=== PATIENT | female | born 1990 | race Caucasian/White ===

== ENCOUNTER 2021-04-27 09:33 | Day surgery (SDC) | payer SELFPAY ==
[2021-04-27] VITALS (7 sets, daily range): BP systolic 112–126; BP diastolic 73–81; PULSE 72–112; RESP 16–18; TEMP 36.3–36.9; O2SAT 98–100; BMI 41.4
--- NOTE | 2021-04-27 | COLBX_PTH ---
PATIENT: WALT SANCHEZ LOC: EN U#:[id number] AGE/SX: 31/F ROOM: RE04/27/[address]: Dr. Adalberto Peterson DO : 1990 BED: DIS: 04/27/2021 SPEC #: [id number] RECD: 04/27/21 14:18 STATUS: MERON CINDY #: [id number] SHAWN: 04/27/21 00:[address]: Adalberto Peterson DEPT: SURGICAL PATHOLOGY RECD BY: Hugh Watkins ENTERED: 04/28/21 09:03 SP TYPE: COLON BX OTHR DR: Heidy Hopkins, OSTOMY RN-C Tissues: A - Ileum, NOS B - COLON BIOPSY C - Rectum, NOS Procedures: Surgery Specimen Level IV HEADER OPERATION: Colonoscopy PRE-OP DIAGNOSIS: Lower GI bleeding TISSUE SUBMITTED: A - Terminal ileum biopsy, B - Random colon biopsies, C - Biopsy of rectal polyp MICROSCOPIC DIAGNOSIS A. Terminal ileum, biopsy: Fragments of small intestinal mucosa, no pathologic diagnosis. B. Colon, random biopsy: Moderate to marked chronic active colitis. Negative for dysplasia. See microscopic description and comment. C. Rectal polyp, biopsy: Fragments of inflammatory pseudopolyp. Moderate to marked chronic active colitis. Negative for dysplasia. See microscopic description and comment. SJ:rg 04/29/2021 COMMENT B & C. The findings are consistent with inflammatory bowel disease (ulcerative colitis). Correlation with clinical, endoscopic findings and appropriate follow up are necessary. MICROSCOPIC DESCRIPTION Slides are reviewed. B & C. Both specimens show similar morphologic changes. Specimens show fragments of colonic mucosa with ulceration, moderate to marked acute and chronic inflammatory cell infiltrate in the lamina propria, cryptitis, crypt abscesses, glandular distortion and lymphoid aggregates. Granuloma or dysplasia is not seen. Specimen C also shows two fragments of inflammatory pseudopolyp. GROSS DESCRIPTION A - Received in fixative is one container labeled with the patient's name and designated terminal ileum biopsy. The specimen consists of multiple irregular fragments of light dejesus soft tissue that in aggregate measure 1 x 0.5 x 0.1 cm. The specimen is totally submitted in one cassette. B - Received in fixative is one container labeled with the patient's name and designated random colon biopsy. The specimen consists of multiple irregular fragments of light dejesus soft tissue that in aggregate measure 1.5 x 0.3 x 0.1 cm. The specimen is totally submitted in one cassette. C - Received in fixative is one container labeled with the patient's name and designated biopsy of rectal polyp. The specimen consists of multiple irregular fragments of light dejesus soft tissue that in aggregate measure 1 x 0.4 x 0.1 cm. The specimen is totally submitted in one cassette. / SJ:rg 04/28/21 TC:2 CPT: 24795 x3
[2021-04-27] MEDS: Lactated Ringers 1,000 ML 100 ML IV (10:08)
--- NOTE | 2021-04-27 11:09 | PCM.HP.BLA ---
History and Physical Date of Admission: 04/27/21 WALT SANCHEZ, is a 31 F who presents to the office today for evaluation of blood in her stools. She says that for many years she has had IBS type symptoms with bloating, cramping and occasional diarrhea. In December however she developed worsening diarrhea and it progressed to lower GI bleeding. The lower GI bleeding always accompanied urgency and frequency. She also will get cramping in the left lower quadrant and the periumbilical region. She has no family history of inflammatory bowel disease. She has not started any new medicines recently. She has been under some stress from work and due to the illness of her grandmother. She does not take any blood thinners. She does take vitamin C and aspirin on occasion. She has no bleeding issues. She has not had any surgery. She does not have any children. She did have some stool studies which were negative for C. difficile and enteric pathogens. However her fecal calprotectin was grossly abnormal. She has been taking a probiotic and Imodium and it has been helping however she still is having bleeding on a daily basis. All other 16 review of systems are negative except as per positive mentioned HPI. ROS Const Constitutional: Positive for weight change (Loss) Gastro GI: Positive for change in bowel habits and diarrhea Psych Psychiatric: Positive for anxiety Exam Const General: cooperative and comfortable Nutritional Appearance: average body habitus and well nourished [facility] Head: normal to inspection Ears: hearing grossly normal bilaterally Nose: external nose normal Face and sinus: normal facial exam Mouth: oral mucosae normal Throat: posterior oropharynx normal Eyes General: appearance normal, both eyes and all related structures Neck Neck: normal visual inspection Chest Chest palpation & inspection: normal inspection of the chest and normal palpation of entire chest wall Resp Effort & Inspection: normal respiratory effort Auscultation: Bilateral: Clear to Auscultation Cardio Palpation: normal PMI Rate: regular rate Rhythm: regular rhythm GI Inspection: normal to inspection Auscultation: normal bowel sounds Percussion: normal to percussion Palpation: no hepatosplenomegaly Skin General: no rashes or lesions noted Neuro General: patient alert Extrem General: normal to inspection Psych Affect: normal affect Assessment and Plan Assessment and Plan (1) Lower GI bleeding: Status: Acute Plan - Dr. Glover Friend, DO: The differential diagnosis for lower GI bleeding include ulcerative colitis, less likely Crohn's disease, infectious colitis ,proctitis, hemorrhoidal disease, anal fissure and less likely AVMs. She should undergo colonoscopy to evaluate her lower GI tract. She was explained alternatives, risk, benefits including outstanding bleeding, infection, sepsis, perforation, need for emergency or . She will have an ASA of 1. Plan Details Other Medications: New: polyethylene glycol 3350 (Miralax) 17 grams PO Q10M 238 grams 0RF bisacodyl 20 mg (4 x 5 mg) PO ONCE 4 tabs 0RF This is an updated H&P from a recent office visit. Nothing is changed since she was seen in the office.
--- NOTE | 2021-04-27 12:50 | OP.CCLET_ITS ---
03/23/2022 Heidy Hopkins Re : Colonoscopy procedure for Megan Hopkins This procedure was performed on Tuesday, April 27, 2021. My impressions and recommendations are as follows: Impressions : - Moderately active (Chery Score 2) pancolitis ulcerative colitis. Biopsied. - One benign appearing 5 mm polyp in the rectum, removed with a jumbo cold forceps. Resected and retrieved. - Congested mucosa in the distal ileum. Biopsied. Recommendations : - Discharge patient to home. - Resume previous diet today. - Use Entocort EC (budesonide) 9 mg PO one time per day today. - Vancocin (vancomycin) 125 mg PO QID for 2 weeks. - Continue present medications. - Repeat colonoscopy in 1 year for surveillance based on pathology results. - Return to GI office in 2 weeks. My findings are described in the full procedure note, which is enclosed. If I can be of further assistance, please feel free to contact me at . Sincerely, Adalberto Peterson, 04/27/2021 12:50:06 PM This report has been signed electronically.
--- NOTE | 2021-04-27 12:50 | OP.COLON_ITS ---
Patient Name: Megan Meza Procedure Date: 04/27/2021 12:11 PM Date of : 1990 Age: 31 Procedure: Colonoscopy Indications: Suspected chronic ulcerative pancolitis Providers: Adalberto Peterson DO Medicines: Monitored Anesthesia Care Patient Profile: This is a 31 year old female. Refer to note in patient chart for documentation of history and physical. Last Colonoscopy: none. The patient's first colonoscopy is today. Complications: No immediate complications. Procedure: Pre-Anesthesia Assessment: - Prior to the procedure, a History and Physical was performed, and patient medications and allergies were reviewed. The patient is competent. The risks and benefits of the procedure and the sedation options and risks were discussed with the patient. All questions were answered and informed consent was obtained. Patient identification and proposed procedure were verified by the physician in the pre-procedure area. Mental Status Examination: alert and oriented. Respiratory Examination: clear to auscultation. Prophylactic Antibiotics: The patient does not require prophylactic antibiotics. Prior Anticoagulants: The patient has taken no previous anticoagulant or antiplatelet agents. ASA Grade Assessment: II - A patient with mild systemic disease. After reviewing the risks and benefits, the patient was deemed in satisfactory condition to undergo the procedure. The anesthesia plan was to use moderate sedation / analgesia (conscious sedation). Immediately prior to administration of medications, the patient was re-assessed for adequacy to receive sedatives. The heart rate, respiratory rate, oxygen saturations, blood pressure, adequacy of pulmonary ventilation, and response to care were monitored throughout the procedure. The physical status of the patient was re-assessed after the procedure. After I obtained informed consent, the scope was passed under direct vision. Throughout the procedure, the patient's blood pressure, pulse, and oxygen saturations were monitored continuously. The Colonoscope was introduced through the anus and advanced to the cecum, identified by appendiceal orifice and ileocecal valve. The colonoscopy was performed without difficulty. The patient tolerated the procedure well. The quality of the bowel preparation was good. Moderate Sedation: Moderate (conscious) sedation was personally administered by an anesthesia professional. The following parameters were monitored: oxygen saturation, heart rate, blood pressure, and response to care. Scope In: 12:27:12 PM Scope Out: 12:41:56 PM Total Procedure Duration Time 0 hours 14 minutes 44 seconds Findings: The perianal and digital rectal examinations were normal. Inflammation was found in a continuous and circumferential pattern from the anus to the cecum. This was graded as Chery Score 2 (moderate, with marked erythema, absent vascular pattern, friability, erosions). Biopsies were taken with a cold forceps for histology. Verification of patient identification for the specimen was done. Estimated blood loss was minimal. A 5 mm polyp was found in the rectum (benign-appearing lesion). The polyp was sessile. The polyp was removed with a jumbo cold forceps. Resection and retrieval were complete. Verification of patient identification for the specimen was done. Estimated blood loss was minimal. A patchy area of the distal ileum was congested. This was biopsied with a cold forceps for histology. Verification of patient identification for the specimen was done. Estimated blood loss was minimal. Impression: - Moderately active (Chery Score 2) pancolitis ulcerative colitis. Biopsied. - One benign appearing 5 mm polyp in the rectum, removed with a jumbo cold forceps. Resected and retrieved. - Congested mucosa in the distal ileum. Biopsied. Recommendation: - Discharge patient to home. - Resume previous diet today. - Use Entocort EC (budesonide) 9 mg PO one time per day today. - Vancocin (vancomycin) 125 mg PO QID for 2 weeks. - Continue present medications. - Repeat colonoscopy in 1 year for surveillance based on pathology results. - Return to GI office in 2 weeks. Procedure Code(s): --- Professional --- 20838, Colonoscopy, flexible; with biopsy, single or multiple CPT copyright 2017 [employer]. All rights reserved. The codes documented in this report are preliminary and upon emotional disabilities teacher review may be revised to meet current compliance requirements. Adalberto Peterson DO 04/27/2021 12:50:06 PM This report has been signed electronically. Number of Addenda: 1 Note Initiated On: 04/27/2021 12:11 PM Addendum Number: 1 Addendum Date: 03/23/2022 4:22:13 PM MAC was used instead of moderate sedation for this patient. Adalberto Peterson DO 03/23/2022 4:22:18 PM This report has been signed electronically.
== END 2021-04-27 13:42 ==
LOC: EN 09:46 → AC 09:56
PROVIDERS: PCP Nurse Practitioner Family; Referring Provider Nurse Practitioner Family; Visit Provider Internal Medicine Gastroenterology
PROC: 0DJD8ZZ Inspection of Lower Intestinal Tract, Via Natural or Artificial Opening Endoscopic (ICD-10-PCS; CPT 45378; principal; 2021-04-27 10:55)
DX: K51.011 Ulcerative (chronic) pancolitis with rectal bleeding (principal); K62.1 Rectal polyp; L70.9 Acne, unspecified; E28.2 Polycystic ovarian syndrome; R63.4 Abnormal weight loss; Z79.82 Long term (current) use of aspirin; Z79.899 Other long term (current) drug therapy; Z68.41 Body mass index [BMI] 40.0-44.9, adult
CPT/HCPCS: 45380; 87493; 87506; 88305; J7120; J2405

== ENCOUNTER 2021-07-27 16:43 | Outpatient (CLI) | payer OTHER, SELFPAY ==
[2021-07-27 16:57] LABS: Absolute Lymphocyte Count 3.23 X10^3/uL (0.83-4.51); Absolute Neutrophil Count 7.4 X10^3/uL (2.0-7.7); Basophil# 0.06 X10^3/uL; Basophil% 0.5 % (0-1); Eosinophil# 0.53 X10^3/uL; Eosinophils% 4.3 % (0-5); Hematocrit 36.8 % (37-47); Hemoglobin 11.9 g/dL (12.0-15.0); Lymphocyte # 3.23 X10^3/ul (0.83-4.51); Lymphocyte % 26.3 % (19-41); Mean Corp Hgb Conc 32.3 g/dL (32-36); Mean Corpuscular Hgb 27.4 pg (27.0-32.0); Mean Corpuscular Volume 84.8 fL (81-99); Mean Platelet Vol. 9.3 fl (6.2-12.0); Monocyte# 1.05 X10^3/uL; Monocyte% 8.5 % (0-10); NRBC Flagged by Analyzer 0 % (0-5); Neutrophil # 7.37 X10^3/uL (2.7-7.7); Neutrophil % 59.9 % (47-70); Platelet Count 455 K/mm3 (150-450); RBC Distribution Width CV 14.8 % (11.6-14.6); RBC Distribution Width SD 45.4 fl (35.1-43.9); Red Blood Count 4.34 M/mm3 (4.2-5.4); White Blood Count 12.3 K/mm3 (4.4-11.0)
[2021-07-27 17:14] LABS: ALB/GLOB Ratio 0.6 RATIO (0.9-2.4); AST(SGOT) 17 U/L (15-37); Alanine Aminotransfer ALT/SGPT 24 U/L (13-56); Albumin, Serum 3.1 g/dL (3.2-5.0); Alkaline Phosphatase 105 U/L (45-117); Anion Gap 8 (5-15); BUN 8 mg/dL (7-18); BUN/Creat Ratio 10.5 RATIO (10-20); Calcium,Total 9.6 mg/dL (8.5-10.1); Chloride 104 mmol/L (98-107); Creatinine, Serum 0.76 mg/dL (0.55-1.02); EST Glomerular Filtration Rate 94 mL/min (>60); Est Glom Filt Rate - Afr Amer 114 mL/min (>60); Globulin 5.3 g/dL (2.2-4.2); Glucose 84 mg/dL (74-106); Potassium 3.8 mmol/L (3.5-5.1); Protein, Total 8.4 g/dL (6.4-8.2); Sodium Level 139 mmol/L (136-145)
[2021-07-27 17:42] LABS: Erythrocyte Sedimentation Rate 49 mm/hr (0-30)
[2021-07-28 06:27] LABS: Rubella IgG Reactive (Nonreactive)
[2021-08-02 00:06] LABS: HEPATITIS B SURFACE AG Negative (Negative); Hepatitis A IgM Antibody Negative (Negative); Hepatitis B Core AB IgM Negative (Negative)
[2021-08-02 08:47] LABS: B. pertussis IgG 1.88 index (0.00-0.94); Hep C Antibodies <0.1 s/co ratio (0.0-0.9); Mumps Antibody, IgM < 0.80 AU (0.00-0.79); V-Zoster IgG (Immunity) 219 index (Immune >165)
== END 2021-07-27 23:59 | disposition short-term general hospital (02) ==
LOC: LAB 16:45
PROVIDERS: PCP Nurse Practitioner Family; Visit Provider Internal Medicine Gastroenterology
DX: K51.90 Ulcerative colitis, unspecified, without complications (principal)
CPT/HCPCS: 36415; 80053; 80074; 85025; 85652; 86140; 86735; 86762; 86787

== ENCOUNTER 2021-08-17 12:46 | Outpatient (CLI) | payer OTHER, SELFPAY ==
--- NOTE | 2021-08-17 12:50 | CT_ITS ---
STUDY: CT ABDOMEN AND PELVIS WITH CONTRAST REASON FOR EXAM: Female, 31 years old. Abdominal pain, ulcerative colitis RADIATION DOSAGE (If Supplied By Facility): CTDIvol = ( 22.06 ) mGy, DLP = ( 1221.07 ) mGycm TECHNIQUE: Transaxial images were obtained from the dome of the diaphragm to the symphysis pubis with oral contrast. Oral and amp; IV Gastrografin and amp; 100mL Isovue-300 was administered. Sagittal and coronal images were reconstructed. Individualized dose optimization techniques were used for this CT. COMPARISON: None. FINDINGS: The visualized lung bases are unremarkable. The visualized portions of the heart are within normal limits. Normal liver. Normal gallbladder and extrahepatic biliary system. Normal spleen. Normal pancreas. Normal bilateral adrenal glands. Normal right kidney. Normal left kidney. Normal visualized stomach. Normal small intestine. Normal colon. The appendix is visualized and appears normal. Normal abdominal aorta. Normal inferior vena cava. Normal retroperitoneum. Normal urinary bladder. Normal abdominal wall. Normal osseous structures. CT/Abdomen/Pelvis WITH Contrast IMPRESSION: Normal enhanced CT of the abdomen and pelvis. Electronically Signed: Henri Bazan MD at 15:17 [facility] ,
== END 2021-08-17 23:59 | disposition short-term general hospital (02) ==
LOC: CT 12:48
PROVIDERS: PCP Nurse Practitioner Family; Referring Provider Internal Medicine Gastroenterology; Visit Provider Internal Medicine Gastroenterology
DX: K51.90 Ulcerative colitis, unspecified, without complications (principal)
CPT/HCPCS: 74177; Q9967

== ENCOUNTER 2021-09-07 14:56 | Outpatient (CLI) | payer OTHER, SELFPAY ==
[2021-09-07 15:34] LABS: Absolute Lymphocyte Count 2.35 X10^3/uL (0.83-4.51); Absolute Neutrophil Count 9.2 X10^3/uL (2.0-7.7); Basophil# 0.06 X10^3/uL; Basophil% 0.5 % (0-1); Eosinophil# 0.13 X10^3/uL; Hematocrit 37.6 % (37-47); Hemoglobin 12.1 g/dL (12.0-15.0); Lymphocyte # 2.35 X10^3/ul (0.83-4.51); Lymphocyte % 18.6 % (19-41); Mean Corp Hgb Conc 32.2 g/dL (32-36); Mean Corpuscular Hgb 27.5 pg (27.0-32.0); Mean Corpuscular Volume 85.5 fL (81-99); Mean Platelet Vol. 10.1 fl (6.2-12.0); Monocyte# 0.84 X10^3/uL; Monocyte% 6.6 % (0-10); NRBC Flagged by Analyzer 0 % (0-5); Neutrophil # 9.21 X10^3/uL (2.7-7.7); Neutrophil % 72.9 % (47-70); Platelet Count 364 K/mm3 (150-450); RBC Distribution Width CV 15.2 % (11.6-14.6); RBC Distribution Width SD 47.5 fl (35.1-43.9); White Blood Count 12.6 K/mm3 (4.4-11.0)
[2021-09-07 15:56] LABS: ALB/GLOB Ratio 0.7 RATIO (0.9-2.4); AST(SGOT) 10 U/L (15-37); Alanine Aminotransfer ALT/SGPT 17 U/L (13-56); Albumin, Serum 3.1 g/dL (3.2-5.0); Alkaline Phosphatase 86 U/L (45-117); Anion Gap 8 (5-15); BUN 9 mg/dL (7-18); BUN/Creat Ratio 10.1 RATIO (10-20); Calcium,Total 8.9 mg/dL (8.5-10.1); Chloride 106 mmol/L (98-107); Creatinine, Serum 0.89 mg/dL (0.55-1.02); EST Glomerular Filtration Rate 79 mL/min (>60); Est Glom Filt Rate - Afr Amer 95 mL/min (>60); Globulin 4.6 g/dL (2.2-4.2); Glucose 124 mg/dL (74-106); Potassium 3.5 mmol/L (3.5-5.1); Protein, Total 7.7 g/dL (6.4-8.2); Sodium Level 137 mmol/L (136-145)
[2021-09-07 15:59] LABS: Erythrocyte Sedimentation Rate 36 mm/hr (0-30)
[2021-09-09 20:08] LABS: QNTFERON TB Mitogen Value > 10.00 IU/mL (.); QNTFERON TB Nil Value 0.02 IU/mL (.); QNTFERON TB1+ Ag Value 0.03 IU/mL (.); QNTFERON TB2+ Ag Value 0.03 IU/mL (.)
[2021-09-09 20:26] LABS: QNTIFERON TB Positive Criteria Negative (Negative)
== END 2021-09-07 23:59 | disposition home or self-care (01) ==
LOC: LAB 14:58
PROVIDERS: Nurse Practitioner Adult Health; PCP Nurse Practitioner Family; Referring Provider Internal Medicine Gastroenterology; Visit Provider Internal Medicine Gastroenterology
DX: K51.90 Ulcerative colitis, unspecified, without complications (principal)
CPT/HCPCS: 36415; 80053; 85025; 85652; 86140; 86480

== ENCOUNTER 2021-09-14 07:09 | Outpatient (CLI) | payer OTHER, SELFPAY ==
[2021-09-16 17:21] LABS: Calprotectin, Stool 62 ug/g (0-120)
== END 2021-09-14 23:59 | disposition home or self-care (01) ==
LOC: LABSPEC 07:11
PROVIDERS: PCP Nurse Practitioner Family; Referring Provider Nurse Practitioner Adult Health; Visit Provider Nurse Practitioner Adult Health
DX: K51.90 Ulcerative colitis, unspecified, without complications (principal)
CPT/HCPCS: 83993

== ENCOUNTER 2021-11-02 12:36 | Outpatient (CLI) | payer OTHER, SELFPAY | END 2021-11-02 23:59 | disposition home or self-care (01) | LOC: LAB 12:39 | PROVIDERS: PCP Nurse Practitioner Family; Referring Provider Internal Medicine Gastroenterology; Visit Provider Internal Medicine Gastroenterology | DX: K51.90 Ulcerative colitis, unspecified, without complications (principal) ==

== ENCOUNTER → 2021-12-27 | Outpatient (CLI) | payer OTHER, SELFPAY ==
--- NOTE | 2021-12-27 17:38 | MRI_ITS ---
STUDY: MRI RIGHT ANKLE WITHOUT CONTRAST REASON FOR EXAM: Chronic right ankle pain and instability for approximately 9 years. TECHNIQUE: Standardized fat and water weighted pulse sequences were obtained in all 3 orthogonal planes. COMPARISON: None. FINDINGS: Normal subcutis adipose space. There is a very small volume of fluid in the. Normal talar posterior tibialis tendon sheath (T2 axial images 15-17). The posterior tibialis tendon is morphologically normal. There is a very small volume of fluid in the flexor digitorum longus tendon sheath proximal to the sustentaculum maria r (T2 axial images 15-17). The flexor digitorum longus tendon is morphologically normal. There is fluid in the flexor hallucis longus tendon sheath, proximal and distal to the sustentaculum maria r (inversion recovery sagittal image 8). Normal peroneus longus and brevis tendons. Normal tibialis anterior tendon. Normal extensor hallucis longus tendon. Normal extensor digitorum longus tendons. Normal Achilles tendon and teno-osseous insertion. Normal plantar fascia. Normal plantar calcaneal tubercles. Normal intrinsic muscles of the rearfoot. Normal distal tibiofibular syndesmotic ligamentous complex. There is a chronic tear of the anterior talofibular ligament (T2 axial image 17). Normal calcaneofibular and posterior talofibular ligaments. Normal subtalar ligaments and sinus tarsi. Normal deltoid ligamentous complexes. Normal plantar calcaneonavicular (spring) ligament. There is a very small osteochondral lesion of the anterior lateral aspect of the talar dome of T2 coronal image 16; inversion recovery sagittal image 17) measuring proximal 0.25 cm in AP and transverse dimensions. Normal subtalar articulations. There is a small os trigonum. 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 Normal talonavicular articulation. Normal calcaneocuboid articulation. Normal navicular-cuneiform articulations. MRI/Lower Ext Joint Only (Routine) IMPRESSION: Chronic tear of the anterior talofibular ligament. Very small osteochondral lesion of the anterior lateral talar dome. Flexor hallucis longus tenosynovitis. Very mild posterior tibialis and flexor digitorum longus tenosynovitis. Nonosseous calcaneonavicular coalition. Electronically Signed: Hermelindo Mederos MD at 12:01 EDT Reading Location ID and State: [facility] / [place] Tel , Service support ,
== END | disposition home or self-care (01) ==
PROVIDERS: PCP Nurse Practitioner Family; Referring Provider Podiatrist; Visit Provider Podiatrist
DX: M93.271 Osteochondritis dissecans, right ankle and joints of right foot (principal)
CPT/HCPCS: 73721

== ENCOUNTER → 2021-12-28 | Outpatient (CLI) | payer OTHER, SELFPAY ==
[2021-12-28 13:43] LABS: Absolute Lymphocyte Count 3.14 X10^3/uL (0.83-4.51); Basophil# 0.05 X10^3/uL; Basophil% 0.6 % (0-1); Eosinophil# 0.16 X10^3/uL; Eosinophils% 1.8 % (0-5); Hematocrit 37.3 % (37-47); Hemoglobin 12.1 g/dL (12.0-15.0); Lymphocyte # 3.14 X10^3/ul (0.83-4.51); Lymphocyte % 34.5 % (19-41); Mean Corp Hgb Conc 32.4 g/dL (32-36); Mean Corpuscular Hgb 27.9 pg (27.0-32.0); Mean Corpuscular Volume 86.1 fL (81-99); Mean Platelet Vol. 10.6 fl (6.2-12.0); Monocyte# 0.74 X10^3/uL; Monocyte% 8.1 % (0-10); NRBC Flagged by Analyzer 0 % (0-5); Neutrophil # 4.98 X10^3/uL (2.7-7.7); Neutrophil % 54.8 % (47-70); Platelet Count 340 K/mm3 (150-450); RBC Distribution Width CV 13.6 % (11.6-14.6); RBC Distribution Width SD 42.5 fl (35.1-43.9); Red Blood Count 4.33 M/mm3 (4.2-5.4); White Blood Count 9.1 K/mm3 (4.4-11.0)
[2021-12-28 13:54] LABS: Prothrombin Time (Protime)PT. 12.9 SECONDS (11.7-14.9)
[2021-12-28 14:32] LABS: ALB/GLOB Ratio 0.7 RATIO (0.9-2.4); AST(SGOT) 14 U/L (15-37); Alanine Aminotransfer ALT/SGPT 21 U/L (13-56); Albumin, Serum 3.3 g/dL (3.2-5.0); Alkaline Phosphatase 78 U/L (45-117); Anion Gap 10 (5-15); BUN 8 mg/dL (7-18); BUN/Creat Ratio 10.5 RATIO (10-20); Calcium,Total 9.3 mg/dL (8.5-10.1); Chloride 105 mmol/L (98-107); Creatinine, Serum 0.76 mg/dL (0.55-1.02); EST Glomerular Filtration Rate 94 mL/min (>60); Est Glom Filt Rate - Afr Amer 114 mL/min (>60); Globulin 4.6 g/dL (2.2-4.2); Glucose 107 mg/dL (74-106); Potassium 3.5 mmol/L (3.5-5.1); Protein, Total 7.9 g/dL (6.4-8.2); Sodium Level 138 mmol/L (136-145)
== END | disposition home or self-care (01) ==
LOC: LAB 13:16
PROVIDERS: PCP Nurse Practitioner Family; Referring Provider Internal Medicine Gastroenterology; Visit Provider Internal Medicine Gastroenterology
DX: K51.911 Ulcerative colitis, unspecified with rectal bleeding (principal)
CPT/HCPCS: 80053; 85025; 85610; 86769

== ENCOUNTER → 2022-01-04 | Outpatient (CLI) | payer OTHER, SELFPAY ==
[2022-01-04 16:46] LABS: Erythrocyte Sedimentation Rate 20 mm/hr (0-30)
== END | disposition home or self-care (01) ==
PROVIDERS: PCP Nurse Practitioner Family; Visit Provider Internal Medicine Gastroenterology
DX: K51.911 Ulcerative colitis, unspecified with rectal bleeding (principal)
CPT/HCPCS: 36415; 85652; 86140

== ENCOUNTER → 2022-03-22 | Outpatient (CLI) | payer OTHER, SELFPAY ==
[2022-03-22 15:20] LABS: Erythrocyte Sedimentation Rate 33 mm/hr (0-30)
[2022-03-22 15:22] LABS: Absolute Lymphocyte Count 3.21 X10^3/uL (0.83-4.51); Absolute Neutrophil Count 5.9 X10^3/uL (2.0-7.7); Basophil# 0.04 X10^3/uL; Basophil% 0.4 % (0-1); Eosinophil# 0.09 X10^3/uL; Eosinophils% 0.9 % (0-5); Hematocrit 37.5 % (37-47); Hemoglobin 12.4 g/dL (12.0-15.0); Lymphocyte # 3.21 X10^3/ul (0.83-4.51); Lymphocyte % 31.8 % (19-41); Mean Corp Hgb Conc 33.1 g/dL (32-36); Mean Corpuscular Hgb 28.8 pg (27.0-32.0); Mean Corpuscular Volume 87.2 fL (81-99); Mean Platelet Vol. 10.9 fl (6.2-12.0); Monocyte# 0.85 X10^3/uL; Monocyte% 8.4 % (0-10); NRBC Flagged by Analyzer 0 % (0-5); Neutrophil # 5.86 X10^3/uL (2.7-7.7); Neutrophil % 58.2 % (47-70); Platelet Count 301 K/mm3 (150-450); RBC Distribution Width CV 13.1 % (11.6-14.6); RBC Distribution Width SD 41.1 fl (35.1-43.9); White Blood Count 10.1 K/mm3 (4.4-11.0)
[2022-03-22 16:02] LABS: ALB/GLOB Ratio 0.7 RATIO (0.9-2.4); AST(SGOT) 12 U/L (15-37); Alanine Aminotransfer ALT/SGPT 18 U/L (13-56); Albumin, Serum 3.2 g/dL (3.2-5.0); Alkaline Phosphatase 74 U/L (45-117); Anion Gap 6 (5-15); BUN 9 mg/dL (7-18); BUN/Creat Ratio 10.5 RATIO (10-20); Calcium,Total 9.3 mg/dL (8.5-10.1); Chloride 105 mmol/L (98-107); Creatinine, Serum 0.86 mg/dL (0.55-1.02); EST Glomerular Filtration Rate 82 mL/min (>60); Est Glom Filt Rate - Afr Amer 99 mL/min (>60); Globulin 4.6 g/dL (2.2-4.2); Glucose 97 mg/dL (74-106); Potassium 3.5 mmol/L (3.5-5.1); Protein, Total 7.8 g/dL (6.4-8.2); Sodium Level 138 mmol/L (136-145)
== END | disposition home or self-care (01) ==
PROVIDERS: PCP Nurse Practitioner Family; Visit Provider Internal Medicine Gastroenterology
DX: K51.911 Ulcerative colitis, unspecified with rectal bleeding (principal)
CPT/HCPCS: 36415; 80053; 85025; 85652; 86140

== ENCOUNTER → 2022-07-05 | Outpatient (CLI) | payer OTHER, SELFPAY ==
[2022-07-05 13:32] LABS: Erythrocyte Sedimentation Rate 21 mm/hr (0-30)
[2022-07-05 13:34] LABS: Absolute Neutrophil Count 7.2 X10^3/uL (2.0-7.7); Basophil# 0.07 X10^3/uL; Basophil% 0.5 % (0-1); Eosinophil# 0.11 X10^3/uL; Eosinophils% 0.9 % (0-5); Hemoglobin 13.3 g/dL (12.0-15.0); Lymphocyte % 34.5 % (19-41); Mean Corp Hgb Conc 31.7 g/dL (32-36); Mean Corpuscular Hgb 28.5 pg (27.0-32.0); Mean Corpuscular Volume 89.9 fL (81-99); Mean Platelet Vol. 10.8 fl (6.2-12.0); Monocyte# 0.94 X10^3/uL; Monocyte% 7.4 % (0-10); NRBC Flagged by Analyzer 0 % (0-5); Neutrophil # 7.19 X10^3/uL (2.7-7.7); Neutrophil % 56.2 % (47-70); Platelet Count 356 K/mm3 (150-450); RBC Distribution Width CV 13.5 % (11.6-14.6); RBC Distribution Width SD 44.2 fl (35.1-43.9); Red Blood Count 4.67 M/mm3 (4.2-5.4); White Blood Count 12.8 K/mm3 (4.4-11.0)
[2022-07-05 13:54] LABS: ALB/GLOB Ratio 0.8 RATIO (0.9-2.4); AST(SGOT) 24 U/L (15-37); Alanine Aminotransfer ALT/SGPT 57 U/L (13-56); Albumin, Serum 3.9 g/dL (3.2-5.0); Alkaline Phosphatase 86 U/L (45-117); Anion Gap 4 (5-15); BUN 11 mg/dL (7-18); BUN/Creat Ratio 13.2 RATIO (10-20); CRP 4.63 mg/L (0.0-3.0); Calcium,Total 9.5 mg/dL (8.5-10.1); Chloride 101 mmol/L (98-107); Creatinine, Serum 0.84 mg/dL (0.55-1.02); EST Glomerular Filtration Rate 84 mL/min (>60); Est Glom Filt Rate - Afr Amer 102 mL/min (>60); Globulin 4.6 g/dL (2.2-4.2); Glucose 97 mg/dL (74-106); Potassium 3.4 mmol/L (3.5-5.1); Protein, Total 8.5 g/dL (6.4-8.2); Sodium Level 136 mmol/L (136-145)
== END | disposition home or self-care (01) ==
LOC: LAB 13:06
PROVIDERS: PCP Nurse Practitioner Family; Referring Provider Internal Medicine Gastroenterology; Visit Provider Internal Medicine Gastroenterology
DX: K51.911 Ulcerative colitis, unspecified with rectal bleeding (principal)
CPT/HCPCS: 36415; 80053; 85025; 85652; 86140

== ENCOUNTER → 2022-09-27 | Outpatient (CLI) | payer OTHER, SELFPAY ==
[2022-09-27 15:27] LABS: Vitamin D,25 Hydroxy 25.1 ng/mL
== END | disposition home or self-care (01) ==
PROVIDERS: PCP Nurse Practitioner Family
DX: E55.9 Vitamin D deficiency, unspecified (principal)
CPT/HCPCS: 36415; 82306

== ENCOUNTER → 2022-12-30 | Outpatient (CLI) | payer OTHER, SELFPAY ==
[2022-12-30 11:17] LABS: Absolute Lymphocyte Count 3.88 X10^3/uL (0.83-4.51); Absolute Neutrophil Count 5.7 X10^3/uL (2.0-7.7); Basophil# 0.09 X10^3/uL; Basophil% 0.8 % (0-1); Eosinophils% 1.9 % (0-5); Hematocrit 41.1 % (37-47); Hemoglobin 13.3 g/dL (12.0-15.0); Lymphocyte # 3.88 X10^3/ul (0.83-4.51); Lymphocyte % 36.5 % (19-41); Mean Corp Hgb Conc 32.4 g/dL (32-36); Mean Corpuscular Hgb 29.6 pg (27.0-32.0); Mean Corpuscular Volume 91.3 fL (81-99); Monocyte# 0.68 X10^3/uL; Monocyte% 6.4 % (0-10); NRBC Flagged by Analyzer 0 % (0-5); Neutrophil # 5.74 X10^3/uL (2.7-7.7); Neutrophil % 54.1 % (47-70); Platelet Count 313 K/mm3 (150-450); RBC Distribution Width SD 43.6 fl (35.1-43.9); White Blood Count 10.6 K/mm3 (4.4-11.0)
[2022-12-30 11:42] LABS: Erythrocyte Sedimentation Rate 23 mm/hr (0-30)
[2022-12-30 12:07] LABS: ALB/GLOB Ratio 0.9 RATIO (0.9-2.4); AST(SGOT) 23 U/L (15-37); Alanine Aminotransfer ALT/SGPT 42 U/L (13-56); Albumin, Serum 3.6 g/dL (3.2-5.0); Alkaline Phosphatase 82 U/L (45-117); Anion Gap 3 (5-15); BUN 9 mg/dL (7-18); BUN/Creat Ratio 10.6 RATIO (10-20); CRP 6.62 mg/L (0.0-3.0); Calcium,Total 8.9 mg/dL (8.5-10.1); Chloride 105 mmol/L (98-107); Creatinine, Serum 0.85 mg/dL (0.55-1.02); EST Glomerular Filtration Rate 83 mL/min (>60); Est Glom Filt Rate - Afr Amer 100 mL/min (>60); Globulin 4.2 g/dL (2.2-4.2); Glucose 118 mg/dL (74-106); Potassium 3.5 mmol/L (3.5-5.1); Protein, Total 7.8 g/dL (6.4-8.2); Sodium Level 137 mmol/L (136-145)
[2023-01-02 16:09] LABS: QNTFERON TB Mitogen Value > 10.00 IU/mL (.); QNTFERON TB Nil Value 0.03 IU/mL (.); QNTFERON TB1+ Ag Value 0.08 IU/mL (.); QNTIFERON TB Positive Criteria Negative (Negative)
== END | disposition home or self-care (01) ==
PROVIDERS: PCP Nurse Practitioner Family; Referring Provider Internal Medicine Gastroenterology; Visit Provider Internal Medicine Gastroenterology
DX: K51.911 Ulcerative colitis, unspecified with rectal bleeding (principal)
CPT/HCPCS: 36415; 80053; 85025; 85652; 86140; 86480

== ENCOUNTER → 2023-02-28 | Outpatient (CLI) | payer OTHER, SELFPAY | END | disposition home or self-care (01) | PROVIDERS: PCP Nurse Practitioner Family; Referring Provider Internal Medicine Gastroenterology; Visit Provider Internal Medicine Gastroenterology | DX: K51.911 Ulcerative colitis, unspecified with rectal bleeding (principal) | CPT/HCPCS: 36415 ==

== ENCOUNTER → 2023-05-23 | Outpatient (CLI) | payer OTHER, SELFPAY ==
[2023-05-23 17:05] LABS: Erythrocyte Sedimentation Rate 8 mm/hr (0-30)
[2023-05-23 17:50] LABS: CRP 9.01 mg/L (0.0-3.0)
== END | disposition home or self-care (01) ==
PROVIDERS: PCP Nurse Practitioner Family; Visit Provider Internal Medicine Gastroenterology
DX: K51.911 Ulcerative colitis, unspecified with rectal bleeding (principal)
CPT/HCPCS: 36415; 85652; 86140

== ENCOUNTER 2023-07-30 05:17 | Day surgery (SDC) | payer OTHER, SELFPAY ==
--- NOTE | 2023-07-30 | COLBX_PTH ---
PATHOLOGY RESULTS PATIENT: WALT SANCHEZ LOC: EN U#:[id number] AGE/SX: 33/F ROOM: RE07/30/[address]: Dr. Adalberto Peterson DO : 1990 BED: DIS: 07/30/2023 SPEC #: [id number] RECD: 07/30/23 10:24 STATUS: MERON CINDY #: [id number] SHAWN: 07/30/23 00:[address]: Adalberto Peterson DEPT: SURGICAL PATHOLOGY RECD BY: Hugh Watkins ENTERED: 07/30/23 10:25 SP TYPE: COLON BX GINO DR: Heidy Hopkins, CHIPPING MACHINE OPERATOR-C Tissues: COLON BIOPSY Procedures: Surgery Specimen Level IV HEADER OPERATION: Colonoscopy with biopsy PRE-OP DIAGNOSIS: Ulcerative colitis TISSUE SUBMITTED: Random colon biopsy MICROSCOPIC DIAGNOSIS Colon, random biopsy: Fragments of colonic mucosa with glandular distortion. Negative for active inflammation. See comment. CAT:nadine 07/31/2023 COMMENT Correlation with clinical, endoscopic findings and appropriate follow up are necessary. Please make reference to previous specimen ([id number]), colon, right biopsy and rectal polyp, biopsy with diagnosis of moderate to marked chronic active colitis. MICROSCOPIC DESCRIPTION Slides are reviewed. GROSS DESCRIPTION Received in fixative is one container labeled with the patient's name and designated random colon biopsy. The specimen consists of multiple irregular fragments of light dejesus soft tissue that in aggregate measure 2.0 x 0.5 x 0.1 cm. The specimen is totally submitted in one cassette. / SJ:rg 07/30/2023 TC:5 CPT: 85837
--- OUTSIDE RECORDS SUMMARY | 2023-07-30 05:22 | XMS RPT_ITS | CCD ---
Author Name Unknown Address [address] [place] [address] Organization [facility] Care Team Providers Care Web Page Designer Name Role Phone CARRIE PAPER CUP HANDLE MACHINE OPERATOR-STONE SANDBLASTER, [place] Primary Care Physician CHAI CEJA MD Attending Unavailable LORSON PAPER CUP HANDLE MACHINE OPERATOR-STONE SANDBLASTER, [facility] Unavail able LORSON PAPER CUP HANDLE MACHINE OPERATOR-STONE SANDBLASTER, [facility] Unavail able LORSON PAPER CUP HANDLE MACHINE OPERATOR-STONE SANDBLASTER, DAWSON Attending Unavail able LORSON PAPER CUP HANDLE MACHINE OPERATOR-STONE SANDBLASTER, [place] Attending Unavail able LORSON PAPER CUP HANDLE MACHINE OPERATOR-STONE SANDBLASTER, [facility] Unavail able KATY CHADWICK MD Attending Unavail able LORSON PAPER CUP HANDLE MACHINE OPERATOR-STONE SANDBLASTER, [facility] Unavail able HENRY TREJO, DR JAN Muhammad Consulting Unavailable LORSON PAPER CUP HANDLE MACHINE OPERATOR-STONE SANDBLASTER, [facility] Unavail able BELEN CHAUDHARY MD, GILL Attending Unavailable BELEN CHAUDHARY MD, GILL Admitting Unavailable FREDY TREJO, DR NICK KITCHEN Consulting Unava debbyable FITZ TREJO, MARIXA Consulting Unavailable JOANNE TREJO, KEITH Consulting Unavailable SHLOMO TREJO, SAMM Consulting Unavailable AGUS RICE MD Attending Unavailable LORSON PAPER CUP HANDLE MACHINE OPERATOR-STONE SANDBLASTER, [facility] Unavail able GURJIT DPM, ABILIO Attending Unavailable GURJIT DPABILIO Muhammad Referring Unavailable LORSON PAPER CUP HANDLE MACHINE OPERATOR-STONE SANDBLASTER, [facility] Unavail able LORSON PAPER CUP HANDLE MACHINE OPERATOR-STONE SANDBLASTER, DAWSON Attending Unavail able LORSON PAPER CUP HANDLE MACHINE OPERATOR-STONE SANDBLASTER, [facility] Unavail able GURJIT DPM, ABILIO Attending Unavailable LORSON PAPER CUP HANDLE MACHINE OPERATOR-STONE SANDBLASTER, [facility] Unavail able GURJIT DPMABILIO Attending Unavailable LORSON PAPER CUP HANDLE MACHINE OPERATOR-STONE SANDBLASTER, [facility] Unavail able LORSON PAPER CUP HANDLE MACHINE OPERATOR-STONE SANDBLASTER, [facility] Unavail able DR JASON ALAS DO Attending Unavailable HARPER PIMENTEL MD Attending Unavailabl e LORSON PAPER CUP HANDLE MACHINE OPERATOR-STONE SANDBLASTER, [facility] able LOREN TREJO, HARPER Attending Jerzy LEGER, [facility] able LOREN TREJO, HARPER [facility]ending [facility] able Allergies Allergy Classification Reported Allergen(s) Allergy Type Date of Onset Reaction(s) Facility (7 sources) Acetaminophen / HYDROcodone; Translations: [acetaminophen-hyd rocodone] Drug Allergy Paranoid disorder (disorder) [facility] (6 sources) Melatonin; Translations: [melatonin] Drug Allergy [facility] (6 sources) Naproxen; Translations: [naproxen] Drug Allergy [facility] Medications Current Medications Medication Drug Class(es) Dates Sig (Normalized) Sig (Original) acetaminophen 325 mg / oxyCODONE hydrochloride 5 mg oral tablet (1 source) Opioid Agonist Start: 04-14-2022 End: 04-21-2022 take 1 tablet by mouth every four hours as needed for pain Percocet 5 mg-325 mg oral tablet Dose = 1 tab(s), Oral, q4h, PRN as needed for pain, X 7 day(s), # 30 tab(s), 0 Refill(s), Abdominal pain following cholangiogram, 127.8 Start Date: 04/14/22 Stop Date: 04/21/22 Status: Ordered 0.4 ml adalimumab 100 mg/ml auto-injector (7 sources) Tumor Necrosis Factor Geoffrey Start: 04-25-2022 Humira Pen 40 mg/0.4 mL subcutaneous kit 0 Refill(s) Start Date: 04/25/22 Status: Ordered Completed/Discontinued Medications Medication Drug Class(es) Dates Sig (Normalized) Sig (Original) clindamycin 10 mg/ml topical lotion (4 sources) Lincosamide Antibacterial Start: 07-27-2021 End: 10-25-2021 clindamycin 1% topical lotion Apply 1 dell, Topical, BID, # 60 mL, 2 Refill(s), Pharmacy: [facility], Lotion, 166.5, cm, 07/27/21 13:08:00 EST, Height, 116.9, kg, 07/27/21 13:08:00 EST, Dosing Weight Start Date: 07/27/21 Stop Date: 10/25/21 Status: Ordered {21 (Desogestrel 0.15 MG / Ethinyl Estradiol 0.03 MG Oral Tablet) / 7 (Inert Ingredients 1 MG Oral Tablet) } Pack [Enskyce 28 Day] (4 sources) Progestin, Estrogen Start: 04-05-2022 End: 03-31-2023 take 1 tablet by mouth once daily Enskyce 0.15 mg-0.03 mg oral tablet Dose = 1 tab(s), Oral, qDay, # 90 tab(s), 3 Refill(s), Pharmacy: [facility] ([facility]), 165.6, cm, 04/05/22 14:29:00 EDT, Height, kg, 04/05/22 14:29:00 EDT, Dosing Weight Start Date: 04/05/22 Stop Date: 03/31/23 Status: Ordered Problems Active Problems Problem Classification Problem Date Documented Date Episodic/Chronic Contraceptive and procreative management (7 sources) Oral contraception 04-05-2022 Episodic Deficiency and other anemia (11 sources) Anemia 03-22-2021 Episodic Disorders of lipid metabolism (11 sources) Hypertriglyceridemia 06-30-2020 Chronic Gastrointestinal hemorrhage (6 sources) Hematochezia 03-22-2021 Episodic Genitourinary symptoms and ill-defined conditions (2 sources) Unspecified symptoms and signs involving the genitourinary system; Translations: [Unspecified symptoms and signs involving the genitourinary system] Onset: 12-22-19 Episodic Inflammatory diseases of female pelvic organs (2 sources) Vaginitis 12-21-2022 Episodic Nutritional deficiencies (11 sources) Vitamin D deficiency 07-02-2019 Chronic Other non-traumatic joint disorders (1 source) Ankle joint pain; Translations: [Pain in right ankle and joints of right foot] Episodic Other skin disorders (11 sources) Acne 07-02-2019 Episodic Other skin disorders (11 sources) Hidradenitis suppurativa 07-02-2019 Episodi c Other upper respiratory disease (11 sources) Allergic rhinitis 07-02-2019 Chronic Pulmonary heart disease (7 sources) Saddle embolus of pulmonary artery; Translations: [Other pulmonary embolism with acute cor pulmonale] Onset: 08-02-192 Chronic Regional enteritis and ulcerative colitis (10 sources) Ulcerative colitis 07-27-2021 Chronic Spondylosis; intervertebral disc disorders; other back problems (5 sources) Backache 04-25-2022 Episodic Unclassified (20 sources) Patient encounter status 07-27-2021 Unclassified (7 sources) Injury of right ankle 04-05-2022 Past or Other Problems Problem Classification Problem Date Documented Da te Episodic/Chronic Phlebitis; thrombophlebitis and thromboembolism (7 sources) Bilateral deep vein thrombosis of lower extremities; Translations: [Acute embolism and thrombosis of right popliteal vein] Onset: 08-02-2022 04-25-2022 Episodic Results Test Name Value Interpretation Reference Range Facil ity Vital Signs Date Time Vital Sign Value Performing Clinician Chandler franklin 04-19-2022 04:19-0400 Diastolic blood pressure 73 mm[Hg] DR JASON ALAS DO [facility] 04-19-2022 04:19-0400 Heart rate 108 /min DR JASON ALAS DO [facility] 04-19-2022 04:19-0400 Mean blood pressure 83 mm[Hg] DR JASON ALAS DO [facility] 04-19-2022 04:19-0400 Respiratory rate 16 /min DR JASON LAAS DO [facility] 04-19-2022 04:19-0400 Systolic blood pressure 103 mm[Hg] DR JASON ALAS DO [facility] 04-19-2022 02:52-0400 Diastolic blood pressure 76 mm[Hg] DR JASON ALAS DO [facility] 04-19-2022 02:52-0400 Heart rate 105 /min DR JASON ALAS DO [facility] 04-19-2022 02:52-0400 Mean blood pressure 86 mm[Hg] DR JASON ALAS DO [facility] 04-19-2022 02:52-0400 Respiratory rate 22 /min DR JASON ALAS DO [facility] 04-19-2022 02:52-0400 Systolic blood pressure 106 mm[Hg] DR JASON ALAS DO [facility] 04-19-2022 01:50-0400 Diastolic blood pressure 84 mm[Hg] DR JASON ALAS DO [facility] 04-19-2022 01:50-0400 Heart rate 109 /min DR JASON ALAS DO [facility] 04-19-2022 01:50-0400 Mean blood pressure 94 mm[Hg] DR JASON ALAS DO [facility] 04-19-2022 01:50-0400 Respiratory rate 20 /min DR JASON ALAS DO [facility] 04-19-2022 01:50-0400 Systolic blood pressure 113 mm[Hg] DR JASON ALAS DO [facility] 04-18-2022 22:55-0400 Reason For Taking VItal Signs DR JASON ALAS DO [facility] 04-18-2022 20:36-0400 Body temperature 96.98 [degF] DR JASON ALAS DO [facility] 04-18-2022 20:36-0400 Body weight 127.[address] JASON ALAS DO [facility] 04-18-2022 20:36-0400 Heart rate 109 /min DR JASON ALAS DO [facility] 04-07-2022 13:15-0400 Body height 165.1 cm ABILIO GURJIT DPM [facility] 04-07-2022 13:15-0400 Body weight 127.8 kg ABILIO GURJIT DPM [facility] 04-07-2022 13:15-0400 Body weight 46.89 kg/m2 ABILIO GURJIT DPM [facility] 04-07-2022 13:15-0400 diastolic 80 mm[Hg] ABILIO CAGLE DPM [facility] 04-07-2022 13:15-0400 Heart rate 93 /min ABILIO PAARD DPM [facility] 04-07-2022 13:15-0400 Respiratory rate 20 /min ABILIO CAGLE DPM [facility] 04-07-2022 13:15-0400 systolic 118 mm[Hg] ABILIO CAGLE DPM [facility] Encounters Encounter Date Encounter Type Care Provider Facility Start: 03-17-2023 End: 03-18-2023 ambulatory DAWSON CARRIE PAPER CUP HANDLE MACHINE OPERATOR-STONE SANDBLASTER Facility:B Start: 03-17-2023 End: 03-17-2023 Patient encounter procedure DAWSON BUTLER PAPER CUP HANDLE MACHINE OPERATOR-STONE SANDBLASTER [facility] Start: 03-07-2023 ambulatory AGUS RICE MD [facility] ity:B Start: 12-21-2022 End: 12-26-2022 ambulatory CHAI CEJA MD Facility:B Start: 12-21-2022 End: 12-25-2022 Outreach Lab CHAI CEJA MD [facility] Start: 11-22-2022 End: 11-23-2022 ambulatory HARPER PIMENTEL MD Facility:B Start: 11-22-2022 End: 11-22-2022 Patient encounter procedure HARPER PIMENTEL MD [facility] Start: 10-04-2022 End: 10-05-2022 ambulatory HARPER PIMENTEL MD Facility:B Start: 10-04-2022 End: 10-04-2022 Patient encounter procedure HARPER PIMENTEL MD [facility] Start: 08-16-2022 End: 08-17-2022 ambulatory HARPER PIMENTEL MD Facility:B Start: 08-16-2022 End: 08-16-2022 Patient encounter procedure HARPER PIMENTEL MD [facility] Start: 08-02-2022 End: 08-07-2022 ambulatory KATY CHADWICK MD Facility:A Start: 05-05-2022 End: 06-20-2022 ambulatory ABILIO CAGLE DPM Facility:B Start: 04-23-2022 End: 05-08-2022 ambulatory DAWSON BUTLER APRN-STONE SANDBLASTER Facility:R Start: 04-19-2022 End: 04-22-2022 Evaluation and management of inpatient DR JAN FIGUEROA MD Facility:A Start: 04-18-2022 End: 04-19-2022 Emergency department patient visit DAWSON BUTLER APRN-STONE SANDBLASTER Facility:B Start: 04-18-2022 End: 04-19-2022 Emergency department patient visit DR JASON ALAS DO [facility] Start: 04-14-2022 End: 04-14-2022 ambulatory ABILIO CAGLE DPM Facility:B Start: 04-07-2022 End: 04-08-2022 ambulatory ABILIO CAGLE DPM Facility:B Start: 04-07-2022 End: 04-07-2022 Admission to establishment ABILIO CAGLE DPM [facility] Start: 03-29-2022 End: 03-30-2022 ambulatory DAWSON BUTLER APRN-STONE SANDBLASTER Facility:B Start: 03-29-2022 End: 03-29-2022 Patient encounter procedure DAWSON BUTLER APRN-STONE SANDBLASTER [facility] Start: 12-21-2021 End: 02-07-2022 Physical therapy management ABILIO CAGLE DPM [facility] Start: 07-27-2021 End: 07-31-2021 Outreach Lab DAWSON BUTLER APRN-STONE SANDBLASTER [facility] Start: 06-22-2021 End: 06-22-2021 Patient encounter procedure EL FRIEND DO [facility] Procedures Date Procedure Procedure Detail Performing Clinician Ankle/foot orthosis (physical object) DAWSON BUTLER APRN-STONE SANDBLASTER Immunizations Immunization Date Immunization Notes Care Provider [facility] 05-17-2022 influenza, injectabl e, quadrivalent, contains preservative; Translations: [Fluarix PF Quadrivalent ] HARPER PIMENTEL MD [facility] 06-30-2021 influenza virus vacc ine, unspecified formulation DAWSON BUTLER APRN-STONE SANDBLASTER [facility] 06-01-2021 SARS-CoV-2 (COVID-19 ) mRNA-1273 vaccine DAWSON BUTLER APRN-STONE SANDBLASTER [facility] 09-01-2020 SARS-CoV-2 (COVID-19 ) mRNA-1273 vaccine EL FRIEND DO [facility] 08-04-2020 SARS-CoV-2 (COVID-19 ) mRNA-1273 vaccine EL FRIEND DO [facility] 04-21-2020 influenza virus vacc ine, unspecified formulation EL FRIEND DO [facility] 01-05-2016 tetanus toxoid, redu volodymyr diphtheria toxoid, and acellular pertussis vaccine, adsorbed DAWSON BUTLER PAPER CUP HANDLE MACHINE OPERATOR-STONE SANDBLASTER [facility] 01-21-2009 meningococcal polysaccharide (groups A, C, Y and W-135) diphtheria toxoid conjugate vaccine (MCV4P) DAWSON BUTLER PAPER CUP HANDLE MACHINE OPERATOR-STONE SANDBLASTER [facility] 12-31-2001 measles/mumps/rubell a virus vaccine DAWSON BUTLER PAPER CUP HANDLE MACHINE OPERATOR-STONE SANDBLASTER [facility] 02-11-1996 varicella virus vaccine LORA BUTLER PAPER CUP HANDLE MACHINE OPERATOR-STONE SANDBLASTER [facility] 03-05-1995 hepatitis B pediatri c vaccine DAWSON BUTLER PAPER CUP HANDLE MACHINE OPERATOR-STONE SANDBLASTER [facility] 04-06-1994 hepatitis B pediatri c vaccine DAWSON BUTLER PAPER CUP HANDLE MACHINE OPERATOR-STONE SANDBLASTER [facility] 03-07-1994 hepatitis B pediatri c vaccine DAWSON BUTLER PAPER CUP HANDLE MACHINE OPERATOR-STONE SANDBLASTER [facility] 05-13-1992 measles/mumps/rubell a virus vaccine DAWSON BUTLER PAPER CUP HANDLE MACHINE OPERATOR-STONE SANDBLASTER [facility] Payers Date Payer Category Payer Unknown [id number] 1991 Unknown [id number] 2.16.8 [id number]. 1991 Unknown [id number] 2.16.8 [id number]. 1991 Unknown [id number] 2.16.8 [id number]. 1991 Unknown [id number] 2.16.8 [id number]. 1991 Unknown [id number] 2.16.8 [id number]. 1991 Unknown [id number] 2.16.8 [id number]. 1991 Unknown [id number] 2.16.8 [id number]. 1991 Unknown [id number] 2.16.8 [id number]. 1991 Unknown [id number] 2.16.8 [id number]. 1991 Unknown [id number] 2.16.8 40.1.874825.3.579.2. 1991 Unknown [id number] 2.16.8 40.1.825754.3.579.2. 1991 Unknown [id number] 2.16.8 [id number] 1991 Unknown [id number] 2.16.8 [id number] Social History Date Type Detail Facility Start: 06-30-2020 Never smoked t obacco (finding) [facility] Sex Assigned At Female [facility] Functional Status Date Assessment Result Facility 04-19-2022 Functional Status Standard Safet y ID band on, Call device within reach, Bed in low position [facility] 04-19-2022 Functional Status [facility] 04-18-2022 Functional Status [facility] 04-07-2022 Functional Status Sensory Deficits None A [facility] Mental Status Date Assessment Result Facility 04-18-2022 Mental Status Orientation Oriented x 4 [facility] 04-18-2022 Mental Status [facility] Clinical Notes 07-27-2021 to 12-22-2022 LaboratoryRadiology Note Date & Type Note Facility 12-22-2022 Note . MICRO - Microbiology PROCEDURE: Urine Culture [*1] SOURCE: Urine, Clean Catch BODY SITE: COLLECTED DATE/TIME: 12/21/2022 10:11 EDT RECEIVED DATE/TIME: 12/21/2022 18:58 EDT START DATE/TIME: 12/21/2022 18:59 EDT FREE TEXT SOURCE: FINAL REPORTS Final Report [] Verified Date/Time/Personnel: 12/22/2022 14:21 EDT 10,000 - 50,000 cfu/ml Multiple bacterial morphotypes present. Probable Contamination. Suggest recollection if clinically indicated. Performing Locations *1: This test was performed at: [facility], [address] [place] [address], [id number] , [facility] ([place]) 08-16-2022 Evaluation + Plan note Diagnostic Tests PendingMIUT Lab Send out (Blood Specimens) 08/16/[address] [facility] 04-18-2022 Note ORIGINAL EXAMINATION: CTA OF THE CHEST 04/18/2022 10:51 pm TECHNIQUE: CTA of the chest was performed after the administration of intravenous contrast. Multiplanar reformatted images are provided for review. MIP images are provided for review. Automated exposure control, iterative reconstruction, and/or weight based adjustment of the mA/kV was utilized to reduce the radiation dose to as low as reasonably achievable. COMPARISON: None. HISTORY: ORDERING SYSTEM PROVIDED HISTORY: Recent facet surgery. Reason for Exam: chest pain; suspect PE FINDINGS: Pulmonary Arteries: There is adequate contrast opacification of the pulmonary arteries. There is a saddle embolus within increased RV to LV ratio of 1.4 suggesting right ventricular strain. Emboli extend throughout the pulmonary arterial vasculature, most prominently to the lower lobes. The main pulmonary artery is nondistended. Mediastinum: No cardiomegaly or pericardial effusion. The thoracic aorta is normal in course and caliber. No mediastinal or hilar adenopathy. The esophagus is unremarkable. Lungs/pleura: The trachea and mainstem bronchi are patent. No focal consolidation, pleural effusion, or pneumothorax. No suspicious pulmonary nodule. Upper Abdomen: No acute process within the included upper abdomen. Soft Tissues/Bones: No axillary or supraclavicular adenopathy. Unremarkable visible thyroid. IMPRESSION: Saddle pulmonary embolism with evidence of right heart strain. Results called by Dr. Rekha Manzo to Dr. Jason Alas at 23:00. I have personally reviewed the images of this examination and agree with the resident's findings and interpretation. Interpreted by: Abdiaziz Kaiser MD Preliminary Report By: Rekha Manzo Electronically signed By Abdiaziz Kaiser MD Dictated Date: 04/18/2022 10:55:49 PM Prelim Date: 04/18/2022 11:01:33 PM Sign Date: 04/18/2022 11:45:41 PM Ordering Provider: JASON ALAS [facility] 04-18-2022 Note ORIGINAL EXAMINATION: CTA OF THE CHEST 04/18/2022 10:51 pm TECHNIQUE: CTA of the chest was performed after the administration of intravenous contrast. Multiplanar reformatted images are provided for review. MIP images are provided for review. Automated exposure control, iterative reconstruction, and/or weight based adjustment of the mA/kV was utilized to reduce the radiation dose to as low as reasonably achievable. COMPARISON: None. HISTORY: ORDERING SYSTEM PROVIDED HISTORY: Recent facet surgery. Reason for Exam: chest pain; suspect PE FINDINGS: Pulmonary Arteries: There is adequate contrast opacification of the pulmonary arteries. There is a saddle embolus within increased RV to LV ratio of 1.4 suggesting right ventricular strain. Emboli extend throughout the pulmonary arterial vasculature, most prominently to the lower lobes. The main pulmonary artery is nondistended. Mediastinum: No cardiomegaly or pericardial effusion. The thoracic aorta is normal in course and caliber. No mediastinal or hilar adenopathy. The esophagus is unremarkable. Lungs/pleura: The trachea and mainstem bronchi are patent. No focal consolidation, pleural effusion, or pneumothorax. No suspicious pulmonary nodule. Upper Abdomen: No acute process within the included upper abdomen. Soft Tissues/Bones: No axillary or supraclavicular adenopathy. Unremarkable visible thyroid. IMPRESSION: Saddle pulmonary embolism with evidence of right heart strain. Results called by Dr. Rekha Manzo to Dr. Jason Alas at 23:00. I have personally reviewed the images of this examination and agree with the resident's findings and interpretation. Interpreted by: Abdiaziz Kaiser MD Preliminary Report By: Rekha Manzo Electronically signed By Abdiaziz Kaiser MD Dictated Date: 04/18/2022 10:55:49 PM Prelim Date: 04/18/2022 11:01:33 PM Sign Date: 04/18/2022 11:45:41 PM Ordering Provider: JASON ALAS [facility] 04-18-2022 Hospital Discharge instructions Follow Up Care 04/18/2022 20:35:13 With:DAWSON BUTLER PAPER CUP HANDLE MACHINE OPERATOR-[facility] Address: [address] [facility] [place] [address]- [phone] When:2-[address] [facility] 04-18-2022 Note ORIGINAL EXAMINATION: ONE XRAY VIEW OF THE CHEST04/18/2022 9:48 pm CHEST ONE VIEW AP/PA COMPARISON: None HISTORY: ORDERING SYSTEM PROVIDED HISTORY: Reason for Exam: chest pain FINDINGS: The cardiomediastinal contours are normal. There is no focal consolidation, pleural effusion, or pneumothorax. No acute osseous abnormality. IMPRESSION: No acute radiographic findings. Interpreted by: Abdiaziz Kaiser MD Preliminary Report By: Abdiaziz Kaiser MD Electronically signed By Abdiaziz Kaiser MD Dictated Date: 04/18/2022 10:11:39 PM Prelim Date: 04/18/2022 10:11:55 PM Sign Date: 04/18/2022 10:11:55 PM Ordering Provider: [facility] 04-18-2022 Note ORIGINAL EXAMINATION: ONE XRAY VIEW OF THE CHEST04/18/2022 9:48 pm CHEST ONE VIEW AP/PA COMPARISON: None HISTORY: ORDERING SYSTEM PROVIDED HISTORY: Reason for Exam: chest pain FINDINGS: The cardiomediastinal contours are normal. There is no focal consolidation, pleural effusion, or pneumothorax. No acute osseous abnormality. IMPRESSION: No acute radiographic findings. Interpreted by: Abdiaziz Kaiser MD Preliminary Report By: Abdiaziz Kaiser MD Electronically signed By Abdiaziz Kaiser MD Dictated Date: 04/18/2022 10:11:39 PM Prelim Date: 04/18/2022 10:11:55 PM Sign Date: 04/18/2022 10:11:55 PM Ordering Provider: [facility] 04-18-2022 Evaluation + Plan note Future Appointments Diagnostic Tests PendingProthrombin Time - Panel 04/18/22APTT Panel 04/18/22APTT Panel 04/18/22Prothrombin Time - Panel 04/18/22APTT Panel 04/19/[address] [facility] 07-27-2021 Evaluation + Plan note Future Scheduled TestsPathology Pediatric Registered Nurse Request 07/27/[address] [facility] Evaluation + Plan note Future Appointments Appointment Date:07/27/2021 01:00:00 PM Scheduled Provider:DAWSON BUTLER Location:[facility] Appointment Type:PC Wellness Annual [facility] Evaluation + Plan note Future Appointments Appointment Date:04/05/2022 02:30:00 PM Scheduled Provider:DAWSON BUTLER Location:[facility] Appointment Type:PC OV Pre Op [facility] Evaluation + Plan note Future Appointments [facility] Evaluation + Plan note Future Appointments Appointment Date:04/04/2023 02:30:00 PM Scheduled Provider:DAWSON BUTLER Location:[facility] Appointment Type:PC OV Appointment Date:06/06/2023 01:30:00 PM Scheduled Provider: Location:[facility] Appointment Type:US Pelvis Non-OB W/Transvaginal Appointment Date:06/13/2023 01:00:00 PM Scheduled Provider:AGUS RICE MD Location:[facility] Appointment Type:WH OV Future Scheduled TestsUS Pelvis Non-OB W/Transvaginal 06/06/[address] [facility] Hospital course Narrative No data available for this section [facility] Hospital Discharge instructions No data available for this section [facility] Note JASON ALAS DO: SIGN, VERIFY Event Display: EKG [ED AOH] - CV Authored Date: [facility] Progress note No data available for this section [facility] Summary Purpose Family History No Family History Records Found No data available for this section No Family History Records Found Advance Directives No Advanced Directives Records FoundNo Advanced Directives Records Found Additional Source Comments INFORMATION SOURCE (unrecogn ized section and content) DATE CREATED AUTHOR AUTHOR'S TRACEY ATION 03/18/2023 [facility] ([place]) Care Team (unrecognized sect ion and content) Care Team Personnel Name: DAWSON BUTLER Position: P4 Advanced Practice Nurse Med Service: Active Provider Member Role: Primary Care Physician Address: Address: [address] [place] [address]- Care Team Related Persons Name: LNAA SANCHEZ Care Team Personnel Name: DAWSON BUTLER PAPER CUP HANDLE MACHINE OPERATOR-STONE SANDBLASTER Position: P4 Advanced Practice Nurse Med Service: Active Provider Member Role: Primary Care Physician Address: Address: [address] [place] [address]- Care Team Related Persons Name: LANA SANCHEZ Care Team Personnel Name: DAWSON BUTLER PAPER CUP HANDLE MACHINE OPERATOR-STONE SANDBLASTER Position: P4 Advanced Practice Nurse Med Service: Active Provider Member Role: Primary Care Physician Address: Address: [address] [place] [address]- Care Team Related Persons Name: LANA SANCHEZ Care Team Personnel Name: DAWSON BUTLER PAPER CUP HANDLE MACHINE OPERATOR-STONE SANDBLASTER Position: P4 Advanced Practice Nurse Med Service: Active Provider Member Role: Primary Care Physician Address: Address: [address] [place] [address]- Care Team Related Persons Name: LANA SANCHEZ Care Team Personnel Name: DAWSON BUTLER PAPER CUP HANDLE MACHINE OPERATOR-STONE SANDBLASTER Position: P4 Advanced Practice Nurse Member Role: Primary Care Physician Address: Address: [address] [place] [address]- Care Team Related Persons Name: LANA SANCHEZ Patient Care team informatio n (unrecognized section and content) Care Team Personnel Name: DAWSON BUTLER PAPER CUP HANDLE MACHINE OPERATOR-STONE SANDBLASTER Position: P4 Advanced Director Of Human Resources Member Role: Primary Care Physician Address: Address: [address] [place] [address]- Care Team Related Persons Name: LANA SANCHEZ Care Team Personnel Name: DAWSON BUTLER PAPER CUP HANDLE MACHINE OPERATOR-STONE SANDBLASTER Position: P4 Advanced Director Of Human Resources Member Role: Primary Care Physician Address: Address: [address] [place] [address]- Name: Brie Lawrence Position: Quality Review Member Role: Director Of Medicare Care Team Related Persons Name: LANA SANCHEZ Care Team Personnel Name: DAWSON BUTLER PAPER CUP HANDLE MACHINE OPERATOR-STONE SANDBLASTER Position: P4 Advanced Director Of Human Resources Member Role: Primary Care Physician Address: Address: [address] Name: Brie Lawrence Position: Quality Review Member Role: Director Of Medicare Care Team Related Persons Name: LANA SANCHEZ Care Team Personnel Name: DAWSON BUTLER HELENE-STONE SANDBLASTER Position: Advanced Director Of Human Resources Member Role: Primary Care Physician Address: Address: [address] Name: Brie Lawrence Position: Quality Review Member Role: Director Of Medicare Care Team Related Persons Name: LANA SANCHEZ FOR RECORDS PERTAINING TO PATIENTS WHO ARE OR HAVE BEEN ENROLLED IN A CHEMICAL DEPENDENCY/SUBSTANCEABUSE PROGRAM, SOME INFORMATION MAY BE OMITTED. This clinical summary was aggregated from multiple sources. Caution should be exercised in using it in the provision of clinical care. This summary normalizes information from multiple sources, and as a consequence, information in this document may materially change the coding, format and clinical context of patient data. In addition, data may be omitted in some cases. CLINICAL DECISIONS SHOULD BE BASED ON THE PRIMARY CLINICAL RECORDS. [facility]. provides no warranty or guarantee of the accuracy or completeness of information in this document.
[2023-07-30 06:07] VITALS: BP 126/78; PULSE 91; RESP 17; TEMP 36.6; O2SAT 100; BMI 49.8
[2023-07-30] MEDS: Lactated Ringers 1,000 ML 15 ML IV (06:10)
[2023-07-30 06:16] LABS: Internal QC Validated? YES +Cl - CLEAR BKGD; Pregnancy, Urine Negative Negative
--- NOTE | 2023-07-30 06:40 | PCM.HP.BLA ---
History and Physical Date of Admission: 07/30/23 33 F who presents to the office today for *BGI established .08.12 with referral from PCP for evaluation of blood in her stools with years of bloating, cramping and intermittent diarrhea. PCP performed stool studies which were negative for C.Difficile, but fecal calprotectin was >3000.0. Colonoscopy 04.27.21 finding moderately active pancolitis ulcerative colitis, Chery Score 2; one 5mm pseudopolyp removed; congested mucosa in distal ileum. She was Start vancomycin and budesonide. OV 05.11. with continued diarrhea with blood, urgency, frequency and cramping. Start methotrexate. OV .08.12 with improvement of urgency and consistency of stool though continued blood. Would like to pursue Humira in the new year. Continue methotrexate and budesonide until Humira start. OV .. with continued improvement though liquid stools continue. Humira process initiated. Continue methotrexate and budesonide until Humira start. Humira started .. OV 2.16. with continued improvement with resolution of blood and fecal incontinence; continued gas and abdominal cramping. OV 10.19. with budesonide tapering and intermittent symptoms of gas, watery BM, abdominal cramping, tenesmus. Continue Humira, start dicyclomine. OV 6.. with improved symptoms with increase in Humira frequency; added Metamucil and this has been helpful also. Did experience increased stress since . OV 03.22. without symptoms r/t UC. Continue weekly Humira Surgery for ankle ligament repair with complication of massive saddle PE requiring ICU hospitalization with heparin; discharged 04.22.22 with outpatient Eliquis. No flare of UC symptoms during this time. OV 12. with continued UC symptom resolution. OV 3.. Reports she is doing well without GI manifestations of her UC. Also without rash, vision changes or joint pain. Contact 03.07.23 symptoms are well controlled. OV 11 reports she is doing very well at this time without active symptoms. Feels she is relearning her BM cues; she is having 1-2 BM with normal/formed consistency each day and feels some mild bloating/flatulence, feels she is having complete evacuation but perhaps smaller quantity. Since she has had a lot of health upheaval: gynecology interventions of metformin for weight loss and IUD placements which caused abdominal pain/cramping and start of mental health care to address anxiety related to life-threatening health issues in 2021. She would like to address weight in the future but currently wants to focus on mental health. ? CRP/ESR? Calpro/Lacto? Serum/ab 09.14.21 --/--? 62/-? --/-- 11.02.21 --/--? -/-? 5.6/neg? Increase frequency to weekly for two months 01.04.22 10.80/20? -/-? 7.7/neg? Continue weekly Humira 03.22.22 17.20/33? -/-? 9.8/neg? Ligament repair 07.05.22 4.63/21? -/-? --/-- 12.30.22 662/23? --/--? 8.6/neg? CBC, CMP, LFT, TB without pertinent abnormality. Reduced Humira to every other week. 02.28.23 --/--? --/--? 4.8/neg ROS Const Constitutional: No fatigue ENT ENT: No difficulty swallowing Gastro GI: No abdominal pain, belching, bloating, change in bowel habits, change in stool character, coffee ground emesis, constipation, cramping, diarrhea, heartburn, difficulty swallowing, feeling full early, excessive flatus, incontinent of stools, Vomiting blood/hematemesis, Blood in stool, loose stools, Black,tarry stools, nausea/dyspepsia, pain with swallowing, vomiting or other Musc Musculoskeletal: No joint pain Skin Skin: No yellowing of the eye or itchy eyes Psych Psychiatric: Positive for anxiety and No depression Endo Endocrine: No fatigue Aller/Imm Allergy/Immunologic: No itchy eyes Scot/Lymp Hematologic/Lymphatic: Positive for easy bruising; No easy bleeding Exam Const General: cooperative and comfortable Nutritional Appearance: average body habitus and well nourished [facility] Head: normal to inspection Ears: hearing grossly normal bilaterally Nose: external nose normal Face and sinus: normal facial exam Mouth: oral mucosae normal Throat: posterior oropharynx normal Eyes General: appearance normal, both eyes and all related structures Neck Neck: normal visual inspection Chest Chest palpation & inspection: normal inspection of the chest and normal palpation of entire chest wall Resp Effort & Inspection: normal respiratory effort Auscultation: Bilateral: Clear to Auscultation Cardio Palpation: normal PMI Rate: regular rate Rhythm: regular rhythm GI Inspection: normal to inspection Auscultation: normal bowel sounds Percussion: normal to percussion Palpation: no hepatosplenomegaly Skin General: no rashes or lesions noted Neuro General: patient alert Extrem General: normal to inspection Psych Affect: normal affect Quality Reporting Tobacco Screening ([facility] 138) Smoking Status: Never smoker Assessment and Plan Assessment and Plan (1) Ulcerative colitis with rectal bleeding: Status: Chronic Qualifiers: Ulcerative colitis location: ulcerative pancolitis Qualified Code(s): K51.011 - Ulcerative (chronic) pancolitis with rectal bleeding Plan: She is doing very well.? Subjectively she is having 1 formed bowel movement per day without any tenesmus, rectal bleeding or constipation.? She underwent ligament repair of her right foot. Unfortunately she developed a DVT which precipitated the area saddle embolus and the need for vascular surgery to remove the saddle embolus. She is off of control and on Eliquis 5 mg twice a day for the next 8 months. .? ? We will get adalimumab levels along with antibody levels, and CRP levels.? I suspect that her CRP levels were elevated at 10 secondary to chronic inflammation of her right foot.? All questions were answered and she will follow-up in 3 months. ? ? ? Orders: Orders: Orders Erythrocyte Sed Rate Today K51.911 - Ulcerative colitis, unspecified with rectal bleeding CRP Today K51.911 - Ulcerative colitis, unspecified with rectal bleeding Miscellaneous Lab Procedure Today K51.911 - Ulcerative colitis, unspecified with rectal bleeding I have examined the patient and the H&P has been reviewed. There are no clinical changes since date of exam.
[2023-07-30 07:04] VITALS: BP 125/80; BP 126/78; PULSE 83; RESP 18; TEMP 36.5; O2SAT 96
--- NOTE | 2023-07-30 07:04 | OP.CCLET_ITS ---
07/30/2023 Heidy Hopkins Re : Colonoscopy procedure for Megan Hopkins This procedure was performed on Sunday, July 30, 2023. My impressions and recommendations are as follows: Impressions : - Mild (Chery Score 1) ulcerative colitis, improved since the last examination. Biopsied. Recommendations : - Discharge patient to home. - Resume previous diet. - Continue present medications. - Await pathology results. - Repeat colonoscopy in 1 year for surveillance. My findings are described in the full procedure note, which is enclosed. If I can be of further assistance, please feel free to contact me at . Sincerely, Adalberto Peterson, 07/30/2023 7:02:59 AM This report has been signed electronically.
--- NOTE | 2023-07-30 07:04 | OP.COLON_ITS ---
Patient Name: Megan Meza Procedure Date: 07/30/2023 6:19 AM Date of : 1990 Age: 33 Procedure: Colonoscopy Indications: Follow-up of left-sided chronic ulcerative colitis, Disease activity assessment of left-sided chronic ulcerative colitis, Assess therapeutic response to therapy of left-sided chronic ulcerative colitis Providers: Adalberto Peterson DO Medicines: Monitored Anesthesia Care Patient Profile: This is a 33 year old female. Refer to note in patient chart for documentation of history and physical. Last Colonoscopy: 1 year ago. Complications: No immediate complications. Procedure: Pre-Anesthesia Assessment: - Prior to the procedure, a History and Physical was performed, and patient medications and allergies were reviewed. The patient is competent. The risks and benefits of the procedure and the sedation options and risks were discussed with the patient. All questions were answered and informed consent was obtained. Patient identification and proposed procedure were verified by the physician in the pre-procedure area. Mental Status Examination: alert and oriented. Airway Examination: normal oropharyngeal airway and neck mobility. Respiratory Examination: clear to auscultation. CV Examination: normal. Prophylactic Antibiotics: The patient does not require prophylactic antibiotics. Prior Anticoagulants: The patient has taken no anticoagulant or antiplatelet agents. ASA Grade Assessment: II - A patient with mild systemic disease. After reviewing the risks and benefits, the patient was deemed in satisfactory condition to undergo the procedure. The anesthesia plan was to use monitored anesthesia care (MAC). Immediately prior to administration of medications, the patient was re-assessed for adequacy to receive sedatives. The heart rate, respiratory rate, oxygen saturations, blood pressure, adequacy of pulmonary ventilation, and response to care were monitored throughout the procedure. The physical status of the patient was re-assessed after the procedure. After I obtained informed consent, the scope was passed under direct vision. Throughout the procedure, the patient's blood pressure, pulse, and oxygen saturations were monitored continuously. The colonoscope was introduced through the anus and advanced to the cecum, identified by appendiceal orifice and ileocecal valve. The colonoscopy was performed without difficulty. The patient tolerated the procedure well. The quality of the bowel preparation was adequate. The ileocecal valve, appendiceal orifice, and rectum were photographed. Scope In: 6:44:57 AM Scope Withdrawal Time 0 hours 8 minutes 21 seconds Scope Out: 6:55:33 AM Total Procedure Duration Time 0 hours 10 minutes 36 seconds Findings: The perianal and digital rectal examinations were normal. Inflammation was found in a continuous and circumferential pattern from the rectum to the sigmoid colon. This was graded as Chery Score 1 (mild, with erythema, decreased vascular pattern, mild friability), and when compared to the previous examination, the findings are improved. Biopsies were taken with a cold forceps for histology. Verification of patient identification for the specimen was done. Estimated blood loss was minimal. Impression: - Mild (Chery Score 1) ulcerative colitis, improved since the last examination. Biopsied. Recommendation: - Discharge patient to home. - Resume previous diet. - Continue present medications. - Await pathology results. - Repeat colonoscopy in 1 year for surveillance. Procedure Code(s): --- Professional --- 68552, Colonoscopy, flexible; with biopsy, single or multiple CPT copyright 2021 [employer]. All rights reserved. The codes documented in this report are preliminary and upon checkerer hand review may be revised to meet current compliance requirements. Adalberto Peterson DO 07/30/2023 7:02:59 AM This report has been signed electronically. Number of Addenda: 0 Note Initiated On: 07/30/2023 6:19 AM
[2023-07-30 07:05] VITALS: BP 112/77; BP 126/78; PULSE 76; RESP 14; O2SAT 96
[2023-07-30 07:10] VITALS: BP 112/73; BP 126/78; PULSE 68; RESP 18; O2SAT 100
[2023-07-30 07:13] VITALS: BP 119/71; BP 126/78; PULSE 91; RESP 18; TEMP 36.2; O2SAT 100
[2023-07-30 07:25] VITALS: BP 126/78
== END 2023-07-30 08:32 | disposition home or self-care (01) ==
LOC: EN 05:18 → AC 05:22
PROVIDERS: Anesthesiology; PCP Nurse Practitioner Family; Referring Provider Nurse Practitioner Family; Visit Provider Internal Medicine Gastroenterology
PROC: 0DJD8ZZ Inspection of Lower Intestinal Tract, Via Natural or Artificial Opening Endoscopic (ICD-10-PCS; CPT 45378; principal; 2023-07-30 06:25)
DX: K51.011 Ulcerative (chronic) pancolitis with rectal bleeding (principal); L73.2 Hidradenitis suppurativa; E55.0 Rickets, active; Z79.899 Other long term (current) drug therapy
CPT/HCPCS: 45380; 81025; 88305; J7120; J2405

== ENCOUNTER 2023-12-26 13:13 | Outpatient (CLI) | payer OTHER, SELFPAY ==
[2023-12-26 13:30] VITALS: BP 129/68; PULSE 94; RESP 16; TEMP 35.8; O2SAT 97; BMI 48.2
[2023-12-26] MEDS: 0.9% NaCl IVPB Med Flush (250 mL) 15 ML IV (13:45)
[2023-12-26] MEDS: Ustekinumab 520 MG in 0.9% Normal Saline (250mL Bag) 146 ML 250 MG IV (13:46)
[2023-12-26 15:13] VITALS: BP 112/76; PULSE 67; RESP 16; TEMP 35.9; O2SAT 99
== END 2023-12-26 23:59 | disposition home or self-care (01) ==
LOC: MEDOUTP 13:14
PROVIDERS: Referring Provider Internal Medicine Gastroenterology; Visit Provider Internal Medicine Gastroenterology
DX: K51.90 Ulcerative colitis, unspecified, without complications (principal)
CPT/HCPCS: 96365; J7050; A4216; J3358

== ENCOUNTER → 2024-08-06 | Outpatient (CLI) | payer OTHER, SELFPAY ==
[2024-08-06 16:20] LABS: Absolute Lymphocyte Count 2.88 X10^3/uL (0.83-4.51); Absolute Neutrophil Count 7.9 X10^3/uL (2.0-7.7); Basophil# 0.07 X10^3/uL; Basophil% 0.6 % (0-1); Eosinophil# 0.21 X10^3/uL; Eosinophils% 1.7 % (0-5); Hematocrit 39.7 % (37-47); Lymphocyte # 2.88 X10^3/ul (0.83-4.51); Lymphocyte % 23.5 % (19-41); Mean Corp Hgb Conc 32.7 g/dL (32-36); Mean Corpuscular Hgb 30.2 pg (27.0-32.0); Mean Corpuscular Volume 92.1 fL (81-99); Mean Platelet Vol. 11.1 fl (6.2-12.0); Monocyte# 1.11 X10^3/uL; Monocyte% 9.1 % (0-10); NRBC Flagged by Analyzer 0 % (0-5); Neutrophil # 7.93 X10^3/uL (2.7-7.7); Neutrophil % 64.6 % (47-70); Platelet Count 336 K/mm3 (150-450); RBC Distribution Width CV 12.2 % (11.6-14.6); RBC Distribution Width SD 41.5 fl (35.1-43.9); Red Blood Count 4.31 M/mm3 (4.2-5.4); White Blood Count 12.3 K/mm3 (4.4-11.0)
[2024-08-06 16:29] LABS: Erythrocyte Sedimentation Rate 36 mm/hr (0-30)
[2024-08-06 17:05] LABS: ALB/GLOB Ratio 0.8 RATIO (0.9-2.4); AST(SGOT) 15 U/L (15-37); Alanine Aminotransfer ALT/SGPT 30 U/L (13-56); Albumin, Serum 3.7 g/dL (3.2-5.0); Alkaline Phosphatase 79 U/L (45-117); Anion Gap 4 (5-15); BUN 9 mg/dL (7-18); BUN/Creat Ratio 11.1 RATIO (10-20); Calcium,Total 9.6 mg/dL (8.5-10.1); Chloride 104 mmol/L (98-107); Creatinine, Serum 0.81 mg/dL (0.55-1.02); EST Glomerular Filtration Rate 86 mL/min (>60); Est Glom Filt Rate - Afr Amer 105 mL/min (>60); Globulin 4.7 g/dL (2.2-4.2); Glucose 80 mg/dL (74-106); Potassium 3.5 mmol/L (3.5-5.1); Protein, Total 8.4 g/dL (6.4-8.2); Sodium Level 138 mmol/L (136-145)
== END | disposition home or self-care (01) ==
PROVIDERS: PCP Nurse Practitioner Family; Referring Provider Internal Medicine Gastroenterology; Visit Provider Internal Medicine Gastroenterology
DX: K51.011 Ulcerative (chronic) pancolitis with rectal bleeding (principal)
CPT/HCPCS: 36415; 80053; 85025; 85652; 86140

== ENCOUNTER → 2024-09-03 | Outpatient (CLI) | payer OTHER, SELFPAY ==
[2024-09-07 02:06] LABS: Calprotectin, Stool 121 ug/g (0-120)
== END | disposition home or self-care (01) ==
LOC: LABSPEC 12:41
PROVIDERS: PCP Nurse Practitioner Family; Referring Provider Internal Medicine Gastroenterology; Visit Provider Internal Medicine Gastroenterology
DX: K51.011 Ulcerative (chronic) pancolitis with rectal bleeding (principal)
CPT/HCPCS: 83630; 83993; 87177; 87209; 87493; 87506

== ENCOUNTER → 2024-12-17 | Outpatient (CLI) | payer OTHER, SELFPAY ==
[2024-12-17 17:13] LABS: Absolute Lymphocyte Count 3.03 X10^3/uL (0.83-4.51); Absolute Neutrophil Count 9.7 X10^3/uL (2.0-7.7); Basophil# 0.08 X10^3/uL; Basophil% 0.6 % (0-1); Eosinophil# 0.11 X10^3/uL; Eosinophils% 0.8 % (0-5); Hematocrit 38.7 % (37-47); Hemoglobin 13.1 g/dL (12.0-15.0); Lymphocyte # 3.03 X10^3/ul (0.83-4.51); Lymphocyte % 21.4 % (19-41); Mean Corp Hgb Conc 33.9 g/dL (32-36); Mean Corpuscular Hgb 30.6 pg (27.0-32.0); Mean Corpuscular Volume 90.4 fL (81-99); Mean Platelet Vol. 11.3 fl (6.2-12.0); Monocyte# 1.22 X10^3/uL; Monocyte% 8.6 % (0-10); NRBC Flagged by Analyzer 0 % (0-5); Neutrophil # 9.68 X10^3/uL (2.7-7.7); Neutrophil % 68.1 % (47-70); Platelet Count 334 K/mm3 (150-450); RBC Distribution Width CV 12.6 % (11.6-14.6); RBC Distribution Width SD 40.9 fl (35.1-43.9); Red Blood Count 4.28 M/mm3 (4.2-5.4); White Blood Count 14.2 K/mm3 (4.4-11.0)
[2024-12-17 17:53] LABS: ALB/GLOB Ratio 1.1 RATIO (0.9-2.4); AST(SGOT) 21 U/L (<=31); Alanine Aminotransfer ALT/SGPT 27 U/L (<=34); Albumin, Serum 4.3 g/dL (3.5-5.0); Alkaline Phosphatase 78 U/L (35-104); Anion Gap 11 (5-15); BUN 8 mg/dL (4-19); BUN/Creat Ratio 12.1 RATIO (10-20); CRP 8.87 mg/L (0.0-3.0); Calcium,Total 9.8 mg/dL (7.6-11.0); Carbon Dioxide 24.1 mmol/L (21.0-32.0); Chloride 101 mmol/L (98-108); Creatinine, Serum 0.64 mg/dL (0.70-1.20); EST Glomerular Filtration Rate 119 (>60); Globulin 3.8 g/dL (2.2-4.2); Glucose 83 mg/dL (70-99); Potassium 3.8 mmol/L (3.3-5.1); Protein, Total 8.1 g/dL (5.9-8.4); Sodium Level 136 mmol/L (133-145); Total Bilirubin 0.23 mg/dL (0.00-1.30)
[2024-12-17 18:02] LABS: Hepatitis B Surface Antibody REAC
[2024-12-19 10:08] LABS: QNTFERON TB Mitogen Value > 10.00 IU/mL (.); QNTFERON TB Nil Value 0.05 IU/mL (.); QNTFERON TB2+ Ag Value 0.18 IU/mL (.); QNTIFERON TB Positive Criteria Negative (Negative)
== END | disposition home or self-care (01) ==
LOC: LAB 16:19
PROVIDERS: PCP Nurse Practitioner Family; Referring Provider Nurse Practitioner Acute Care; Visit Provider Nurse Practitioner Acute Care
DX: K51.90 Ulcerative colitis, unspecified, without complications (principal)
CPT/HCPCS: 36415; 80053; 85025; 86140; 86480; 86706

== ENCOUNTER → 2025-01-14 | Outpatient (CLI) | payer OTHER, SELFPAY ==
[2025-01-16 08:09] LABS: Calprotectin, Stool 924 ug/g (0-120)
== END | disposition home or self-care (01) ==
LOC: LABSPEC 07:33
PROVIDERS: PCP Nurse Practitioner Family; Referring Provider Nurse Practitioner Acute Care; Visit Provider Nurse Practitioner Acute Care
DX: K51.90 Ulcerative colitis, unspecified, without complications (principal)
CPT/HCPCS: 83993

== ENCOUNTER 2025-02-20 05:42 | Day surgery (SDC) | payer OTHER, SELFPAY ==
[2025-02-20] VITALS (8 sets, daily range): BP systolic 84–123; BP diastolic 58–81; PULSE 63–88; RESP 16–18; TEMP 36.2–36.9; O2SAT 94–100; BMI 47.8
--- OUTSIDE RECORDS SUMMARY | 2025-02-20 05:45 | XMS RPT_ITS | CCD ---
[facility] Organization [facility] Providers Care Superintendent Maintenance Name Role Phone SANDEEP NARAYAN-THIRD HELPER, HEIDY Primary Care Physician Sandeep STUMMEL SELECTOR, STUMMEL SELECTOR-C Heidy Primary Care Provider [phone] Lorson STUMMEL SELECTOR, STUMMEL SELECTOR-C Heidy Referring Provider [phone] Dr. El Peterson Attending Provider [phone] Trudi HARO, STUMMEL SELECTOR-C Anny Muhammad Attending Provider [phone] Sandeep STUMMEL SELECTOR, STUMMEL SELECTOR-C Heidy Primary Care Provider [phone] Lorson STUMMEL SELECTOR, STUMMEL SELECTOR-C Heidy Referring Provider [phone] Dr. El Peterson Attending Provider [phone] Sandeep STUMMEL SELECTOR, STUMMEL SELECTOR-C Heidy Primary Care Provider [phone] Lorson STUMMEL SELECTOR, STUMMEL SELECTOR-C Heidy Referring Provider [phone] Trudi HARO, STUMMEL SELECTOR-C Anny Muhammad Attending Provider [phone] HEIDY MARTIN Primary Care Physician Lorson STUMMEL SELECTOR, STUMMEL SELECTOR-C Heidy Primary Care Provider [phone] Lorson STUMMEL SELECTOR, STUMMEL SELECTOR-C Heidy Referring Provider [phone] Lorson STUMMEL SELECTOR, STUMMEL SELECTOR-C Heidy Primary Care Provider Lorson STUMMEL SELECTOR, STUMMEL SELECTOR-C Heidy Referring Provider [phone] Dr. El Peterson Attending Provider Sandeep STUMMEL SELECTOR, STUMMEL SELECTOR-C Heidy Primary Care Provider [phone] Lorson STUMMEL SELECTOR, STUMMEL SELECTOR-C Heidy Referring Provider [phone] Dr. El Peterson Attending Provider Lorson STUMMEL SELECTOR, STUMMEL SELECTOR-C [place] Primary Care Provider [phone] Lorson STUMMEL SELECTOR, STUMMEL SELECTOR-C [place] Referring Provider [phone] Dr. El Peterson Attending Provider [phone] Lorson STUMMEL SELECTOR, STUMMEL SELECTOR-C [place] Primary Care Provider [phone] Lorson STUMMEL SELECTOR, STUMMEL SELECTOR-C [place] Referring Provider [phone] Dr. El Peterson Attending Provider [phone] Dr. El Peterson Other Provider [phone] EL PETERSON DO Attending [facility]available [facility] Unavailable FRIEND EL GAMBINO Attending Unavailable [facility] Care Unavailable ANABELLA DANGELO Attending Unabrandeni [facility] Care Unavailable PROVIDER, UNKNOWN Attending Unavailable LORSON, CAPULIN Primary Care Unavailable LORSON, CAPULIN Primary Care Unavailable VERENA RODRIGUEZ DO Attending Unavailable FRIEND EL GAMBINO Attending [facility]available [facility] Lorson STUMMEL SELECTOR-C, [place] Primary Care Provider [phone] Dr. El Peterson DO Attending Provider Dr. El Peterson DO Referring Provider Lorson STUMMEL SELECTOR-C, [place] Referring Provider [phone] Jacob STUMMEL SELECTOR-C, Stefani Attending Provider Jacob STUMMEL SELECTOR-C, Stefani Referring Provider Lorson STUMMEL SELECTOR-C, [place] Primary Care Provider [phone] El Peterson Referring Unavailable El Peterson Attending Unavailable Lorson STUMMEL SELECTOR, [place] Primary Care Unavailable Lorson STUMMEL SELECTOR, [place] Primary Care Unavailable JacobJossyStefani Referring Unavailable JacobStefani Attending Unavailable Lorson STUMMEL SELECTOR, [place] Primary Care Unavailable Jacob, Stefani Referring Unavailable Jacob Stefani Attending Unavailable El Peterson Attending Unavailable El Peterson Attending Unavailable JacobJossyStefani Attending Unavailable Lorson STUMMEL SELECTOR, [place] Referring Unavailable Lorson STUMMEL SELECTOR, [place] Primary Care Unavailable El Peterson Attending Unavailable Lorson STUMMEL SELECTOR, [place] Referring Unavailable Lorson STUMMEL SELECTOR, Heidy Primary Care Unavailable Heidy Butler NP Primary Care Unavailable FriendEl Referring Unavailable Friend, El Attending Unavailable Allergies Allergy Classification Reported Allergen(s) Allergy Type Date of Onset Reaction(s) Facility (11 sources) Acetaminophen / HYDROcodone; Translations: [acetaminophen-hy drocodone] Drug Allergy Paranoid disorder (disorder) [facility] (10 sources) Melatonin; Translations: [melatonin] Drug Allergy [facility] (10 sources) Naproxen; Translations: [naproxen] Drug Allergy [facility] (4 sources) Acetaminophen Drug Allergy 4 [facility] (4 sources) HYDROcodone Drug Allergy 4 [facility] (1 source) Acetaminophen Drug Allergy 5 [facility] (1 source) HYDROcodone Drug Allergy 5 [facility] (1 source) Milk Drug allergy (disorder) 5 [facility] Medications Current Medications Medication Drug Class(es) Dates [...] Date: 04/14/22 Stop Date: 04/21/22 Status: Ordered apixaban 5 mg oral tablet (4 sources) Factor Xa Inhibitor Start: 09-06-2022 Eliquis 5 mg oral tablet Dose : 5 mg = 1 tab(s), Oral, BID, # 60 tab(s), 11 Refill(s), [id number], 168, cm, 05/17/22 8:56:00 EDT, Height, 126.7, kg, 05/17/22 8:56:00 EDT, Dosing Weight Start Date: 09/06/22 Status: Ordered Start: 07-27-2022 Eliquis 5 mg o ral tablet Dose : 5 mg = 1 tab(s), Oral, BID, # 60 tab(s), 0 Refill(s), [facility]acy: [facility] #[id number], 168, cm, 05/17/22 8:56:00 EDT, Height, 126.7, kg, 05/17/22 8:56:00 EDT, Dosing Weight Start Date: 07/27/22 Status: Ordered ascorbic acid 250 mg oral tablet (16 sources) Vitamin C Start: 06-30-2020 take 1 tablet by mouth once daily Ascorbic Acid (Vitamin C) 250 mg tablet Active 250 mg PO DAILY April 22, 2021 12:00am budesonide 3 mg oral delayed release capsule (1 source) Start: 07-27-2021 budesonide 3 m g oral delayed release capsule Dose : 9 mg = 3 cap(s), Oral, qAM, 0 Refill(s) Start Date: 07/27/21 Status: Ordered Calcium (6 sources) Phosphate Binder, Calcium Start: 06-30-2020 take 1 tablet by mouth once daily calcium (as carbonate) 500 mg oral tablet 1 TABLET, Oral, Daily, 0 Refill(s) Start Date: 06/30/20 Status: Ordered Start: 06-30-2020 calcium (as ca rbonate) 500 mg oral tablet 0 Refill(s) Start Date: 06/30/20 Status: Ordered Calcium Carbonate (20 sources) Start: 04-25-2022 calcium carbon ate 0 Refill(s) Start Date: 04/25/22 Status: Ordered Start: 04-22-2021 take 1 tablet by pedro th once daily Calcium Carbonate (Calcium 500) 500 mg calcium (1,250 mg) tablet Active 500 mg PO DAILY April 22, 2021 12:00am cephalexin 500 mg oral tablet (1 source) Cephalosporin Antibacterial Start: 10-16-2023 End: 10-23-2023 take 1 tablet by mouth every six hours Keflex use cephalexin Dose : 500 mg =, Oral, q6hr, X 7 day(s), # 28 tab(s), 0 Refill(s), 10/23/23 7:02:00 AM EDT, 136 Start Date: 10/16/23 Stop Date: 10/23/23 Status: Ordered cetirizine hydrochloride 10 mg oral tablet (20 sources) Histamine-1 Receptor Antagonist Start: 07-02-2019 take 1 tablet by mouth once daily Cetirizine 10 mg tablet Active 10 mg PO DAILY April 22, 2021 12:00am cholecalciferol 0.05 mg oral capsule (14 sources) Vitamin D Start: 04-22-2021 take 1 capsule by mouth once daily Cholecalciferol (Vitamin D3) 50 mcg (2,000 unit) capsule Active 50 ug PO DAILY April 22, 2021 12:00am clindamycin 10 mg/ml topical lotion (20 sources) Lincosamide Antibacterial Start: 07-09-2023 clindamycin 1% topical lotion Apply 1 dell, Topical, BID, sent in absence of PCP, # 60 mL, 0 Refill(s), Pharmacy: [facility], 168, cm, 04/04/23 14:25:00 EDT, Height, 139.1, kg, 05/16/23 13:23:00 EDT, Dosing Weight Start Date: 07/09/23 Status: Ordered Start: 07-27-2021 End: 10-25-2021 clindamycin 1% topical lotio n Apply 1 dell, Topical, BID, # 60 mL, 2 Refill(s), Pharmacy: [facility], Lotion, 166.5, cm, 07/27/21 13:08:00 EST, Height, 116.9, kg, 07/27/21 13:08:00 EST, Dosing Weight Start Date: 07/27/21 Stop Date: 10/25/21 Status: Ordered Start: 04-22-2021 Clindamycin Ph osphate 1 % lotion Active 1 NMA TOPICAL TWICE A DAY as needed for hydradenitis April 22, 2021 12:00am clindamycin 1% topical lotio n (2 sources) Start: 07-27-2021 End: 10-25-2021 clindamycin 1% topical lotio n Apply 1 dell, Topical, BID, # 60 mL, 2 Refill(s), Pharmacy: [facility], Lotion, 166.5, cm, 07/27/21 13:08:00 EST, Height, 116.9, kg, 07/27/21 13:08:00 EST, Dosing Weight Start Date: 07/27/21 Stop Date: 10/25/21 Status: Ordered Start: 07-02-2019 End: 09-30-2019 clindamycin 1% topical lotio n Apply 1 dell, Topical, BID, # 60 mL, 2 Refill(s), Pharmacy: [facility], Lotion Start Date: 07/02/19 Stop Date: 09/30/19 Status: Ordered dicyclomine hydrochloride 20 mg oral tablet (20 sources) Anticholinergic Start: 09-26-2023 End: 12-17-2024 take 1 tablet by mouth three times daily as needed for pain Dicyclomine 20 mg tablet Active 20 mg PO THREE TIMES A DAY as needed for abdominal pain 90 2 December 17, 2024 3:31pm Start: 03-29-2021 End: 07-27-2021 take 10 mg by mouth four times daily Dicyclomine Active 10 MG PO .QID April 21, 2021 11:00pm Lactobacillus Combination No.4 (Probiotic) 3 billion cell capsule (14 sources) Start: 04-22-2021 take 3 capsules by mouth once daily Lactobacillus Combination No.4 (Probiotic) 3 billion cell capsule Active 3000 MMU CELLS PO DAILY April 22, 2021 10:33am administer with a meal Start: 04-22-2021 take 3 capsules by m outh once daily Lactobacillus Combination No.4 (Probiotic) 3 billion cell capsule Active 3000 NMA PO DAILY April 22, 2021 12:00am administer with a meal Start: 04-22-2021 take 3 capsules by m outh once daily Lactobacillus Combination No.4 (Probiotic) 3 billion cell capsule Active 3000 MMU CELLS PO DAILY April 21, 2021 11:00pm administer with a meal Start: 04-22-2021 take 3 capsules by m outh once daily Lactobacillus Combination No.4 (Probiotic) 3 billion cell capsule Active 3000 MMU CELLS PO DAILY April 22, 2021 12:00am administer with a meal mecobalamin 1 mg sublingual tablet (14 sources) Start: 09-07-2021 Mecobalamin (V itamin B12) 1,000 mcg tablet,disintegrating Active 1000 ug SL DAILY September 07, 2021 1:[address]am place tablet under tongue and allow to dissolve for at least30 secs before swallowing Start: 09-07-2021 Mecobalamin (V itamin B12) Active 1000 MCG SL DAILY September 07, 2021 12:[address]am place tablet under tongue and allow to dissolve for at least30 secs before swallowing metFORMIN hydrochloride 500 mg oral tablet (1 source) Biguanide Start: 12-21-2022 MetFORMIN (Eqv-Glucophage XR) 500 mg oral tablet, EXTENDED RELEASE 0 Refill(s) Start Date: 12/21/22 Status: Ordered nitrofurantoin, macrocrystals 100 mg oral capsule (6 sources) Nitrofuran Antibacterial Start: 04-09-2024 End: 12-17-2024 take 1 capsule by mouth at mealtime Nitrofurantoin Macrocrystal 100 mg capsule Active 100 mg PO AT BEDTIME as needed December 17, 2024 2:51pm must administer with a meal/food nitrofurantoin, macrocrystals 25 mg / nitrofurantoin, monohydrate 75 mg oral capsule (2 sources) Nitrofuran Antibacterial Start: 03-12-2024 Macrobid 100 mg oral capsule Dose : 100 mg = 1 cap(s), Oral, qHS, Take with food, # 90 cap(s), 2 Refill(s), Pharmacy: [facility], 166, cm, 03/12/24 13:02:00 EDT, Height, 136.8, kg, 03/12/24 13:02:00 EDT, Dosing Weight Start Date: 03/12/24 Status: Ordered Start: 11-12-2023 End: 11-19-2023 Macrobid 100 mg oral capsule Dose : 100 mg = 1 cap(s), Oral, BID, Take with food, X 7 day(s), # 14 cap(s), 0 Refill(s), 11/19/23 8:44:00 AM EDT, [id number], Acute recurrent cystitis UTI symptoms, 166, cm, 11/12/23 8:36:00 EDT, Height, 137, kg, 11/12/23 8:36:00 EDT, Dosing Weight Start Date: 11/12/23 Stop Date: 11/19/23 Status: Ordered ondansetron 4 mg disintegrating oral tablet (3 sources) Serotonin-3 Receptor Antagonist Start: 12-17-2024 End: 12-23-2024 take 2 tablets by mouth every two hours as needed, then take 1 tablet by mouth every four hours as needed Ondansetron 4 mg tablet,disintegrating Active 4 mg PO Q8H 5 0 December 23, 2024 10:25am take two tablets PO two hours prior to start of bowel prep and one every 4 hours as needed for N/V Probiotic (15 sources) Start: 04-25-2022 Probiotic 0 Refill(s) Start Date: 04/25/22 Status: Ordered Start: 01-18-2021 take 1 capsule by [facility] [place] once daily Probiotic 1 capsule, Oral, Daily, 0 Refill(s) Start Date: 01/18/21 Status: Ordered Start: 01-18-2021 Probiotic 0 Re fill(s) Start Date: 01/18/21 Status: Ordered psyllium 3400 mg powder for oral suspension (2 sources) Start: 04-07-2022 take 1.7 doses by mouth twice daily Metamucil 3.4 g/5.2 g oral powder for reconstitution Dose : 1.7 gram(s) =, Oral, BID, # 283 gram(s), 0 Refill(s) Start Date: 04/07/22 Status: Ordered Sod Picosulf-Mag Ox-Citric Ac (3 sources) Start: 12-23-2024 take 1 dose by mouth once daily in the morning Sod Picosulf-Mag Ox-Citric Ac (Clenpiq) 10 mg-3.5 gram- 12 gram/175 mL solution Active 175 mL PO EVERY MORNING 350 0 December 23, 2024 10:26am take as directed for split dose bowel prep Start: 12-17-2024 End: 12-23-2024 take 1 dose by mouth once daily in the morning Sod Picosulf-Mag Ox-Citric Ac (Clenpiq) 10 mg-3.5 gram- 12 gram/175 mL solution Discontinued 175 mL PO EVERY MORNING 350 0 December 17, 2024 12:00am December 23, 2024 10:26am take as directed for split dose bowel prep Start: 12-17-2024 take 1 dose by mouth once daily in the morning Sod Picosulf-Mag Ox-Citric Ac (Clenpiq) 10 mg-3.5 gram- 12 gram/175 mL solution Active 175 mL PO EVERY MORNING 350 December 17, 2024 12:00am take as directed for split dose bowel prep spironolactone 25 mg oral tablet (20 sources) Aldosterone Antagonist Start: 04-04-2023 End: 03-05-2025 spironolactone 25 mg oral tablet Dose : 25 mg = 1 tab(s), Oral, BID, # 180 tab(s), 3 Refill(s), Pharmacy: [facility], 166, cm, 11/12/23 8:36:00 EDT, Height, kg, 11/12/23 8:36:00 EDT, Dosing Weight Start Date: 03/10/24 Stop Date: 03/05/25 Status: Ordered Start: 07-27-2021 End: 07-22-2022 spironolactone 25 mg oral ta blet Dose : 25 mg = 1 tab(s), Oral, BID, in lieu of provider abscence, # 180 tab(s), 0 Refill(s), Pharmacy: [facility] ), 168, cm, 05/17/22 8:56:00 EDT, Height Start Date: 07/27/22 Status: Ordered Start: 04-22-2021 take 1 tablet by pedro th once daily Spironolactone 50 mg tablet Active 50 mg PO DAILY April 22, 2021 12:00am hydradenitis Start: 06-30-2020 End: 06-25-2021 spironolactone 25 mg oral ta blet Dose : 50 mg = 2 tab(s), Oral, qDay, # 180 tab(s), 3 Refill(s), [facility]: [id number], 165.1, cm, 06/30/20 13:10:00 EST, Height, kg, 06/30/20 13:10:00 EST, Dosing Weight Start Date: 06/30/20 Stop Date: 06/25/21 Status: Ordered traMADol hydrochloride 50 mg oral tablet (8 sources) Opioid Agonist Start: 03-22-2022 take 50 mg by mouth every eight hours Tramadol Active 50 MG PO Q8H March 21, 2022 11:00pm 1 ml ustekinumab 90 mg/ml prefilled syringe (10 sources) Interleukin-12 Antagonist, Interleukin-23 Antagonist Start: 03-12-2024 inject 1 mL by subcutaneous injection every three months Stelara PFS 90 mg/mL subcutaneous solution Dose : 90 mg = 1 mL, Subcutaneous, q3mo, # 1 mL, 0 Refill(s) Start Date: 03/12/24 Status: Ordered Start: 12-06-2023 End: 11-03-2024 Ustekinumab (Stelara) 90 mg/ mL syringe Active 90 mg SC every 8 weeks 1 November 03, 2024 7:19am Start: 12-06-2023 End: 12-17-2024 take 520 mg intravenously once Ustekinumab (Stelara) 1 30 mg/26 mL solution Discontinued 520 mg IV .x 1 December 06, 2023 12:00am December 17, 2024 2:52pm 520 mg intravenously; Infuse 520mg by IV route one time Vitamin B12 1000 mcg oral tablet (11 sources) Start: 04-25-2022 Vitamin B12 10 00 mcg oral tablet Dose : 1,000 mcg = 1 tab(s), Oral, qDay, # 30 tab(s), 0 Refill(s) Start Date: 04/25/22 Status: Ordered Start: 04-07-2022 Vitamin B12 10 00 mcg oral tablet Dose : 1,000 mcg = 1 tab(s), Oral, Daily, 0 Refill(s) Start Date: 04/07/22 Status: Ordered Vitamin C 250 mg oral tablet (13 sources) Start: 04-25-2022 Vitamin C 250 mg oral tablet Dose : 250 mg = 1 tab(s), Oral, qDay, # 30 tab(s), 0 Refill(s) Start Date: 04/25/22 Status: Ordered Start: 06-30-2020 Vitamin C 250 mg oral tablet Dose : 250 mg = 1 tab(s), Oral, qDay, # 30 tab(s), 0 Refill(s) Start Date: 06/30/20 Status: Ordered Vitamin D3 (9 sources) Start: 04-25-2022 Vitamin D3 Dos e : 20 mcg = 2 tab(s), Oral, Daily, # 60 tab(s), 0 Refill(s) Start Date: 04/25/22 Status: Ordered Vitamin D3 2000 intl units o ral capsule (6 sources) Start: 07-02-2019 Vitamin D3 200 0 intl units oral capsule Dose : 2,000 unit(s) = 1 cap(s), Oral, Daily, 0 Refill(s) Start Date: 07/02/19 Status: Ordered Completed/Discontinued Medications Medication Drug Class(es) Dates Sig (Normalized) Sig (Original) 0.4 ml adalimumab 100 mg/ml auto-injector (20 sources) Tumor Necrosis Factor Geoffrey Start: 01-25-2022 End: 12-06-2023 Adalimumab (Humira(Cf) Pen) 40 mg/0.4 mL pen injector kit Discontinued 40 mg SC EVERY WEEK 4 October 12, 2023 10:06am December 06, 2023 3:42pm Approved 3..24-10.10.25 Case: [id number] Start: 11-24-2021 End: 01-25-2022 Adalimumab (Humira(Cf)) 40 m g/0.4 mL syringe kit Discontinued 40 mg SC EVERY WEEK 4 November 24, 2021 12:00am January 25, 2022 11:26am Start: 11-14-2021 End: 11-24-2021 Adalimumab (Humira Pen) 40 m g/0.8 mL pen injector kit Discontinued 40 mg SC .weekly 1 November 14, 2021 9:06am November 24, 2021 5:09pm Inject one pen each week Start: 07-26-2021 End: 09-07-2021 Adalimumab (Humira Pen) 40 m g/0.8 mL pen injector kit Discontinued 80 mg SC ONCE 2 July 26, 2021 1:00am September 07, 2021 3:22pm Day 1 - inject 2 80mg/0.8mL (160mg). Day 15 inject 80mg/0.8mL. Start: 07-26-2021 End: 11-14-2021 Adalimumab (Humira Pen) 40 m g/0.8 mL pen injector kit Discontinued 40 mg SC ONCE 1 July 26, 2021 1:00am November 14, 2021 9:07am Day 29 inject 40mg/0.4mL then inject 40mg/0.4mL every other week indefinitely. Start: 05-02-2021 End: 07-26-2021 Adalimumab (Humira(Cf) Pen) 80 mg/0.8 mL pen injector kit Discontinued 0 SC .COMPLEX 1 May 02, 2021 12:00am July 26, 2021 4:03pm inject two - 80 mg/0.8 mL pens on Day 1; inject one - 80 mg/0.8 mL pen on Day 15 of therapy subcut Start: 05-02-2021 End: 07-26-2021 Adalimumab (Humira(Cf) Pen) 80 mg/0.8 mL pen injector kit Discontinued 0 SC .COMPLEX 1 May 01, 2021 11:00pm July 26, 2021 3:03pm inject two - 80 mg/0.8 mL pens on Day 1; inject one - 80 mg/0.8 mL pen on Day 15 of therapy subcut bisacodyl 5 mg delayed release oral tablet (14 sources) Stimulant Laxative Start: 04-22-2021 End: 09-07-2021 take 4 tablets by mouth once Bisacodyl 5 mg tablet,delayed release (DR/EC) Discontinued 20 mg PO ONCE 4 0 April 22, 2021 12:00am September 07, 2021 3:22pm Start: 04-22-2021 End: 09-07-2021 take 20 mg by mouth once Bisacodyl Discontinued 20 MG PO ONCE 4 April 21, 2021 11:00pm September 07, 2021 2:22pm budesonide 3 mg delayed release oral capsule (20 sources) Corticosteroid Start: 11-21-2023 End: 08-06-2024 take 2 capsules by mouth once daily in the morning Budesonide 3 mg capsule,delayed,extend.release Discontinued 6 mg PO EVERY MORNING 180 3 March 11, 2024 2:53pm August 06, 2024 3:25pm Start: 10-04-2023 End: 04-09-2024 Budesonide 3 mg capsule,delayed,extend.release Discontinued 0 PO DAILY 180 0 October 04, 2023 3:10pm April 09, 2024 2:59pm 9mg for a month; 6mg for a month; 3mg for a month then stop Start: 07-27-2021 budesonide 3 m g oral delayed release capsule Dose : 9 mg = 3 cap(s), Oral, qAM, 0 Refill(s) Start Date: 07/27/21 Status: Ordered Start: 04-27-2021 End: 07-06-2021 take 3 capsules by mouth once daily Budesonide 3 mg capsule,delayed,extend.release Discontinued 0 .ROUTE .COMPLEX 90 0 May 19, 2021 4:02pm July 06, 2021 11:08am TAKE 3 CAPSULES BY MOUTH ONCE DAILY Start: 04-27-2021 End: 07-06-2021 take 3 capsules by mouth once daily Budesonide Discontinued 0 .ROUTE .COMPLE X 90 May 19, 2021 3:02pm July 06, 2021 10:08am TAKE 3 CAPSULES BY MOUTH ONCE DAILY ciprofloxacin 500 mg oral tablet (3 sources) Quinolone Antimicrobial Start: 11-21-2023 End: 12-26-2023 take 1 tablet by mouth twice daily Ciprofloxacin Hcl 500 mg tablet Discontinued 500 mg PO TWICE A DAY 20 0 November 21, 2023 12:00am December 26, 2023 1:28pm colestipol hydrochloride 1000 mg oral tablet (5 sources) Bile Acid Sequestrant Start: 10-19-2023 colestipol 1 g oral tablet Dose : 1 gram(s) = 1 tab(s), Oral, BID, # 120 tab(s), 0 Refill(s) Start Date: 10/19/23 Status: Ordered Start: 10-01-2023 End: 12-26-2023 Colestipol 1 gram tablet Dis continued 1 g PO TWICE A DAY 60 0 October 01, 2023 12:00am December 26, 2023 1:28pm {21 (Desogestrel 0.15 MG / Ethinyl Estradiol 0.03 MG Oral Tablet) / 7 (Inert Ingredients 1 MG Oral Tablet) } Pack [Enskyce 28 Day] (14 sources) Progestin, Estrogen Start: 04-05-2022 End: 03-31-2023 take 1 tablet by mouth once daily Enskyce 0.15 mg-0.03 mg oral tablet Dose = 1 tab(s), Oral, qDay, # 90 tab(s), 3 Refill(s), [facility] 165.6, cm, 04/05/22 14:29:00 EDT, Height, kg, 04/05/22 14:29:00 EDT, Dosing Weight Start Date: 04/05/22 Stop Date: 03/31/23 Status: Ordered Start: 07-27-2021 End: 01-23-2022 take 1 tablet by mouth once daily Enskyce 0.15 mg-0.03 mg oral tablet Dose = 1 tab(s), Oral, qDay, # 90 tab(s), 1 Refill(s), Pharmacy: [facility], 166.5, cm, 07/27/21 13:08:00 EST, Height, kg, 07/27/21 13:08:00 EST, Dosing Weight Start Date: 07/27/21 Stop Date: 01/23/22 Status: Ordered Start: 04-22-2021 Desogestrel-Et hinyl Estradiol (Enskyce) 0.15-0.03 mg tablet Active 1 TABLET PO DAILY April 22, 2021 10:33am Start: 04-22-2021 Desogestrel-Et hinyl Estradiol (Enskyce) 0.15-0.03 mg tablet Active 1 TABLET PO DAILY April 21, 2021 11:00pm Start: 04-22-2021 Desogestrel-Et hinyl Estradiol (Enskyce) 0.15-0.03 mg tablet Active 1 TABLET PO DAILY April 22, 2021 12:00am doxycycline hyclate 20 mg oral tablet (18 sources) Tetracycline-class Drug Start: 11-25-2019 End: 09-07-2021 take 1 tablet by mouth twice daily as needed Doxycycline Hyclate 20 mg tablet Discontinued 20 mg PO TWICE A DAY as needed for hydradenitis April 22, 2021 12:00am September 07, 2021 3:23pm Skin condition Enskyce 0.15 mg-0.03 mg oral tablet (2 sources) Start: 07-27-2021 End: 01-23-2022 take 1 tablet by mouth once daily Enskyce 0.15 mg-0.03 mg oral tablet Dose = 1 tab(s), Oral, qDay, # 90 tab(s), 1 Refill(s), Pharmacy: [facility], 166.5, cm, 07/27/21 13:08:00 EST, Height, kg, 07/27/21 13:08:00 EST, Dosing Weight Start Date: 07/27/21 Stop Date: 01/23/22 Status: Ordered Start: 05-09-2021 End: 11-05-2021 take 1 tablet by mouth once daily Enskyce 0.15 mg-0.03 mg oral tablet Dose = 1 tab(s), Oral, qDay, # 90 tab(s), 1 Refill(s), [facility], 165.1, cm, 03/22/21 8:29:00 EDT, Height, kg, 03/22/21 8:29:00 EDT, Dosing Weight Start Date: 05/09/21 Stop Date: 11/05/21 Status: Ordered fluconazole 200 mg oral tablet (3 sources) Azole Antifungal Start: 11-21-2023 End: 12-26-2023 take 1 tablet by mouth once daily Fluconazole 200 mg tablet Discontinued 200 mg PO DAILY November 21, 2023 12:00am December 26, 2023 1:29pm folic acid 1 mg oral tablet (20 sources) Start: 05-11-2021 End: 11-03-2024 take 1 tablet by mouth once daily Folic Acid 1 mg tablet Discontinued 1 mg PO DAILY August 06, 2023 12:45pm November 03, 2024 1:49pm levonorgestrel 0.087384 mg/hr intrauterine system (4 sources) Progestin, Progestin-containi ng Intrauterine Device Start: 07-26-2023 End: 12-26-2023 Levonorgestrel [Levonorgestrel 21 Mcg/24 Hours (8 Yrs) 52 Mg Intrauterine Device] (Levonorgestrel 21 Mcg/24 Hours (8 Yrs) 52 Mg Intrauterine ) 21 mcg/24 hours (8 yrs) 52 mg intrauterine device Discontinued 1 NMA INTRA-UTER DAILY July 26, 2023 1:00am December 26, 2023 1:29pm Start: 07-26-2023 Levonorgestrel [Levonorgestrel 21 Mcg/24 Hours (8 Yrs) 52 Mg Intrauterine Device] (Levonorgestrel 21 Mcg/24 Hours (8 Yrs) 52 Mg Intrauterine ) 21 mcg/24 hours (8 yrs) 52 mg intrauterine device Active 1 DEVICE INTRA-UTER DAILY July 26, 2023 12:00am methotrexate 2.5 mg oral tablet (20 sources) Folate Analog Metabolic Inhibitor Start: 06-06-2021 End: 06-30-2021 take 1 tablet by mouth every week Methotrexate Sodium 2.5 mg tablet Discontinued 2.5 mg PO EVERY WEEK 20 30 June 22, 2021 1:00am June 30, 2021 5:20pm Start: 06-06-2021 End: 07-06-2021 take 6 tablets by mouth every week Methotrexate Sodium 2.5 mg tablet Discontinued 2.5 mg PO EVERY WEEK 26 July 01, 2021 10:27am July 06, 2021 11:08am Take 6 tabs once a week Start: 05-11-2021 End: 07-01-2021 take 5 tablets by mouth every week Methotrexate Sodium 2.5 mg tablet Discontinued 2.5 mg PO EVERY WEEK 09 10June 30, 2021 1:00am July 01, 2021 10:29am Take 5 tabs once a week Start: 05-11-2021 End: 06-06-2021 take 12.5 mg by mouth every week Methotrexate Sodium Discontinued 12.5 MG PO EVERY WEEK May 10, 2021 11:00pm June 06, 2021 1:05pm metroNIDAZOLE 0.0075 mg/mg vaginal gel (1 source) Nitroimidazole Antimicrobial Start: 12-21-2022 End: 12-26-2022 metroNIDAZOLE 0.75% vaginal gel with applicator Dose = 1 dell, Vaginal, BID, X 5 day(s), # 70 gram(s), 0 Refill(s), Pharmacy: [facility] #[id number], 168, cm, 12/21/22 9:44:00 EDT, Height Start Date: 12/21/22 Stop Date: 12/26/22 Status: Ordered polyethylene glycol 3350 28617 mg powder for oral solution (14 sources) Osmotic Laxative Start: 04-22-2021 End: 09-07-2021 Polyethylene Glycol 3350 (Miralax) 17 gram/dose powder Discontinued 17 g PO Q10M 238 0 April 22, 2021 12:00am September 07, 2021 3:23pm vancomycin 125 mg oral capsule (14 sources) Glycopeptide Antibacterial Start: 04-27-2021 End: 09-07-2021 take 1 capsule by mouth every six hours Vancomycin 125 mg capsule Discontinued 125 mg PO EVERY 6 HOURS 42 0 April 27, 2021 12:00am September 07, 2021 3:23pm Problems Active Problems Problem Classification Problem Date Documented Date Episodic/Chronic Contraceptive and procreative management (11 sources) Oral contraception 04-05-2022 Episodic Deficiency and other anemia (15 sources) Anemia 03-22-2021 Episodic Diabetes mellitus without complication (4 sources) Hyperglycemia 04-04-2023 Episodic Disorders of lipid metabolism (15 sources) Hypertriglyceridemia 06-30-2020 Chronic Gastrointestinal hemorrhage (20 sources) Hematochezia; Translations: [Lower gastrointestinal hemorrhage] 03-22-2021 Episodic Immunizations and screening for infectious disease (2 sources) Encounter for screening for human papillomavirus (HPV); Translations: [Encounter for screening for human papillomavirus (HPV)] Onset: 03-12-20 Episodic Inflammatory diseases of female pelvic organs (6 sources) Vaginitis 12-21-2022 Episodic Nutritional deficiencies (15 sources) Vitamin D deficiency 07-02-2019 Chronic Other gastrointestinal disorders (4 sources) Urgent desire for stool; Translations: [Fecal urgency] 12-17-2024 Episodic Other non-traumatic joint disorders (1 source) Ankle joint pain; Translations: [Pain in right ankle and joints of right foot] Episodic Other screening for suspected conditions (not mental disorders or infectious disease) (2 sources) Encounter for screening for malignant neoplasm of cervix; Translations: [Encounter for screening for malignant neoplasm of cervix] Onset: 03-12-20 Episodic Other skin disorders (15 sources) Acne 07-02-2019 Episodic Other skin disorders (15 sources) Hidradenitis suppurativa 07-02-2019 Episodi c Other upper respiratory disease (15 sources) Allergic rhinitis 07-02-2019 Chronic Phlebitis; thrombophlebitis and thromboembolism (9 sources) Bilateral deep vein thrombosis of lower extremities 04-25-2022 Episodic Pulmonary heart disease (9 sources) 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 Pulmonary heart disease (4 sources) H/O: pulmonary embolus 04-04-2023 Episodic Regional enteritis and ulcerative colitis (20 sources) Ulcerative colitis; Translations: [Ulcerative colitis, unspecified with rectal bleeding] Onset: 09-29-1907-27-2021 Chronic Spondylosis; intervertebral disc disorders; other back problems (9 sources) Backache 04-25-2022 Episodic Unclassified (20 sources) Patient encounter status 07-27-2021 Unclassified (11 sources) Injury of right ankle 04-05-2022 Past or Other Problems Problem Classification Problem Date Documented Da te Episodic/Chronic Urinary tract infections (2 sources) Acute cystitis without hematuria; Translations: [Acute cystitis without hematuria] Onset: 11-12-2023 Episodic Results Test Name Value Interpretation Reference Range Facility Calprotectin, Stoolon [address] 924 ug/g Abnormal 0-120 [facility] Comment on above: Result Comment: Re sults verified by repeat testing Concentration Interpretation Follow-Up < 5 - 50 ug/g Normal None >50 -120 ug/g Borderline Re-evaluate in 4-6 weeks >120 ug/g Abnormal Repeat as clinically indicated Performed at: - [facility] [id number] Stunner: Selina Hobson MD, Phone: [phone] Performed By: #### L 7000.0700 ####[facility] [address] [place], [address] Calprotectin stoolOrdered By : Stefani James on 01-14-2025 Calprotectin stool 924 ug/g High 0-120 [facility] Comment on above: Results verified b y repeat testingConcentration Interpretation Follow-Up< 5 - 50 ug/g Normal None>50 -120 ug/g Borderline Re-evaluate in 4-6 weeks >120 ug/g Abnormal Repeat as clinically indicatedPerformed at: - [facility] [id number] Director: Selina Hobson MD, Phone: [phone] Quantiferon TB-Gold+on 12-19 QFT MITOGEN SABRA > 10.00 Normal . [facility] Comment on above: Performed By: #### L 100.0100, L3890.6202, L3400.8000, L501.6710, L500.4050 ####[facility] [address] [place], [address] QFT NIL VALUE 0.05 IU/mL Normal . [facility] Comment on above: Performed By: #### L 100.0100, L3890.6202, L3400.8000, L501.6710, L500.4050 ####[facility] [address] [place], [place], [id number] QFT TB GOLD+ Comment Normal . [facility] Comment on above: Result Comment: Jensen tiFERON-TB Gold Plus is a qualitative indirect test for M tuberculosis infection (including disease) and is intended for use in conjunction with risk assessment, radiography, and other medical and diagnostic evaluations. The QuantiFERON-TB Gold Plus result is determined by subtracting the Nil value from either TB antigen (Ag) value. The Mitogen tube serves as a control for the test. Performed By: #### L 100.0100, L3890.6202, L3400.8000, L501.6710, L500.4050 ####[facility] [address] [facility]. [place], [place], [id number] QFT TB POS CRIT Negative Normal Negative [facility] Comment on above: Result Comment: No r esponse to M tuberculosis antigens detected. Infection with M tuberculosis is unlikely, but high risk individuals should be considered for additional testing (ATS/IDSA/CDC Clinical Practice Guidelines, 2017). The reference range is an Antigen minus Nil result of <0.35 IU/mL. The specimen received for QuantiFERON testing was incubated by the ordering institution. Specific procedures outlined in our Directory of Services and in the package insert for the QuantiFERON Gold (In Tube) test must be followed to enable for proper stimulation of cells for the production of interferon gamma. Chemiluminescence immunoassay methodology Performed at: [facility] [address] [id number] Stunner: Meng Carmona PhD, Phone: [phone] Performed By: #### L 100.0100, L3890.6202, L3400.8000, L501.6710, L500.4050 ####[facility] [address] [facility]. [place], [place], [id number] QFT TB1+ AG SABRA 0.20 IU/mL Normal . [facility] Comment on above: Performed By: #### L 100.0100, L3890.6202, L3400.8000, L501.6710, L500.4050 ####[facility] [address] [place], [address] QFT TB2+ AG SABRA 0.18 IU/mL Normal . [facility] Comment on above: Performed By: #### L 100.0100, L3890.6202, L3400.8000, L501.6710, L500.4050 ####[facility] [address] [place], [address] Absolute lymphocyte countOrd ered By: Stefani James on 12-17-2024 Lymphocytes Auto (Unsp spec) [#/Vol] 3.03 10*3/uL 0.83-4.51 [facility] Absolute neutrophil countOrd ered By: Stefani James on 12-17-2024 Neutrophils (Bld) [#/Vol] 9.7 10*3/uL High 2.0-7.7 [facility] Anion gap in Serum or Plasma Ordered By: Stefani James on 12-17-2024 Anion gap [Moles/Vol] 11 mmol/L 5-15 [facility] Automated lymphocyte count a s percentage of total leukocytesOrdered By: Stefani James on 12-17-2024 Lymphocytes/100 WBC Auto (Unsp spec) 21.4 % - [facility] BUN/creatinine ratioOrdered By: Stefani James on 12-17-2024 Urea nitrogen/Creatinine [Mass ratio] 12.1 mg/mg 10-20 [facility] Basophil percentageOrdered B y: Stefani James on 12-17-2024 Basophils/100 WBC (Bld) 0.6 % 0-1 [facility] Bilirubin, totalOrdered By: Stefani James on 12-17-2024 Bilirubin [Mass/Vol] 0.23 mg/dL 0.00-1.30 [facility] CBC W/Diff, Automatedon 11-21 Absolute Lymph 3.03 X10 3/uL Normal 0.83-4.51 [facility] Comment on above: Performed By: #### L 100.0100, L3890.6202, L3400.8000, L501.6710, L500.4050 #### [facility] [address] [place], [address] Absolute Neut 9.7 X10 3/uL High 2.0-7.7 [facility] Comment on above: Performed By: #### L 100.0100, L3890.6202, L3400.8000, L501.6710, L500.4050 #### [facility] [address] [place], [address] Basophils/100 WBC (Bld) 0.6 % Normal 0-1 [facility] Comment on above: Performed By: #### L 100.0100, L3890.6202, L3400.8000, L501.6710, L500.4050 #### [facility] [address] [place], [address] Eosinophils/100 WBC (Bld) 0.8 % Normal 0-5 [facility] Comment on above: Performed By: #### L 100.0100, L3890.6202, L3400.8000, L501.6710, L500.4050 #### [facility] [address] [place], [address] Erythrocyte distribution width (RBC) [Ratio] 12.6 % Normal 11.6-14.6 [facility] Comment on above: Performed By: #### L 100.0100, L3890.6202, L3400.8000, L501.6710, L500.4050 #### [facility] [address] [place], [address] Hematocrit (Bld) [Volume fraction] 38.7 % Normal 37-47 [facility] Comment on above: Performed By: #### L 100.0100, L3890.6202, L3400.8000, L501.6710, L500.4050 #### [facility] [address] [place], [address] Hemoglobin (Bld) [Mass/Vol] 13.1 g/dL Normal 12.0-15.0 [facility] Comment on above: Performed By: #### L 100.0100, L3890.6202, L3400.8000, L501.6710, L500.4050 #### [facility] [address] [place], [address] IG% 0.500 Normal 0.0-0.9 [facility] Comment on above: Result Comment: IG% - Immature Granulocytes (promyelocytes, myelocytes and metamyelocytes) > 1% indicates that a LEFT SHIFT is Present. Performed By: #### L 100.0100, L3890.6202, L3400.8000, L501.6710, L500.4050 #### [facility] [address] [place], [address] Lymphocytes/100 WBC (Bld) 21.4 % Normal 19-41 [facility] Comment on above: Performed By: #### L 100.0100, L3890.6202, L3400.8000, L501.6710, L500.4050 #### [facility] [address] [place], [address] MCH (RBC) [Entitic mass] 30.6 pg Normal 27.0-32.0 [facility] Comment on above: Performed By: #### L 100.0100, L3890.6202, L3400.8000, L501.6710, L500.4050 #### [facility] [address] [place], [address] MCHC (RBC) [Mass/Vol] 33.9 g/dL Normal 32-36 [facility] Comment on above: Performed By: #### L 100.0100, L3890.6202, L3400.8000, L501.6710, L500.4050 #### [facility] [address] [place], [address] MCV (RBC) [Entitic vol] 90.4 fL Normal 81-99 [facility] Comment on above: Performed By: #### L 100.0100, L3890.6202, L3400.8000, L501.6710, L500.4050 #### [facility] [address] [place], [address] Monocytes/100 WBC (Bld) 8.6 % Normal 0-10 [facility] Comment on above: Performed By: #### L 100.0100, L3890.6202, L3400.8000, L501.6710, L500.4050 #### [facility] [address] [place], [address] Neutrophils/100 WBC (Bld) 68.1 % Normal 47-70 [facility] Comment on above: Performed By: #### L 100.0100, L3890.6202, L3400.8000, L501.6710, L500.4050 #### [facility] [address] [place], [address] Nucleated RBC (Bld) [#/Vol] 0 10*3/uL Normal 0-5 [facility] Comment on above: Performed By: #### L 100.0100, L3890.6202, L3400.8000, L501.6710, L500.4050 #### [facility] [address] [place], [address] Platelet mean volume (Bld) [Entitic vol] 11.3 fL Normal 6.2-12.0 [facility] Comment on above: Performed By: #### L 100.0100, L3890.6202, L3400.8000, L501.6710, L500.4050 #### [facility] [address] [place], [address] Platelets (Bld) [#/Vol] 334 10*3/uL Normal 150-450 [facility] Comment on above: Performed By: #### L 100.0100, L3890.6202, L3400.8000, L501.6710, L500.4050 #### [facility] [address] [place], [address] RBC (Bld) [#/Vol] 4.28 10*6/uL Normal 4.2-5.4 [facility] Comment on above: Performed By: #### L 100.0100, L3890.6202, L3400.8000, L501.6710, L500.4050 #### [facility] [address] [place], [address] RDW SD 40.9 fl Normal 35.1-43.9 [facility] Comment on above: Performed By: #### L 100.0100, L3890.6202, L3400.8000, L501.6710, L500.4050 #### [facility] [address] [place], [address] WBC (Bld) [#/Vol] 14.2 10*3/uL High 4.4-11.0 [facility] Comment on above: Performed By: #### L 100.0100, L3890.6202, L3400.8000, L501.6710, L500.4050 #### [facility] [address] [place], [address] CRPon 12-17-2024 C-REACTIVE PROT 8.87 mg/L High 0.0-3.0 [facility] Comment on above: Performed By: #### L 100.0100, L3890.6202, L3400.8000, L501.6710, L500.4050 ####[facility] [address] [place], [address] Carbon dioxide, total [Moles /volume] in Central venous bloodOrdered By: Stefani James on 12-17-2024 CO2 [Moles/Vol] 24.1 mmol/L 21.0-32.0 [facility] Chloride assayOrdered By: Sudhakar boydtimothy James on 12-17-2024 Chloride [Moles/Vol] 101 mmol/L 98-108 [facility] Comprehensive Metabolic Prof ilon 12-17-2024 Albumin [Mass/Vol] 4.3 g/dL Normal 3.5-5.0 [facility] Comment on above: Performed By: #### L 100.0100, L3890.6202, L3400.8000, L501.6710, L500.4050 ####[facility] [address] [place], [address] Albumin/Globulin [Mass ratio] 1.1 {ratio} Normal 0.9-2.4 [facility] Comment on above: Performed By: #### L 100.0100, L3890.6202, L3400.8000, L501.6710, L500.4050 ####[facility] [address] [place], [address] ALK PHOS 78 U/L Normal 35-104 [facility] Comment on above: Performed By: #### L 100.0100, L3890.6202, L3400.8000, L501.6710, L500.4050 ####[facility] [address] [place], [address] ALT [Catalytic activity/Vol] 27 U/L Normal <=34 [facility] Comment on above: Performed By: #### L 100.0100, L3890.6202, L3400.8000, L501.6710, L500.4050 ####[facility] [address] [place], [address] AST [Catalytic activity/Vol] 21 U/L Normal <=31 [facility] Comment on above: Performed By: #### L 100.0100, L3890.6202, L3400.8000, L501.6710, L500.4050 ####[facility] [address] [place], [address] Bilirubin [Mass/Vol] 0.23 mg/dL Normal 0.00-1.30 [facility] Comment on above: Performed By: #### L 100.0100, L3890.6202, L3400.8000, L501.6710, L500.4050 ####[facility] [address] [place], [address] BUN/CRE 12.1 RATIO Normal 10-20 [facility] Comment on above: Performed By: #### L 100.0100, L3890.6202, L3400.8000, L501.6710, L500.4050 ####[facility] [address] [place], [address] Calcium [Mass/Vol] 9.8 mg/dL Normal 7.6-11.0 [facility] Comment on above: Performed By: #### L 100.0100, L3890.6202, L3400.8000, L501.6710, L500.4050 ####[facility] [address] [place], [address] Chloride [Moles/Vol] 101 mmol/L Normal 98-108 [facility] Comment on above: Performed By: #### L 100.0100, L3890.6202, L3400.8000, L501.6710, L500.4050 ####[facility] [address] [place], [address] CO2 [Moles/Vol] 24.1 mmol/L Normal 21.0-32.0 [facility] Comment on above: Performed By: #### L 100.0100, L3890.6202, L3400.8000, L501.6710, L500.4050 ####[facility] [address] [place], [address] Creatinine [Mass/Vol] 0.64 mg/dL Low 0.70-1.20 [facility] Comment on above: Performed By: #### L 100.0100, L3890.6202, L3400.8000, L501.6710, L500.4050 ####[facility] [address] [place], [address] GAP 11 Normal 5-15 [facility] Comment on above: Performed By: #### L 100.0100, L3890.6202, L3400.8000, L501.6710, L500.4050 ####[facility] [address] [place], [address] GFR/1.73 sq M.predicted among non-blacks MDRD (S/P/Bld) [Vol rate/Area] 119 mL/min/{1.73_m2} Normal >60 [facility] Comment on above: Result Comment: mL/m in/1.73m2 CKD-EPI Creatinine Equation (2020) Performed By: #### L 100.0100, L3890.6202, L3400.8000, L501.6710, L500.4050 ####[facility] [address] [place], [address] Globulin (S) [Mass/Vol] 3.8 g/dL Normal 2.2-4.2 [facility] Comment on above: Performed By: #### L 100.0100, L3890.6202, L3400.8000, L501.6710, L500.4050 ####[facility] [address] [place], [address] Glucose [Mass/Vol] 83 mg/dL Normal 70-99 [facility] Comment on above: Performed By: #### L 100.0100, L3890.6202, L3400.8000, L501.6710, L500.4050 ####[facility] [address] [place], [address] Potassium [Moles/Vol] 3.8 mmol/L Normal 3.3-5.1 [facility] Comment on above: Performed By: #### L 100.0100, L3890.6202, L3400.8000, L501.6710, L500.4050 ####[facility] [address] [place], [address] Sodium [Moles/Vol] 136 mmol/L Normal 133-145 [facility] Comment on above: Performed By: #### L 100.0100, L3890.6202, L3400.8000, L501.6710, L500.4050 ####[facility] [address] [place], [address] T PROT 8.1 g/dL Normal 5.9-8.4 [facility] Comment on above: Performed By: #### L 100.0100, L3890.6202, L3400.8000, L501.6710, L500.4050 ####[facility] [address] [place], [address] Urea nitrogen [Mass/Vol] 8 mg/dL Normal 4-19 [facility] Comment on above: Performed By: #### L 100.0100, L3890.6202, L3400.8000, L501.6710, L500.4050 ####[facility] [address] [place], [address] Eosinophil percentageOrdered By: Stefani James on 12-17-2024 Eosinophils/100 WBC (Bld) 0.8 % 0-5 [facility] Erythrocyte distribution wid th ratioOrdered By: Stefani James on 12-17-2024 Erythrocyte distribution width (RBC) [Ratio] 12.6 % 11.6-14.6 [facility] Erythrocyte distribution wid th standard deviationOrdered By: Stefani James on 12-17-2024 Erythrocyte distribution width (RBC) [Ratio] 40.9 fl 35.1-43.9 [facility] Gastroenterology Visit Repor ton 12-17-2024 Gastroenterology Visit Report [facility] [address] [place] [address] OFFICE VISIT Date of Service: 12/17/24 MR#: [id number] Acct: [id number] Name: WALT SANCHEZ Rep #: [id number] : 1990 Provider: UNIQUE busch Age/Sex: 34/F Location: [facility] [place] Status: Signed Intake Vital Signs 12/26/23 13:30 12/17/24 14:56 Height 5 ft 5 in 5 ft 5 in Weight: 297 lb BMI 49.4 BP 125/84 H Respiration 16 Pulse 84 Pulse Oximetry (%) 94 Oxygen Delivery Method room air Intake Visit Reasons: 4 M FU Chief Complaint: UC follow-up Schedule Supervisor Required: No Accompanied by: Self Is patient in pain?: No Allergies acetaminophen (From Vicodin) Adverse Reaction (Verified 12/17/24 14:57) paranoia hydrocodone (From Vicodin) Adverse Reaction (Verified 12/17/24 14:57) paranoia Medications ???Medication ???Instructions ???Recorded ???Confirmed ???Type ascorbic acid (vitamin C) 250 mg 250 mg PO DAILY 04/22/21 12/17/24 History tablet calcium carbonate (Calcium 500) 500 mg PO DAILY 04/22/21 12/17/24 History cetirizine 10 mg tablet 10 mg PO DAILY 04/22/21 12/17/24 H istory cholecalciferol (vitamin D3) 50 50 mcg PO DAILY 04/22/21 12/17/24 History mcg (2,000 unit) capsule clindamycin phosphate 1 % lotion 1 applic topical BID PRN 04/22/21 12/17/24 History hydradenitis lactobacillus combination no.4 3 3,000 mmu cells PO DAILY 04/22/21 12/17/24 History billion cell capsule (Probiotic) spironolactone 50 mg tablet 50 mg PO DAILY hydradenitis 12/17/24 History mecobalamin (vitamin B12) 1,000 1,000 mcg sublingual DAILY 09/07/ 2 12/17/24 History mcg disintegrating tablet,sublingual folic acid 1 mg tablet 1 mg PO DAILY #90 tabs 11/03/24 Rx ustekinumab 90 mg/mL subcutaneous 90 mg subcut Q8W #1 mL 11/03/24 0 12/17/24 Rx syringe (Stelara) dicyclomine 20 mg tablet 20 mg PO TID PRN abdominal pain 12/17/24 Rx #90 tabs nitrofurantoin macrocrystal 100 mg 100 mg PO QHS PRN 12/17/2412/17 History capsule ondansetron 4 mg disintegrating 4 mg PO Q8H #5 tabs 12/17/2412/17 Rx tablet sod picosulf 10 mg-magnes 3.5 175 ml PO QAM 1 dose #350 mL 12/1712/17/24 Rx gram-citric 12 gram/175 mL oral solution (Clenpiq) Nurse's Note: She doesn't know how she should be feeling on the Stelara , she would like to talk about that. 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 [place] Smoking Status: Never smoker [facility] HPI Chief Complaint: UC follow-up Details: WALT SANCHEZ, is a 34 F who presents to the office today for Initial Diagnosis: 2020 Presenting Symptoms: diarrhea, bleeding, pain CBC: 08/06/2024 WBC 12.3, HGB 13 CMP: 08/06/2024 normal transaminases and Cr CRP: 08/06/2024 14.30 VITAMIN 25.1 Ustekinumab: 08/06/2024 level 9.1 w/o Ab QUANTIFERON: 12/30/2022 negative HBVsAb: HBVsA07/27/2021 negative HBV Core Total Ab: 07/27/2021 negative Fecal Calprotectin: 09/03/2024 121 09/14/2021 62 COLON 07/30/2023 - negative for active inflammation - Mild (Chery Score 1) ulcerative colitis Inflammation was found in a continuous and circumferential pattern from the rectum to the sigmoid colon. This was graded as Chery Score 1 (mild, with erythema, decreased vascular pattern, mild friability), and when compared to the previous examination, the findings are improved. COLON 04/27/2021 - Rectal inflammatory pseudopolyp, random biopsies moderate to marked chronic active colitis (no dysplasia), TI biopsy unremarkable - Moderately active (Chery Score 2) pancolitis ulcerative colitis. A 5 mm polyp was found in the rectum (benign-appearing lesion). A patchy area of the distal ileum was congested. This was biopsied with a cold forceps for histology. Verification of patient identification for the specimen was done. Estimated blood loss was minimal. MEDS: dicyclomine (start 2021), September 2023 Colestipol added for diarrhea BIOLOGICS: Stelara start date December 2023 - due to developing AB to Humira Humira start - (more content not included)... Normal [facility] Glomerular filtration rate ( GFR) estimation/1.73 sq m using serum, plasma, or whole bOrdered By: Stefani James on 12-17-2024 GFR/1.73 sq M.predicted among non-blacks MDRD (S/P/Bld) [Vol rate/Area] 119 mL/min/{1.73_m2} >60 [facility] Comment on above: mL/min/1.73m2 CKD-EP I Creatinine Equation (2020) Hematocrit Auto (Bld) [Volum e fraction]Ordered By: Stefani James on 12-17-2024 Hematocrit (Bld) [Volume fraction] 38.7 % 37-47 [facility] Hemoglobin measurementOrdere d By: Stefani James on 12-17-2024 Hemoglobin (Bld) [Mass/Vol] 13.1 g/dL 12.0-15.0 [facility] Hepatitis B Surface Antibody on 12-17-2024 HEP B Surf Ab REAC Normal [facility] Comment on above: Result Comment: <8.5 mIU/mL: Non-Reactive 8.5<= x <11.5 mIU/mL: Indeterminate >=11.5 mIU/mL: Reactive Non Reactive: Inconsistent with immunity less than <10 mIU/mL Reactive: Consistent with immunity greater than or equal to 10 mIU/mL Performed By: #### L 100.0100, L3890.6202, L3400.8000, L501.6710, L500.4050 #### [facility] [address] [place], [address] Immature granulocytes/100 WB C Auto (Bld)Ordered By: Stefani James on 12-17-2024 Immature granulocytes/100 WBC (Bld) 0.500 % 0.0-0.9 [facility] Comment on above: IG% - Immature Granu locytes (promyelocytes, myelocytes and metamyelocytes) > 1% indicates that a LEFT SHIFT is Present. Laboratory - Chemistry and C hemistry - challengeOrdered By: Stefani James on 12-17-2024 AST [Catalytic activity/Vol] 21 U/L <32 [facility] MCV (mean corpuscular volume ) determinationOrdered By: Stefani James on 12-17-2024 MCV (RBC) [Entitic vol] 90.4 fL 81-99 [facility] Mean corpuscular hemoglobin (MCH) determinationOrdered By: Stefani James on 12-17-2024 MCH (RBC) [Entitic mass] 30.6 pg 27.0-32.0 [facility] Mean corpuscular hemoglobin concentration (MCHC) determinationOrdered By: Stefani James on 12-17-2024 MCHC (RBC) [Mass/Vol] 33.9 g/dL 32-36 [facility] Mean platelet volume determi nationOrdered By: Stefani James on 12-17-2024 Platelet mean volume (Bld) [Entitic vol] 11.3 fL 6.2-12.0 [facility] Monocyte percentageOrdered B y: Stefani James on 12-17-2024 Monocytes/100 WBC (Bld) 8.6 % 0-10 [facility] Neutrophil percentageOrdered By: Stefani James on 12-17-2024 Neutrophils/100 WBC (Bld) 68.1 % 47-70 [facility] Nucleated red blood cell per centageOrdered By: Stefani James on 12-17-2024 Nucleated RBC/100 WBC (Bld) [Ratio] 0 % 0-5 [facility] Platelet countOrdered By: Sudhakar James on 12-17-2024 Platelets (Bld) [#/Vol] 334 10*3/uL 150-450 [facility] Potassium measurement (mass/ volume)Ordered By: Stefani James on 12-17-2024 Potassium (Unsp spec) [Mass/Vol] 3.8 mmol/L 3.3-5.1 [facility] Qualitative QuantiFERON-TB g old in tube testOrdered By: Stefani James on 12-17-2024 M. tuberculosis tuberculin stim IFN-g Ql (Bld) 0.20 IU/mL . [facility] RBC Auto (Bld) [#/Vol]Ordere d By: Stefani James on 12-17-2024 RBC (Bld) [#/Vol] 4.28 10*6/uL 4.2-5.4 [facility] Serum creatinine measurement (mass/volume)Ordered By: Stefani James on 12-17-2024 Creatinine [Mass/Vol] 0.64 mg/dL Low 0.70-1.20 [facility] Serum globulin measurementOr dered By: Stefani James on 12-17-2024 Globulin (S) [Mass/Vol] 3.8 g/dL 2.2-4.2 [facility] Serum glucose measurement (m ass/volume)Ordered By: Stefani James on 12-17-2024 Glucose [Mass/Vol] 83 mg/dL 70-99 [facility] Serum hepatitis B virus surf aggie antibody detectionOrdered By: Stefani James on 12-17-2024 HBV surface Ab Ql (S) REAC [facility] Comment on above: <8.5 mIU/mL: Non-Angela ctive8.5<= x <11.5 mIU/mL: Indeterminate>=11.5 mIU/mL: Reactive Non Reactive: Inconsistent with immunity less than <10 mIU/mL Reactive: Consistent with immunity greater than or equal to 10 mIU/mL Serum or plasma C reactive p rotein measurement (mass/volume)Ordered By: Stefani James on 12-17-2024 CRP [Mass/Vol] 8.87 mg/L High 0.0-3.0 [facility] Serum or plasma alanine alexander otransferase (ALT) measurementOrdered By: Stefani James on 12-17-2024 ALT [Catalytic activity/Vol] 27 U/L <35 [facility] Serum or plasma albumin nomi urement (mass/volume)Ordered By: Stefani James on 12-17-2024 Albumin [Mass/Vol] 4.3 g/dL 3.5-5.0 [facility] Serum or plasma albumin/glob ulin mass ratioOrdered By: Stefani James on 12-17-2024 Albumin/Globulin [Mass ratio] 1.1 {ratio} 0.9-2.4 [facility] Serum or plasma alkaline nicole sphatase measurementOrdered By: Stefani James on 12-17-2024 ALP [Catalytic activity/Vol] 78 U/L 35-104 [facility] Serum or plasma calcium nomi urement (mass/volume)Ordered By: Stefani James on 12-17-2024 Calcium [Mass/Vol] 9.8 mg/dL 7.6-11.0 [facility] Serum or plasma urea nitroge n measurement (mass/volume)Ordered By: Stefani James on 12-17-2024 Urea nitrogen [Mass/Vol] 8 mg/dL 4-19 [facility] Sodium levelOrdered By: Della James on 12-17-2024 Sodium [Moles/Vol] 136 mmol/L 133-145 [facility] Total proteinOrdered By: Jossy James on 12-17-2024 Protein [Mass/Vol] 8.1 g/dL 5.9-8.4 [facility] White blood cell (WBC) count Ordered By: Stefani James on 12-17-2024 WBC (Bld) [#/Vol] 14.2 10*3/uL High 4.4-11.0 [facility] Calprotectin, Stoolon [address] 121 ug/g Abnormal 0-120 [facility] Comment on above: Result Comment: Conc entration Interpretation Follow-Up < 5 - 50 ug/g Normal None >50 -120 ug/g Borderline Re-evaluate in 4-6 weeks >120 ug/g Abnormal Repeat as clinically indicated Performed at: [address] [id number] Stunner: Selina Hobson MD, Phone: [phone] Performed By: #### M 100.6796, M600.5000, M100.637, L7000.0700, M100.0605 #### [facility] [address] [place], [place], [id number] Ova and Parasites 8623on OP OVA AND PARASITES EX AM, ROUTINE These results were obtained using wet preparation(s) and trichrome stained smear. This test does not include testing for Crytosporidium parvum, Cyclospora, or Microsporidia. One negative specimen does not rule out the possibility of a parasitic infection. TESTING PERFORMED AT [facility]. ORIGINAL REPORT ON FILE IN LAB CONTAINS ADDITIONAL TEST SITE INFORMATION. Ova/Parasite Exam NO OVA, CYSTS, OR PARASITES FOUND. Normal [facility] Comment on above: Performed By: #### M 100.6796, M600.5000, M100.637, L7000.0700, M100.0605 #### [facility] [address] [place], [place], [id number] CDIFF (PCR)on 09-03-2024 CDIFF A positive C. diffic ile molecular test does not differentiate between an active C. difficile infection and C. difficile colonization. Use clinical judgement and paired toxin/antigen testing to identify true infection and need for treatment. C diff DNA Spec Ql BOBBY+probe Reference Range: Negative CepEkoid GeneXpert: polymerase chain reaction (PCR) 027 027 NAP1-B1 Presumptive Negative *for epidemiolologic???use C. Diff PCR Negative- No toxigenic C. Diff Detected Normal [facility] Comment on above: Performed By: #### M 100.6796, M600.5000, M100.637, L7000.0700, M100.0605 #### [facility] [address] [place], [place], [id number] Calprotectin stoolOrdered By : El Peterson on 09-03-2024 Calprotectin stool 121 ug/g High 0-120 [facility] Comment on above: Concentration Interp retation Follow-Up< 5 - 50 ug/g Normal None>50 -120 ug/g Borderline Re-evaluate in 4-6 weeks >120 ug/g Abnormal Repeat as clinically indicatedPerformed at: [facility] [id number] Director: Selina Hobson MD, Phone: [phone] Clostridium difficile detect ion by polymerase chain reactionOrdered By: El Peterson on 09-03-2024 C. difficile DNA BOBBY+probe Ql (Unsp spec) [facility] ENTERIC PATHOGEN PANEL STOOL on 09-03-2024 EP PANEL CAMPYLOBACTER Not Detected Norovirus Not Detected Rotavirus Not Detected Salmonella Not Detected Shiga Toxin Not Detected Shigella sp. Not Detected VIBRIO Not Detected Yersinia Not Detected Normal [facility] Comment on above: Performed By: #### M 100.6796, M600.5000, M100.637, L7000.0700, M100.0605 #### [facility] [address] [place], [place], [id number] Stool Lactoferrin/WBCon 08-23 WBCST Normal Reference Ran ge = Negative Fecal WBC Lactoferrin A Positive: Fecal WBC Lactoferrin present A Normal [facility] Comment on above: Performed By: #### M 100.6796, M600.5000, M100.637, L7000.0700, M100.0605 #### [facility] [address] [place], [address] Stool lactoferrin detection by immunoassayOrdered By: El Peterson on 09-03-2024 Lactoferrin IA Ql (Stl) [facility] L3410.9999on 08-18-2024 [facility] Misc. COMMENT Normal . [facility] Comment on above: Order Comment: [id number] DoseASSURE SERUM RED FZ Result Comment: Test Ordered: [id number] Ustekinumab Drug + Antibody Ustekinumab 9.1 ug/mL ES Reference Range: . Quantitation Limit: <0.1 ug/mL Results of 0.1 ug/mL or higher indicate detection of ustekinumab. COMMENTS: - Induction levels in Crohn's Disease: - Patients who received IV 130 mg or 6 mg/kg had median trough concentrations of 2.1 ug/mL and 6.4 ug/mL, respectively, at week 8 in UNITI trials.(1) - Maintenance levels: - Of UNITI patients with trough levels greater than 1.1 ug/mL, about 80% achieved clinical remission (HBI < 5) and about 50% attained CRP normalization.(2) - Higher maintenance concentrations, greater than 4.5 ug/mL (achieved with q8wk or q4wk dosing after SQ induction), may be necessary for endoscopic response (SES-CD score reduction >=50%).(3) - Trough levels predictive of mucosal healing and fistula healing have yet to be determined. - In plaque psoriasis, median trough ustekinumab concentrations were 0.4 ug/mL at weeks 14 and 28 (ranging from undetectable to 3.6 ug/mL).(4) Although PASI50 responders had higher trough concentrations than non- responders in a study of 76 patients, a definitive therapeutic target range for psoriasis has yet to be established.(5) - As with other biologics, the optimal drug concentration depends upon patient-specific factors including co- morbidities, disease and desired therapeutic endpoint - This ustekinumab drug assay measures the free fraction of ustekinumab (antibody-unbound ustekinumab) when serum anti-ustekinumab antibodies are present. Anti-Ustekinumab Antibody <40 ng/mL ES Reference Range: . Quantitation Limit: < 40 ng/mL Results of 40 ng/mL or higher indicate detection of anti- ustekinumab antibodies. COMMENTS: - This anti-ustekinumab antibody assay is drug-tolerant, i.e. the detection of anti-ustekinumab antibodies is not impeded by the presence of ustekinumab in serum. - All positive anti-ustekinumab antibody results are verified by a confirmatory test. - The concomitant free ustekinumab drug concentration (reported above) is the pharmacodynamically active drug when anti-ustekinumab antibodies are present. - Serial measurements over time may be helpful to assess the impact of immunogenicity on the free drug level. - In the IM-UNITI trial, the incidence of anti-ustekinumab antibodies in Crohn's Disease at 1 year was 2.3%.(1) - In psoriasis, anti-ustekinumab antibodies occurred in 4-6% of patients.(6) References: 1. Caterina DE LEÓN, et al. Gastroenterology 2016;150(4):S408. 2. Caterina Tellez et al. P007 Exposure-Response to SC Ustekinumab in Moderate - Severe Crohn's Disease: Results from the IM-UNITI Maintenance Study. Advances in AIBD. April 2017. 3. Anibaltanabor R, et al. Clin Gastroenterol Hepatol 2017;15: 2770-9176. 4. Oksana TRIVEDI, et al. Br J Dermatol;2015:173;855-857. 5. Vira H, et al. PLOS ONE DOI;10:1371/journal.pone.6792741. 6. Nadiya L, et al. Br J Dermatol 2014;170:261-273. These tests were developed and their performance characteristics determined by [facility]. They have not been cleared or approved by the Food and Drug Administration. However, both drug and anti-drug antibody assays have been developed and validated in accordance with FDA Guidance for Industry documents: Bioanalytical Method Validation (2013) and Assay Development and Validation for Immunogenicity Testing of Therapeutic Protein Products (2016). Performed at: [facility] [address] [place] [id number] Stunner: Edgar Mead MD, Phone: [phone] Performed at: - [facility] [id number] Stunner: Meng Carmona PhD, Phone: [phone] Performed By: #### L 500.4050, L501.6710, L101.9900, L3410.9999, L100.0100 ####[facility] [address] [place], [address] CBC W/Diff, Automatedon 07-23 Absolute Lymph 2.88 X10 3/uL Normal 0.83-4.51 [facility] Comment on above: Performed By: #### L 500.4050, L501.6710, L101.9900, L3410.9999, L100.0100 ####[facility] [address] [place], [address] Absolute Neut 7.9 X10 3/uL High 2.0-7.7 [facility] Comment on above: Performed By: #### L 500.4050, L501.6710, L101.9900, L3410.9999, L100.0100 ####[facility] [address] [place], [address] Basophils/100 WBC (Bld) 0.6 % Normal 0-1 [facility] Comment on above: Performed By: #### L 500.4050, L501.6710, L101.9900, L3410.9999, L100.0100 ####[facility] [address] [place], [address] Eosinophils/100 WBC (Bld) 1.7 % Normal 0-5 [facility] Comment on above: Performed By: #### L 500.4050, L501.6710, L101.9900, L3410.9999, L100.0100 ####[facility] [address] [place], [address] Erythrocyte distribution width (RBC) [Ratio] 12.2 % Normal 11.6-14.6 [facility] Comment on above: Performed By: #### L 500.4050, L501.6710, L101.9900, L3410.9999, L100.0100 ####[facility] [address] [place], [address] Hematocrit (Bld) [Volume fraction] 39.7 % Normal 37-47 [facility] Comment on above: Performed By: #### L 500.4050, L501.6710, L101.9900, L3410.9999, L100.0100 ####[facility] [address] [place], [address] Hemoglobin (Bld) [Mass/Vol] 13.0 g/dL Normal 12.0-15.0 [facility] Comment on above: Performed By: #### L 500.4050, L501.6710, L101.9900, L3410.9999, L100.0100 ####[facility] [address] [place], [address] IG% 0.500 Normal 0.0-0.9 [facility] Comment on above: Result Comment: IG% - Immature Granulocytes (promyelocytes, myelocytes and metamyelocytes) > 1% indicates that a LEFT SHIFT is Present. Performed By: #### L 500.4050, L501.6710, L101.9900, L3410.9999, L100.0100 ####[facility] [address] [place], [address] Lymphocytes/100 WBC (Bld) 23.5 % Normal 19-41 [facility] Comment on above: Performed By: #### L 500.4050, L501.6710, L101.9900, L3410.9999, L100.0100 ####[facility] [address] [place], [address] MCH (RBC) [Entitic mass] 30.2 pg Normal 27.0-32.0 [facility] Comment on above: Performed By: #### L 500.4050, L501.6710, L101.9900, L3410.9999, L100.0100 ####[facility] [address] [place], [address] MCHC (RBC) [Mass/Vol] 32.7 g/dL Normal 32-36 [facility] Comment on above: Performed By: #### L 500.4050, L501.6710, L101.9900, L3410.9999, L100.0100 ####[facility] [address] [place], [address] MCV (RBC) [Entitic vol] 92.1 fL Normal 81-99 [facility] Comment on above: Performed By: #### L 500.4050, L501.6710, L101.9900, L3410.9999, L100.0100 ####[facility] [address] [place], [address] Monocytes/100 WBC (Bld) 9.1 % Normal 0-10 [facility] Comment on above: Performed By: #### L 500.4050, L501.6710, L101.9900, L3410.9999, L100.0100 ####[facility] [address] [place], [address] Neutrophils/100 WBC (Bld) 64.6 % Normal 47-70 [facility] Comment on above: Performed By: #### L 500.4050, L501.6710, L101.9900, L3410.9999, L100.0100 ####[facility] [address] [place], [address] Nucleated RBC (Bld) [#/Vol] 0 10*3/uL Normal 0-5 [facility] Comment on above: Performed By: #### L 500.4050, L501.6710, L101.9900, L3410.9999, L100.0100 ####[facility] [address] [place], [address] Platelet mean volume (Bld) [Entitic vol] 11.1 fL Normal 6.2-12.0 [facility] Comment on above: Performed By: #### L 500.4050, L501.6710, L101.9900, L3410.9999, L100.0100 ####[facility] [address] [place], [address] Platelets (Bld) [#/Vol] 336 10*3/uL Normal 150-450 [facility] Comment on above: Performed By: #### L 500.4050, L501.6710, L101.9900, L3410.9999, L100.0100 ####[facility] [address] [place], [address] RBC (Bld) [#/Vol] 4.31 10*6/uL Normal 4.2-5.4 [facility] Comment on above: Performed By: #### L 500.4050, L501.6710, L101.9900, L3410.9999, L100.0100 ####[facility] [address] [place], [address] RDW SD 41.5 fl Normal 35.1-43.9 [facility] Comment on above: Performed By: #### L 500.4050, L501.6710, L101.9900, L3410.9999, L100.0100 ####[facility] [address] [place], [address] WBC (Bld) [#/Vol] 12.3 10*3/uL High 4.4-11.0 [facility] Comment on above: Performed By: #### L 500.4050, L501.6710, L101.9900, L3410.9999, L100.0100 ####[facility] [address] [place], [address] CRPon 08-06-2024 C-REACTIVE PROT 14.30 mg/L High 0.0-3.0 [facility] Comment on above: Result Comment: C-Re active Protein (CRP) provides useful information for the diagnosis, therapy and monitoring of inflammatory processes and associated diseases. For the evaluation of Relative Risk for Cardiovascular Disease, a High Sensitivity CRP (HSCRP) should be ordered. Performed By: #### L 500.4050, L501.6710, L101.9900, L3410.9999, L100.0100 ####[facility] [address] [place], [address] Comprehensive Metabolic Prof ilon 08-06-2024 Albumin [Mass/Vol] 3.7 g/dL Normal 3.2-5.0 [facility] Comment on above: Performed By: #### L 500.4050, L501.6710, L101.9900, L3410.9999, L100.0100 ####[facility] [address] [place], [address] Albumin/Globulin [Mass ratio] 0.8 {ratio} Low 0.9-2.4 [facility] Comment on above: Performed By: #### L 500.4050, L501.6710, L101.9900, L3410.9999, L100.0100 ####[facility] [address] [place], [address] ALK P 79 U/L Normal 45-117 [facility] Comment on above: Performed By: #### L 500.4050, L501.6710, L101.9900, L3410.9999, L100.0100 ####[facility] [address] [place], [address] ALT [Catalytic activity/Vol] 30 U/L Normal 13-56 [facility] Comment on above: Performed By: #### L 500.4050, L501.6710, L101.9900, L3410.9999, L100.0100 ####[facility] [address] [place], [address] AST [Catalytic activity/Vol] 15 U/L Normal 15-37 [facility] Comment on above: Performed By: #### L 500.4050, L501.6710, L101.9900, L3410.9999, L100.0100 ####[facility] [address] [place], [address] Bilirubin [Mass/Vol] 0.20 mg/dL Normal 0.20-1.00 [facility] Comment on above: Result Comment: For patients on eltrombopag therapy, use of Dimension Hesperus TBIL is not recommended. Performed By: #### L 500.4050, L501.6710, L101.9900, L3410.9999, L100.0100 ####[facility] [address] [place], [address] BUN/CRE 11.1 RATIO Normal 10-20 [facility] Comment on above: Performed By: #### L 500.4050, L501.6710, L101.9900, L3410.9999, L100.0100 ####[facility] [address] [place], [address] CA,Total 9.6 mg/dL Normal 8.5-10.1 [facility] Comment on above: Performed By: #### L 500.4050, L501.6710, L101.9900, L3410.9999, L100.0100 ####[facility] [address] [place], [address] Chloride [Moles/Vol] 104 mmol/L Normal 98-107 [facility] Comment on above: Performed By: #### L 500.4050, L501.6710, L101.9900, L3410.9999, L100.0100 ####[facility] [address] [place], [address] CO2 [Moles/Vol] 30.0 mmol/L Normal 21.0-32.0 [facility] Comment on above: Performed By: #### L 500.4050, L501.6710, L101.9900, L3410.9999, L100.0100 ####[facility] [address] [place], [address] Creatinine [Mass/Vol] 0.81 mg/dL Normal 0.55-1.02 [facility] Comment on above: Result Comment: The validity of the calculated GFR GFRAA in patients over 70 years has not been determined. Clinical correlation is essential. Performed By: #### L 500.4050, L501.6710, L101.9900, L3410.9999, L100.0100 ####[facility] [address] [place], [address] EST GFR - AA 105 mL/min Normal >60 [facility] Comment on above: Result Comment: Afri can Dutch GFR Calc Performed By: #### L 500.4050, L501.6710, L101.9900, L3410.9999, L100.0100 ####[facility] [address] [facility] [address] GAP 4 Low 5-15 [facility] Comment on above: Performed By: #### L 500.4050, L501.6710, L101.9900, L3410.9999, L100.0100 ####[facility] [address] [place], [address] GFR/1.73 sq M.predicted among non-blacks MDRD (S/P/Bld) [Vol rate/Area] 86 mL/min/{1.73_m2} Normal >60 [facility] Comment on above: Result Comment: Non- GFR Calc Performed By: #### L 500.4050, L501.6710, L101.9900, L3410.9999, L100.0100 ####[facility] [address] [place], [address] Globulin (S) [Mass/Vol] 4.7 g/dL High 2.2-4.2 [facility] Comment on above: Performed By: #### L 500.4050, L501.6710, L101.9900, L3410.9999, L100.0100 ####[facility] [address] [place], [address] Glucose [Mass/Vol] 80 mg/dL Normal 74-106 [facility] Comment on above: Performed By: #### L 500.4050, L501.6710, L101.9900, L3410.9999, L100.0100 ####[facility] [address] [place], [address] Potassium [Moles/Vol] 3.5 mmol/L Normal 3.5-5.1 [facility] Comment on above: Performed By: #### L 500.4050, L501.6710, L101.9900, L3410.9999, L100.0100 ####[facility] [address] [place], [address] Sodium [Moles/Vol] 138 mmol/L Normal 136-145 [facility] Comment on above: Performed By: #### L 500.4050, L501.6710, L101.9900, L3410.9999, L100.0100 ####[facility] [address] [place], [address] T PROT 8.4 g/dL High 6.4-8.2 [facility] Comment on above: Performed By: #### L 500.4050, L501.6710, L101.9900, L3410.9999, L100.0100 ####[facility] [address] [place], [address] Urea nitrogen [Mass/Vol] 9 mg/dL Normal 7-18 [facility] Comment on above: Performed By: #### L 500.4050, L501.6710, L101.9900, L3410.9999, L100.0100 ####[facility] [address] [place], [address] Erythrocyte Sed Rateon 08-06 SED RATE 36 mm/hr High 0-30 [facility] Comment on above: Performed By: #### L 500.4050, L501.6710, L101.9900, L3410.9999, L100.0100 ####[facility] [address] [place], [address] Gastroenterology Visit Repor ton 08-06-2024 Gastroenterology Visit Report [facility] [address] [place] [address] OFFICE VISIT Date of Service: 08/06/24 MR#: [id number] Acct: [id number] Name: WALT SANCHEZ BAM Rep #: [id number] : 1990 Provider: El Peterson DO Age/Sex: 34/F Location: [facility] [place] Status: Signed Intake Vital Signs 12/26/23 13:30 Height 5 ft 5 in Weight: 290 lb BMI 48.2 BP 129/68 H Position Sitting Respiration 16 Pulse 94 Temp 96.4 F L Temp Source Temporal Pulse Oximetry (%) 97 Intake Visit Reasons: 4 M FU Allergies acetaminophen (From Vicodin) Adverse Reaction (Verified 12/26/23 13:28) paranoia hydrocodone (From Vicodin) Adverse Reaction (Verified 12/26/23 13:28) paranoia Medications ???Medication ???Instructions ???Recorded ???Confirmed ???Type ascorbic acid (vitamin C) 250 mg 250 mg PO DAILY 04/22/21 08/06/24 History tablet calcium carbonate (Calcium 500) 500 mg PO DAILY 04/22/21 08/06/24 History cetirizine 10 mg tablet 10 mg PO DAILY 04/22/21 08/06/24 History cholecalciferol (vitamin D3) 50 50 mcg PO DAILY 04/22/21 08/06/24 History mcg (2,000 unit) capsule clindamycin phosphate 1 % lotion 1 applic topical BID PRN 04/22/21 08/06/24 History hydradenitis lactobacillus combination no.4 3 3,000 mmu cells PO DAILY 04/22/21 08/06/24 History billion cell capsule (Probiotic) spironolactone 50 mg tablet 50 mg PO DAILY hydradenitis 04/22/21 08/06/24 History mecobalamin (vitamin B12) 1,000 1,000 mcg sublingual DAILY 09/07/21 08/06/24 History mcg disintegrating tablet,sublingual folic acid 1 mg tablet 1 mg PO DAILY #90 tabs 08/06/23 08/06/24 Rx dicyclomine 20 mg tablet 20 mg PO TID PRN abdominal pain 09/26/23 08/06/24 Rx #90 tabs ustekinumab 130 mg/26 mL 520 mg IV .x 1 12/06/23 08/06/24 History intravenous solution (Stelara) ustekinumab 90 mg/mL subcutaneous 90 mg subcut Q8W #1 mL 12/06/23 08/06/24 Rx syringe (Stelara) nitrofurantoin macrocrystal 100 mg 100 mg PO QHS 04/09/24 08/06/24 History capsule PFSH Medical History Migraine headache History of GI bleed Hx of ulcerative colitis Shortness of breath on exertion DVT (deep venous thrombosis) Leg cramps Hx of dislocation of ankle Ulcerative colitis with rectal bleeding PCOS (polycystic ovarian syndrome) Wears glasses Depression Anxiety Alcohol use Non-smoker Vitamin D-dependent rickets, type 1 Hypertriglyceridemia Hidradenitis suppurativa Allergic rhinitis Acne Anemia Hematochezia Surgical History Hx of colonoscopy History of wisdom tooth extraction Social History 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 *BGI established .08.12 with referral from PCP for evaluation of blood in her stools with years of bloating, cramping and intermittent diarrhea. PCP performed stool studies which were negative for C.Difficile, but fecal calprotectin was >3000.0. Colonoscopy .01.10 finding moderately active pancolitis ulcerative colitis, Chery Score 2; one 5mm pseudopolyp removed; congested mucosa in distal ileum. She was Start vancomycin and budesonide. OV .. with continued diarrhea with blood, urgency, frequency and cramping. Start methotrexate. OV .08.12 with improvement of urgency and consistency of stool though continued blood. Would like to pursue Humira in the new year. Continue methotrexate and budesonide until Humira start. OV 1.. with continued improvement though liquid stools continue. Humira process initiated. Continue methotrexate and budesonide until Humira start. Humira started .. OV 2.16.22 with continued improvement with resolution of blood and fecal incontinence; continued gas and abdominal cramping. OV 3.30.22 with budesonide tapering and intermittent symptoms of gas, watery BM, abdominal cramping, tenesmus. Continue Humira, start dicyclomine. OV 6.. with improved symptoms with increase in Humira frequency; added Metamucil and this has been helpful also. Did experience increased stress since LV. OV 8..22 without symptoms r/t UC. Continue weekly Humira Surgery for ankle ligament repair with complication of massive saddle PE requiring ICU hospitalization with heparin; discharged 04.22.22 with outpatient Eliquis. No flare of UC symptoms during this time. OV 12.14. with continued UC symptom resolution. OV 3.8.23 Reports she is doing well without GI manifestations of her UC. Also without rash, vision changes or joint pain. Contact 8 symptoms are well controlle (more content not included)... Normal [facility] Gastroenterology Visit Repor ton 04-09-2024 Gastroenterology Visit Report [facility] Gastroenterology [address] [place] [address] OFFICE VISIT Date of Service: 04/09/24 MR#: [id number] Acct: [id number] Name: WALT SANCEHZ Rep #: [id number] : 1990 Provider: El Peterson DO Age/Sex: 34/F Location: [facility] [place] Status: Signed Intake Vital Signs 07/30/23 06:07 12/26/23 13:30 Height 5 ft 5 in 5 ft 5 in Intake Visit Reasons: 4 M FU Allergies acetaminophen (From Vicodin) Adverse Reaction (Verified 12/26/23 13:28) paranoia hydrocodone (From Vicodin) Adverse Reaction (Verified 12/26/23 13:28) paranoia Medications ???Medication ???Instructions ???Recorded ???Confirmed ???Type ascorbic acid (vitamin C) 250 mg 250 mg PO DAILY 04/22/21 04/09/24 History tablet calcium carbonate (Calcium 500) 500 mg PO DAILY 04/22/21 04/09/24 History cetirizine 10 mg tablet 10 mg PO DAILY 04/22/21 04/09/24 History cholecalciferol (vitamin D3) 50 50 mcg PO DAILY 04/22/21 04/09/24 History mcg (2,000 unit) capsule clindamycin phosphate 1 % lotion 1 applic topical BID PRN 04/22/21 04/09/24 History hydradenitis lactobacillus combination no.4 3 3,000 mmu cells PO DAILY 04/22/21 04/09/24 History billion cell capsule (Probiotic) spironolactone 50 mg tablet 50 mg PO DAILY hydradenitis 04/22/21 04/09/24 History mecobalamin (vitamin B12) 1,000 1,000 mcg sublingual DAILY 09/07/21 04/09/24 History mcg disintegrating tablet,sublingual folic acid 1 mg tablet 1 mg PO DAILY #90 tabs 08/06/23 04/09/24 Rx dicyclomine 20 mg tablet 20 mg PO TID PRN abdominal pain 09/26/23 04/09/24 Rx #90 tabs ustekinumab 130 mg/26 mL 520 mg IV .x 1 12/06/23 04/09/24 History intravenous solution (Stelara) ustekinumab 90 mg/mL subcutaneous 90 mg subcut Q8W #1 mL 12/06/23 04/09/24 Rx syringe (Stelara) budesonide 3 mg 6 mg (2 x 3 mg) PO QAM #180 ea 03/11/24 04/09/24 Rx capsule,delayed,extended release nitrofurantoin macrocrystal 100 mg 100 mg PO QHS 04/09/24 04/09/24 History capsule PFSH Medical History Migraine headache History of GI bleed Hx of ulcerative colitis Shortness of breath on exertion DVT (deep venous thrombosis) Leg cramps Hx of dislocation of ankle Ulcerative colitis with rectal bleeding PCOS (polycystic ovarian syndrome) Wears glasses Depression Anxiety Alcohol use Non-smoker Vitamin D-dependent rickets, type 1 Hypertriglyceridemia Hidradenitis suppurativa Allergic rhinitis Acne Anemia Hematochezia Surgical History Hx of colonoscopy History of wisdom tooth extraction Social History 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 *BGI established .08.12 with referral from PCP for evaluation of blood in her stools with years of bloating, cramping and intermittent diarrhea. PCP performed stool studies which were negative for C.Difficile, but fecal calprotectin was >3000.0. Colonoscopy 04.27.21 finding moderately active pancolitis ulcerative colitis, Chery Score 2; one 5mm pseudopolyp removed; congested mucosa in distal ileum. She was Start vancomycin and budesonide. OV 05.11.21 with continued diarrhea with blood, urgency, frequency and cramping. Start methotrexate. OV 06.22.21 with improvement of urgency and consistency of stool though continued blood. Would like to pursue Humira in the new year. Continue methotrexate and budesonide until Humira start. OV 1..22 with continued improvement though liquid stools continue. Humira process initiated. Continue methotrexate and budesonide until Humira start. Humira started 08.10. OV 2.16. with continued improvement with resolution of blood and fecal incontinence; continued gas and abdominal cramping. OV 3.30. with budesonide tapering and intermittent symptoms of gas, watery BM, abdominal cramping, tenesmus. Continue Humira, start dicyclomine. OV 6.. with improved symptoms with increase in Humira frequency; added Metamucil and this has been helpful also. Did experience increased stress since LV. OV 03.22. without symptoms r/t UC. Continue weekly Humira Surgery for ankle ligament repair with complication of massive saddle PE requiring ICU hospitalization with heparin; discharged 04.22.22 with outpatient Eliquis. No flare of UC symptoms during this time. OV 12. with continued UC symptom resolution. OV 3. Reports she is doing well without GI manifestations of her UC. Also without rash, vision changes or joint pain. Contact 03.07.23 symptoms are well controlled. OV 05.23.23 reports she is d (more content not included)... Normal [facility] Cytology Reporton 2023 [facility] Cytology Report . Pathology Reports Accession: Collected Date/Time: Received Date/Time: Pathologist: [id number] 03/12/2024 13:18 EDT 03/12/2024 18:00 EDT [facility] Cytology Report SPECIMEN: Specimen Description: Liquid Prep w/ HPV Specimen: Cervical Screening or Diagnostic: Screening RELEVANT HISTORY: LMP: BHUMIKA SPECIMEN ADEQUACY: SATISFACTORY FOR EVALUATION Endocervical/Transformatio nal zone component present INTERPRETATION/RESULTS: NEGATIVE FOR INTRAEPITHELIAL LESION OR MALIGNANCY HIGH RISK HPV TESTING: Event Code Result HPV Interp See Interp HPVN HPV Interp Text: High Risk HPV Typing: NEGATIVE HPV types 16, 18, 31, 33, 35, 39, 45, 51, 52, 56, 58, 59, 66 and 68 DNA were undetectable or below the pre-set threshold. The bolivar High-Risk HPV DNA Test is not intended for use as a screening device for Pap normal women under age 30 and is not intended to substitute for regular Pap screening. The bolivar High-Risk HPV DNA Test is designed to augment existing methods for the detection of cervical disease and should be used in conjunction with clinical information derived from other diagnostic and screening tests, physical examinations and full medical history in accordance with appropriate patient management procedures. NOTE: A negative result does not preclude the presence of HPV infection because results depend on adequate specimen collection, absence of inhibitors and sufficient DNA to be detected. As of: 03/17/24 13:01 EDT COMMENT: This Pap Test was successfully processed and evaluated with the assistance of the RevolucionadolabsPrep Test Imaging System. Pathology Reports Accession: Collected Date/Time: Received Date/Time: Pathologist: [id number] 03/12/2024 13:18 EDT 03/12/2024 18:00 EDT Electronically Signed by Pathology report verified by [facility] Screened by: KK Electronically signed by Chula GANT (ASCP) Sign-Out Date: 03/17/2024 13:01 Performing Lab: [facility], [address] [place] [address] Pathology Dept Disclaimer The Pap test is a screening test for cervical cancer. As evidenced by published data, it is subject to both inherent false negative and false positive results. Your patient's results should be interpreted in context with pertinent clinical history including gynecological examination. Normal [facility] ([place]) HPVon 03-17-2024 HPV Interp Normal See Interp HPVN [facility] ([place]) Comment on above: Order Comment: Order placed by AP_HPV_ORDER rule from [id number] Result Comment: High Risk HPV Typing: NEGATIVE HPV types 16, 18, 31, 33, 35, 39, 45, 51, 52, 56, 58, 59, 66 and 68 DNA were undetectable or below the pre-set threshold. The bolivar High-Risk HPV DNA Test is not intended for use as a screening device for Pap normal women under age 30 and is not intended to substitute for regular Pap screening. The bolivar High-Risk HPV DNA Test is designed to augment existing methods for the detection of cervical disease and should be used in conjunction with clinical information derived from other diagnostic and screening tests, physical examinations and full medical history in accordance with appropriate patient management procedures. NOTE: A negative result does not preclude the presence of HPV infection because results depend on adequate specimen collection, absence of inhibitors and sufficient DNA to be detected. See Interp HPVN Performed By: #### H PV ####[place] [address] HPV Source Cervix Normal [facility] ([place]) Comment on above: Order Comment: Order placed by AP_HPV_ORDER rule from [id number] Performed By: #### H PV ####[place] [address] No Panel Informationon 11-11 Culture Urine 10,000 - 50,000 cfu/ ml Multiple bacterial morphotypes present. Probable Contamination. Suggest recollection if clinically indicated. [facility] Work Phone: .Auto Diffon 10-16-2023 Basophil, Absolute 0.1 10 3/mcL Normal 0.0-0.3 [facility] ([place]) Comment on above: Performed By: #### A CAROLEE, LIP, ADIFF, CBC, CMP, MDW, GFR ####[place] [address] Eosinophil, Absolute 0.2 10 3/mcL Normal 0.0-0.7 [facility] ([place]) Comment on above: Performed By: #### A CAROLEE, LIP, ADIFF, CBC, CMP, MDW, GFR ####[place] [address] Lymphocyte, Absolute 4.2 10 3/mcL Normal 0.9-4.3 [facility] ([place]) Comment on above: Performed By: #### A CAROLEE, LIP, ADIFF, CBC, CMP, MDW, GFR ####[place] [address] Monocyte, Absolute 1.7 10 3/mcL High 0.1-1.4 [facility] ([place]) Comment on above: Performed By: #### A CAROLEE, LIP, ADIFF, CBC, CMP, MDW, GFR ####[place] [address] .Auto DiffOrdered By: SYSTEM SYSTEM on 10-16-2023 Basophils/100 WBC (Bld) 0.7 % Normal 0.0-2.5 AH Workflow SS Comment on above: Performed By: #### A CAROLEE, LIP, ADIFF, CBC, CMP, MDW, GFR ####[address] [address] Eosinophils/100 WBC (Bld) 1.2 % Normal 0.0-6.0 AH Workflow SS Comment on above: Performed By: #### A CAROLEE, LIP, ADIFF, CBC, CMP, MDW, GFR ####[address] [address] Lymphocytes/100 WBC (Bld) 23.9 % Normal 20.0-40.0 AH Workflow SS Comment on above: Performed By: #### A CAROLEE, LIP, ADIFF, CBC, CMP, MDW, GFR ####[address] [address] Monocytes/100 WBC (Bld) 9.5 % Normal 2.0-13.0 AH Workflow SS Comment on above: Performed By: #### A CAROLEE, LIP, ADIFF, CBC, CMP, MDW, GFR ####[address] [address] Neutrophils/100 WBC (Bld) 64.7 % Normal 50.0-75.0 AH Workflow SS Comment on above: Performed By: #### A CAROLEE, LIP, ADIFF, CBC, CMP, MDW, GFR ####[address] [address] .GFRon 10-16-2023 GFR Non- >60 Normal [facility] ([place]) Comment on above: Result Comment: GFR Population mean for , Non- Americans Ages 20-29 = 116 mL/min/1.73 sq.m. Ages 30-39 = 107 mL/min/1.73 sq.m. Ages 40-49 = 99 mL/min/1.73 sq.m. Ages 50-59 = 93 mL/min/1.73 sq.m. Ages 60-69 = 85 mL/min/1.73 sq.m. Ages 70+ = 75 mL/min/1.73 sq.m. Chronic Kidney Disease: Less than 60 mL/min/1.73 square meters End Stage Renal Disease: Less than 15 mL/min/1.73 square meters Performed By: #### U AMIC, UA #### [place] [id number] GFR >60 Normal [facility] ([place]) Comment on above: Result Comment: GFR Population mean for , Non- Americans Ages 20-29 = 116 mL/min/1.73 sq.m. Ages 30-39 = 107 mL/min/1.73 sq.m. Ages 40-49 = 99 mL/min/1.73 sq.m. Ages 50-59 = 93 mL/min/1.73 sq.m. Ages 60-69 = 85 mL/min/1.73 sq.m. Ages 70+ = 75 mL/min/1.73 sq.m. Chronic Kidney Disease: Less than 60 mL/min/1.73 square meters End Stage Renal Disease: Less than 15 mL/min/1.73 square meters Performed By: #### U NYASIA UA #### [place] [address] .MDWon 10-16-2023 Monocyte Distribution Width 20.51 High 0.00-20.00 [facility] ([place]) Comment on above: Result Comment: For adults in ED, MDW>20.0 may be associated with a higher risk of sepsis during the first 12hrs of hospital admission Performed By: #### A CAROLEE, LIP, ADIFF, CBC, CMP, MDW, GFR ####[place] [address] .NEUABSon 10-16-2023 Neutrophil, Absolute 11.5 10 3/mcL High 2.3-8.1 A [facility] ([place]) Comment on above: Performed By: #### A CAROLEE, LIP, ADIFF, CBC, CMP, MDW, GFR ####[place] [address] CBCon 10-16-2023 Hgb 13.9 G/dL Normal 12.0-16.0 [facility] ([place] Comment on above: Performed By: #### A CAROLEE, LIP, ADIFF, CBC, CMP, MDW, GFR ####[place] [address] Platelet 307 10 3/mcL Normal 150-450 [facility] ([place]) Comment on above: Performed By: #### A CAROLEE, LIP, ADIFF, CBC, CMP, MDW, GFR ####[place] [address] RBC 4.27 10 6/mcL Normal 4.10-5.30 [facility] ([place]) Comment on above: Performed By: #### A CAROLEE, LIP, ADIFF, CBC, CMP, MDW, GFR ####[place] [address] WBC 17.8 10 3/mcL High 4.5-10.8 [facility] ([place]) Comment on above: Performed By: #### A CAROLEE, LIP, ADIFF, CBC, CMP, MDW, GFR ####[place] [address] CBCOrdered By: SYSTEM SYSTEM on 10-16-2023 Erythrocyte distribution width (RBC) [Ratio] 13.5 % Normal 11.5-15.5 AH Workflow SS Comment on above: Performed By: #### A CAROLEE, LIP, ADIFF, CBC, CMP, MDW, GFR ####[place] [address] Hematocrit (Bld) [Volume fraction] 39.7 % Normal 34.0-46.0 AH Workflow SS Comment on above: Performed By: #### A CAROLEE, LIP, ADIFF, CBC, CMP, MDW, GFR ####[place] [address] MCH (RBC) [Entitic mass] 32.6 pg Normal 27.0-33.0 AH Workflow SS Comment on above: Performed By: #### A CAROLEE, LIP, ADIFF, CBC, CMP, MDW, GFR ####[place] [address] MCHC 35.1 G/dL Normal 32.0-36.0 AH Workflow SS Comment on above: Performed By: #### A CAROLEE, LIP, ADIFF, CBC, CMP, MDW, GFR ####[address] [address] MCV (RBC) [Entitic vol] 93.0 fL Normal 80.0-99.0 Workflow SS Comment on above: Performed By: #### A CAROLEE, LIP, ADIFF, CBC, CMP, MDW, GFR ####[place] [address] Platelet mean volume (Bld) [Entitic vol] 8.4 fL Normal 6.6-10.5 Workflow SS Comment on above: Performed By: #### A CAROLEE, LIP, ADIFF, CBC, CMP, MDW, GFR ####[place] [address] CMPon 10-16-2023 Albumin Level 3.9 G/dL Normal 3.2-4.8 [facility] ([place]) Comment on above: Performed By: #### U AMIC, UA #### [place] [address] Albumin/Globulin [Mass ratio] 0.8 {ratio} Low 0.9-1.6 [facility] ([place]) Comment on above: Performed By: #### U AMIC, UA #### [place] [id number] ALP [Catalytic activity/Vol] 78 U/L Normal 38-126 [facility] ([place] Comment on above: Performed By: #### U AMIC, UA #### [place] [address] ALT [Catalytic activity/Vol] 33 U/L Normal 10-49 [facility] ([place] Comment on above: Performed By: #### U AMIC, UA #### [place] [id number] AST [Catalytic activity/Vol] 17 U/L Normal 8-34 [facility] ([place] Comment on above: Performed By: #### U AMIC, UA #### [place] [id number] Bili Total 0.50 mg/dL Normal 0.20-1.20 [facility] ([place]) Comment on above: Result Comment: Use of this assay is not recommended for patients undergoing treatment with eltrombopag due to the potential for falsely elevated results. Performed By: #### U AMIC, UA #### [place] [id number] BUN/Creatinine Ratio 14.3 ratio Normal 10.0-22.0 [facility] ([place] Comment on above: Performed By: #### U AMIC, UA #### [place] [id number] Calcium [Mass/Vol] 9.7 mg/dL Normal 8.7-10.4 [facility] ([place]) Comment on above: Performed By: #### U AMIC, UA #### [place] [id number] Chloride [Moles/Vol] 102 mmol/L Normal 98-110 [facility] ([place] Comment on above: Performed By: #### U AMIC, UA #### [place] [address] CO2 [Moles/Vol] 28 mmol/L Normal 22-32 [facility] ([place] Comment on above: Performed By: #### U AMIC, UA #### [place] [address] Creatinine [Mass/Vol] 0.70 mg/dL Normal 0.50-1.20 [facility] ([place] Comment on above: Performed By: #### U AMIC, UA #### [place] [address] Electrolyte Balance 7.0 mEq/L Normal 4.0-15.0 [facility] ([place]) Comment on above: Performed By: #### U AMIC, UA #### [address] [address] Globulin 4.6 G/dL High 1.5-3.8 [facility] ([place] Comment on above: Performed By: #### U AMIC, UA #### [place] [id number] Glucose [Mass/Vol] 105 mg/dL Normal 70-110 [facility] ([place]) Comment on above: Performed By: #### U AMIC, UA #### [facility] [address] [place] [address] Potassium [Moles/Vol] 3.6 mmol/L Normal 3.5-5.0 [facility] ([place]) Comment on above: Performed By: #### U AMIC, UA #### [facility] [address] [place] [address] Sodium [Moles/Vol] 137 mmol/L Normal 136-145 [facility] ([place]) Comment on above: Performed By: #### U AMIC, UA #### [facility] [address] [place] [address] Total Protein 8.5 G/dL High 5.7-8.2 [facility] ([place]) Comment on above: Result Comment: No te - New Reference Range in effect 20 Performed By: #### U AMIC, UA #### [address] [address] Urea nitrogen [Mass/Vol] 10.0 mg/dL Normal 8.0-22.0 [facility] ([place] Comment on above: Performed By: #### U AMIC, UA #### [address] [address] [address] ABD/PELVIS W/ IV CONTRAST ONLYon 10-16-2023 CT ABD/PELVIS W/ IV CONTRAST ONLY ORIGINAL EXAMINATION: CT OF THE ABDOMEN AND PELVIS WITH CONTRAST10/16/2023 6:29 am COMPARISON: None. HISTORY: ORDERING SYSTEM PROVIDED HISTORY: Reason for Exam: PT C/O ABD PAIN LLQ PAIN RADIATING TO BACK N/V KNOWN ULCERATIVE COLITIS CHRONIC DIARRHEA CONSTIPATION abdominal pain, FINDINGS: The included lung bases are clear. There is no visible pleural or pericardial effusion. The heart is normal in size. The liver, spleen, adrenal glands, and pancreas are within normal limits. The gallbladder is unremarkable. Symmetric nephrograms. No hydronephrosis. The ureters are normal in course and caliber. Suspected mild wall thickening and inflammatory change noted adjacent to the urinary bladder suspicious for an infectious or inflammatory cystitis. Mild prominence of the right ureter with subtle adjacent haziness could represent a mild ascending ureteritis, a no definite inflammatory change of the left ureter is identified. The large and small bowel demonstrate no obstruction. The appendix is normal. No free intraperitoneal fluid or gas is identified. The aorta is normal in caliber. No abdominopelvic lymphadenopathy. There is no acute fracture or aggressive osseous lesion. Mild degenerative changes are present in the spine. No acute soft tissue abnormality. Small fat containing umbilical hernia. IMPRESSION: Wall thickening and inflammatory change suspected adjacent to the urinary bladder, suspicious for an infectious or inflammatory cystitis. Mild haziness and prominence of the ureter on the right could represent an infectious or inflammatory ascending ureteritis. Preliminary Report was Dictated by a Resident Interpreted by: Trevon Chinchilla MD Preliminary Report By: Tania Soliman Electronically signed By Trevon Chinchilla MD Dictated Date: 10/16/2023 6:36:10 AM Prelim Date: 10/16/2023 6:41:20 AM Sign Date: 10/16/2023 7:12:03 AM Ordering Provider: SAMM Pastor [facility] ([place]) LABORATORYOrdered By: Asher Lira on 10-16-2023 Beta HCG ( test) Ql (U) Negative (10/16/23 7:06 AM) [facility] Work Phone: LABORATORYOrdered By: Jil Wilson on 10-16-2023 Appearance (U) Cloudy *ABN* (10/16/23 6:40 AM) Invalid Interpretation Code Clear AH Auto Urine SS Bacteria LM.HPF (Urine sed) [#/Area] 1 /[HPF] Invalid Interpretation Code Negative AH Auto Urine SS Bilirubin Ql (U) Negative (10/16/23 6:40 AM) Normal Neg-Trace AH Auto Urine SS Color (U) Yellow (10/16/23 6:40 AM) Normal AH Auto Urine SS Glucose Test strip (U) [Mass/Vol] Negative Normal Negative AH Auto Urine SS Hemoglobin Auto test strip (U) [Mass/Vol] Small *ABN* (10/16/23 6:40 AM) Invalid Interpretation Code Neg-Trace AH Auto Urine SS Ketones Ql (U) Negative Normal Neg-Trace AH Auto Urine SS UA Leuk Est Large *ABN* (10/16/23 6:40 AM) Invalid Interpretation Code Negative AH Auto Urine SS UA Mucous 2+ /HPF Normal AH Auto Urine SS UA Nitrite Positive *ABN* (10/16/23 6:40 AM) Invalid Interpretation Code Negative AH Auto Urine SS UA pH 6.5 (10/16/23 6:40 AM) Normal 5.0 - 8.0 AH Auto Urine SS UA Protein 30 mg/dL Normal Negative AH Auto Urine SS UA RBC 3-5 /HPF Invalid Interpretation Code 0-2 AH Auto Urine SS UA Spec Grav 1.020 (10/16/23 6:40 AM) Normal 1.006-1.029 AH Auto Urine SS UA Specimen Type Clean Catch (10/16/23 6:40 AM) Normal AH Auto Urine SS UA Squam Epithelial 0-2 /HPF Normal 0-20 AH Au to Urine SS UA Urobilinogen 0.2 E.U./dL Normal 0.2-1.0 AH Auto Urine SS WBC LM.HPF (Urine sed) [#/Area] 25-50 /HPF Invalid Interpretation Code 0-5 AH Auto Urine SS LABORATORYOrdered By: SYSTEM SYSTEM on 10-16-2023 Albumin BCP dye [Mass/Vol] 3.9 G/dL Normal 3.2 - 4.8 G/dL AH ADM SS Albumin/Globulin [Mass ratio] 0.8 {ratio} Low 0.9 - 1.6 ratio AH ADM SS ALP [Catalytic activity/Vol] 78 U/L Normal 38 - 126 U/L AH ADM SS ALT No additional P-5'-P [Catalytic activity/Vol] 33 U/L Normal 10 - 49 U/L AH ADM SS AST [Catalytic activity/Vol] 17 U/L Normal 8 - 34 U/L AH ADM SS Basophils (Bld) [#/Vol] 0.1 103/mcL Normal 0.0 - 0.3 10^3/mcL AH Workflow SS Bilirubin [Mass/Vol] 0.50 mg/dL Normal 0.20 - 1.20 mg/dL AH ADM SS Comment on above: Interpretive Data: U se of this assay is not recommended for patients undergoing treatment with eltrombopag due to the potential for falsely elevated results. Calcium [Mass/Vol] 9.7 mg/dL Normal 8.7 - 10. 4 mg/dL AH ADM SS Chloride [Moles/Vol] 102 mmol/L Normal 98 - 11 0 mEq/L AH ADM SS CO2 [Moles/Vol] 28 mmol/L Normal 22 - 32 mEq/L AH ADM SS Creatinine [Mass/Vol] 0.70 mg/dL Normal 0.50 - 1.20 mg/dL [facility] SS Electrolyte Balance 7.0 mEq/L Normal 4.0 - 15 .0 mEq/L [facility] Eosinophils (Bld) [#/Vol] 0.2 103/mcL Normal 0.0 - 0.7 10^3/mcL Workflow SS GFR/1.73 sq M.predicted among blacks MDRD (S/P/Bld) [Vol rate/Area] ml/min/1.73sqm Invalid Interpretation Code [facility] Comment on above: Interpretive Data: GFR Population mean for , Non- Americans Ages 20-29 = 116 mL/min/1.73 sq.m. Ages 30-39 = 107 mL/min/1.73 sq.m. Ages 40-49 = 99 mL/min/1.73 sq.m. Ages 50-59 = 93 mL/min/1.73 sq.m. Ages 60-69 = 85 mL/min/1.73 sq.m. Ages 70+ = 75 mL/min/1.73 sq.m. Chronic Kidney Disease: Less than 60 mL/min/1.73 square meters End Stage Renal Disease: Less than 15 mL/min/1.73 square meters GFR/1.73 sq M.predicted among non-blacks MDRD (S/P/Bld) [Vol rate/Area] ml/min/1.73sqm Invalid Interpretation Code ADM Comment on above: Interpretive Data: GFR Population mean for , Non- Americans Ages 20-29 = 116 mL/min/1.73 sq.m. Ages 30-39 = 107 mL/min/1.73 sq.m. Ages 40-49 = 99 mL/min/1.73 sq.m. Ages 50-59 = 93 mL/min/1.73 sq.m. Ages 60-69 = 85 mL/min/1.73 sq.m. Ages 70+ = 75 mL/min/1.73 sq.m. Chronic Kidney Disease: Less than 60 mL/min/1.73 square meters End Stage Renal Disease: Less than 15 mL/min/1.73 square meters Globulin 4.6 G/dL High 1.5 - 3.8 G/dL [facility] Glucose [Mass/Vol] 105 mg/dL Normal 70 - 110 mg/dL ADM SS Hemoglobin (Bld) [Mass/Vol] 13.9 G/dL Normal 12.0 - 16.0 G/dL AH Workflow SS Lipase [Catalytic activity/Vol] 24 U/L Normal 12 - 53 U/L ADM SS Comment on above: Interpretive Data: * *Note - New Reference Range in effect 20 Lymphocytes (Bld) [#/Vol] 4.2 103/mcL Normal 0.9 - 4.3 10^3/mcL Workflow SS Monocyte distribution width Auto (Bld) [Entitic vol] 20.51 1 High 0.00 - 20.00 Workflow SS Comment on above: Result Comment: For adults in ED, MDW>20.0 may be associated with a higher risk of sepsis during the first 12hrs of hospital admission Monocytes (Bld) [#/Vol] 1.7 103/mcL High 0.1 - 1.4 10^3/mcL Workflow SS Neutrophils (Bld) [#/Vol] 11.5 103/mcL High 2.3 - 8.1 10^3/mcL Workflow SS Platelets (Bld) [#/Vol] 307 103/mcL Normal 150 - 450 10^3/mcL AH Workflow SS Potassium [Moles/Vol] 3.6 mmol/L Normal 3.5 - 5.0 mEq/L ADM SS Protein [Mass/Vol] 8.5 G/dL High 5.7 - 8.2 G/dL ADM SS Comment on above: Interpretive Data: * *Note - New Reference Range in effect 20 RBC (Bld) [#/Vol] 4.27 106/mcL Normal 4.10 - 5.3 0 10^6/mcL Workflow SS Sodium [Moles/Vol] 137 mmol/L Normal 136 - 145 mEq/L ADM SS Urea nitrogen [Mass/Vol] 10.0 mg/dL Normal 8.0 - 22.0 mg/dL ADM SS Urea nitrogen/Creatinine [Mass ratio] 14.3 ratio Normal 10.0 - 22.0 ratio ADM SS WBC (Bld) [#/Vol] 17.8 103/mcL High 4.5 - 10.8 10^3/mcL Workflow SS LIPon 10-16-2023 Lipase Level 24 U/L Normal 12-53 [facility] ([place]) Comment on above: Result Comment: No te - New Reference Range in effect 20 Performed By: #### U AMIC, UA #### [facility] [address] [place] [address] UAon 10-16-2023 Color (U) Yellow Normal [facility] ([place]) Comment on above: Performed By: #### U AMIC, UA #### [place] [address] Glucose (U) [Mass/Vol] Negative Normal Negative [facility] ([place] Comment on above: Performed By: #### U AMIC, UA #### [place] [address] Ketones Ql (U) Negative Normal Neg-Trace [facility] ([place] Comment on above: Performed By: #### U AMIC, UA #### [place] [address] UA Appear Cloudy Abnormal Clear [facility] ([place] Comment on above: Performed By: #### U AMIC, UA #### [place] [address] UA Blood Small Abnormal Neg-Trace [facility] ([place] Comment on above: Performed By: #### U AMIC, UA #### [address] [address] UA Leuk Est Large Abnormal Negative [facility] ([place] Comment on above: Performed By: #### U AMIC, UA #### [address] [address] UA Nitrite Positive Abnormal Negative [facility] ([place] Comment on above: Performed By: #### U AMIC, UA #### [place] [id number] UA pH 6.5 Normal 5.0 - 8.0 [facility] ([place] Comment on above: Performed By: #### U AMIC, UA #### [place] [address] UA Protein 30 mg/dL Normal Negative [facility] ([place] Comment on above: Performed By: #### U AMIC, UA #### [place] [address] UA Spec Grav 1.020 Normal 1.006-1.029 [facility] ([place] Comment on above: Performed By: #### U AMIC, UA #### [place] [address] UA Specimen Type Clean Catch Normal [facility] ([place] Comment on above: Performed By: #### U AMIC, UA #### [place] [address] UA Urobilinogen 0.2 E.U./dL Normal 0.2-1.0 [facility] ([place] Comment on above: Performed By: #### U AMIC, UA #### [place] [address] Urobilinogen (U) [Mass/Vol] Negative Normal Neg-Trace [facility] ([place] Comment on above: Performed By: #### U AMIC, UA #### [place] [address] UAMICon 10-16-2023 UA Bacteria 1+ /hpf Abnormal Negative [facility] ([place] Comment on above: Performed By: #### U AMIC, UA #### [place] [address] UA Mucous 2+ /hpf Normal [facility] ([place] Comment on above: Performed By: #### U AMIC, UA #### [place] [address] UA RBC 3-5 Abnormal 0-2 [facility] ([place] Comment on above: Performed By: #### U AMIC, UA #### [place] [address] UA Squam Epithelial 0-2 Normal 0-20 [facility] ([place]) Comment on above: Performed By: #### U AMIC, UA #### [place] [address] UA WBC 25-50 Abnormal 0-5 [facility] ([place] Comment on above: Performed By: #### U [facility], UA #### [facility] [address] [place], [place] [address] [facility] LCon 10-09-2023 Order Number [id number] Normal [facility] ([place]) Comment on above: Order Comment: sunitha mumab anti adalimumab ab sent to [id number] / [id number] Performed By: #### 9 [address] ####[address] [place], [place] [address] LC Test Name adalimumab antibody Normal [facility] ([place] Comment on above: Order Comment: sunitha mumab anti adalimumab ab sent to [id number] / [id number] Performed By: #### 9 [address]5597 ####[address] [place], [place] [address] [facility] COMMENT Normal [facility] ([place] Comment on above: Order Comment: sunitha mumab anti adalimumab ab sent to [id number] / [id number] Result Comment: Test Ordered: [id number] Adalimumab Drug + Antibody Adalimumab Drug Level 4.8 ug/mL ES Quantitation Limit: <0.6 ug/mL Results of 0.6 or higher indicate detection of adalimumab. Comments: - The optimal drug concentration depends upon patient- specific factors including the disease and desired therapeutic endpoint. - Maintenance trough concentrations >=7.5 may correspond to higher remission rates.(1) - Mucosal healing may be more likely in patients with maintenance trough levels >8.14.(2) - In rheumatoid arthritis, trough levels of 5-8 are associated with clinical (EULAR) response.(3) - This assay measures the antibody-unbound (free) fraction of adalimumab when serum anti-adalimumab antibodies are present. Anti-Adalimumab Antibody 27 ng/mL ES Interpretation: The above result is a LOW Antibody titer Quantitation Limit: <25 ng/mL. Results of 25 or higher indicate detection of anti- adalimumab antibodies. 25 - 100 ng/mL: LOW titer 101 - 300 ng/mL: INTERMEDIATE titer 301 or greater ng/mL: HIGH titer Comments: - Anti-drug antibody levels should be interpreted in the context of the concomitant free drug trough concentration. - Low anti-drug antibodies may be transient while high titers are likely to be more consequential.(4-6) - Some immunogenicity is reversible. Elimination of intermediate titer (and even some high titer) anti-adalimumab antibodies has been achieved with dose escalation and/or methotrexate or 6-MP.(7) - This anti-adalimumab antibody assay is drug tolerant, and all positive results are verified for anti-drug specificity by a confirmatory test. References: 1. Aide Chi, et al. AGA Review on TDM in IBD. Gastroenterol 2017;153:835-857. 2. Sherrie Murry et al. J Crohns Col 2016;10(5):510-515. 3. Pouw MF, et al. Jerilyn Rheum Dis 2015;74:513-518. 4. Renas GM, et al. JONAH 2011;305(14):0845-6126. 5. Robert C, et al. J Clin Gastroenterol 2016; 50:482-489. 6. Yanai H, et al. Clin Gastroenterol Hepatol 2015; 13(3):522-530. 7. Nupur Rivers, et al. Gastroenterol 2019;156(6):S-617. These tests were developed and their performance characteristics determined by [facility]. They have not been cleared or approved by the Food and Drug Administration. However, these electrochemiluminescence immunoassay (ECLIA) measurements of adalimumab and anti-adalimumab antibody (constituting DoseASSURE ADL) have been developed and validated in accordance with CLIA (Clinical Laboratory Improvement Amendments) and the FDA Guidance document, Assay Development and Validation for Immunogenicity Testing of Therapeutic Protein Products (2019). Performed At: [facility] [address] [place], [place] [id number] Kristine Fan PhD Ph:[phone] Performed At: [facility] [address] [place], [place] [id number] Boston Guerra MD Ph:[phone] Performed By: #### 9 [address] ####[address] [place], [place] [address] CALPROon 10-02-2023 Calprotectin Interp Elevated Abnormal Normal [facility] ([place]) Comment on above: Result Comment: On 2022, [facility] implemented a new fecal calprotectin method, the [employer] Calprotectin assay. For assistance with interpretation of results in patients undergoing serial monitoring, contact Client Services at [phone] or [phone] to discuss options, preferably within 7 days of issuing this report. Interpretation: <50.0 ug/g: Normal 50.0 ug/g - 120.0 ug/g: Borderline elevated. Re-evaluation in 4-6 weeks is recommended if clinically indicated. >120.0 ug/g: Elevated Performed By: [place] [id number] [place] [address] Stunner: Stuart Woodall III, M.D. CLIA#: [id number] Performed By: #### C NIC ####[address] [place], [place] [address] Calprotectin, Fecal Quantitative 863 ug/g High <50 [facility] ([place]) Comment on above: Result Comment: Perf ormed By: [facility] [place] [id number] Stunner: Stuart Woodall III, M.D. CLIA#: [id number] Performed By: #### C NIC ####[address] [place], [place] [address] .Auto Diffon 09-29-2023 Basophil, Absolute 0.1 10 3/mcL Normal 0.0-0.2 [facility] ([place] Comment on above: Performed By: #### A CAROLEE, CRP, GFR, LD, ESR, CMP, CBC, ADIFF #### [address] [address] #### HBSAB #### [facility] [address] [place] [address] Basophils/100 WBC (Bld) 1.0 % Normal 0.0-2.5 [facility] ([place] Comment on above: Performed By: #### A CAROLEE, CRP, GFR, LD, ESR, CMP, CBC, ADIFF #### [address] [address] #### HBSAB #### [address] [address] Eosinophil, Absolute 0.3 10 3/mcL Normal 0.0-0.4 [facility] ([place] Comment on above: Performed By: #### A CAROLEE, CRP, GFR, LD, ESR, CMP, CBC, ADIFF #### [address] [address] #### HBSAB #### [address] [address] Eosinophils/100 WBC (Bld) 2.7 % Normal 0.0-7.0 [facility] ([place]) Comment on above: Performed By: #### A CAROLEE, CRP, GFR, LD, ESR, CMP, CBC, ADIFF #### [place] [address] #### HBSAB #### [address] [address] Lymphocyte, Absolute 3.0 10 3/mcL Normal 0.8-3.9 [facility] ([place] Comment on above: Performed By: #### A CAROLEE, CRP, GFR, LD, ESR, CMP, CBC, ADIFF #### [place] [address] #### HBSAB #### [address] [address] Lymphocytes/100 WBC (Bld) 31.0 % Normal 10.0-50.0 [facility] ([place] Comment on above: Performed By: #### A CAROLEE, CRP, GFR, LD, ESR, CMP, CBC, ADIFF #### [place] [address] #### HBSAB #### [address] [address] Monocyte, Absolute 0.8 10 3/mcL Normal 0.2-1.0 [facility] ([place] Comment on above: Performed By: #### A CAROLEE, CRP, GFR, LD, ESR, CMP, CBC, ADIFF #### [place] [address] #### HBSAB #### [address] [address] Monocytes/100 WBC (Bld) 8.6 % Normal 1.7-13.0 [facility] ([place] Comment on above: Performed By: #### A CAROLEE, CRP, GFR, LD, ESR, CMP, CBC, ADIFF #### [address] [address] #### HBSAB #### [address] [address] Neutrophils/100 WBC (Bld) 56.7 % Normal 37.0-80.0 [facility] ([place]) Comment on above: Performed By: #### A CAROLEE, CRP, GFR, LD, ESR, CMP, CBC, ADIFF #### [address] [address] #### HBSAB #### [address] [address] .GFRon 09-29-2023 GFR 101 ml/min/1.73sqm Normal [facility] ([place]) Comment on above: Result Comment: GFR Population mean for , Non- Americans Ages 20-29 = 116 mL/min/1.73 sq.m. Ages 30-39 = 107 mL/min/1.73 sq.m. Ages 40-49 = 99 mL/min/1.73 sq.m. Ages 50-59 = 93 mL/min/1.73 sq.m. Ages 60-69 = 85 mL/min/1.73 sq.m. Ages 70+ = 75 mL/min/1.73 sq.m. Chronic Kidney Disease: Less than 60 mL/min/1.73 square meters End Stage Renal Disease: Less than 15 mL/min/1.73 square meters Performed By: #### A CAROLEE, CRP, GFR, LD, ESR, CMP, CBC, ADIFF ####[address] [address]#### HBSAB ####[address] [address] GFR Non- 83 ml/min/1.73sqm Normal [facility] ([place] Comment on above: Result Comment: GFR Population mean for , Non- Americans Ages 20-29 = 116 mL/min/1.73 sq.m. Ages 30-39 = 107 mL/min/1.73 sq.m. Ages 40-49 = 99 mL/min/1.73 sq.m. Ages 50-59 = 93 mL/min/1.73 sq.m. Ages 60-69 = 85 mL/min/1.73 sq.m. Ages 70+ = 75 mL/min/1.73 sq.m. Chronic Kidney Disease: Less than 60 mL/min/1.73 square meters End Stage Renal Disease: Less than 15 mL/min/1.73 square meters Performed By: #### A CAROLEE, CRP, GFR, LD, ESR, CMP, CBC, ADIFF ####[address] [address]#### HBSAB ####[address] [address] .NEUABSon 09-29-2023 Neutrophil, Absolute 5.5 10 3/mcL Normal 2.9-6.2 [facility] ([place] Comment on above: Performed By: #### A CAROLEE, CRP, GFR, LD, ESR, CMP, CBC, ADIFF #### [place] [id number] #### HBSAB #### [address] [address] CBCon 09-29-2023 Erythrocyte distribution width (RBC) [Ratio] 13.5 % Normal 11.5-14.5 [facility] ([place] Comment on above: Performed By: #### A CAROLEE, CRP, GFR, LD, ESR, CMP, CBC, ADIFF #### [address] [address] #### HBSAB #### [address] [address] Hematocrit (Bld) [Volume fraction] 39.9 % Normal 37.0-47.0 [facility] ([place] Comment on above: Performed By: #### A CAROLEE, CRP, GFR, LD, ESR, CMP, CBC, ADIFF #### [place] [address] #### HBSAB #### [place] [address] Hgb 13.7 G/dL Normal 12.0-16.0 [facility] ([place] Comment on above: Performed By: #### A CAROLEE, CRP, GFR, LD, ESR, CMP, CBC, ADIFF #### [place] [address] #### HBSAB #### [place] [address] MCH (RBC) [Entitic mass] 30.9 pg Normal 27.0-31.2 [facility] ([place] Comment on above: Performed By: #### A CAROLEE, CRP, GFR, LD, ESR, CMP, CBC, ADIFF #### [place] [address] #### HBSAB #### [place] [address] MCHC 34.3 G/dL Normal 33.0-37.0 [facility] ([place] Comment on above: Performed By: #### A CAROLEE, CRP, GFR, LD, ESR, CMP, CBC, ADIFF #### [place] [address] #### HBSAB #### [place] [address] MCV (RBC) [Entitic vol] 90.1 fL Normal 80.0-94.0 [facility] ([place] Comment on above: Performed By: #### A CAROLEE, CRP, GFR, LD, ESR, CMP, CBC, ADIFF #### [place] [address] #### HBSAB #### [place] [address] Platelet 310 10 3/mcL Normal 130-400 [facility] ([place] Comment on above: Performed By: #### A CAROLEE, CRP, GFR, LD, ESR, CMP, CBC, ADIFF #### [place] [address] #### HBSAB #### [place] [address] Platelet mean volume (Bld) [Entitic vol] 8.8 fL Normal 7.4-10.4 [facility] ([place] Comment on above: Performed By: #### A CAROLEE, CRP, GFR, LD, ESR, CMP, CBC, ADIFF #### [place] [address] #### HBSAB #### [place] [address] RBC 4.43 10 6/mcL Normal 4.20-5.40 [facility] ([place] Comment on above: Performed By: #### A CAROLEE, CRP, GFR, LD, ESR, CMP, CBC, ADIFF #### [place] [address] #### HBSAB #### [place] [address] WBC 9.6 10 3/mcL Normal 4.6-10.8 [facility] ([place] Comment on above: Performed By: #### A CAROLEE, CRP, GFR, LD, ESR, CMP, CBC, ADIFF #### [place] [address] #### HBSAB #### [place] [address] CMPon 09-29-2023 Albumin Level 3.7 G/dL Normal 3.5-5.0 [facility] ([place] Comment on above: Performed By: #### A CAROLEE, CRP, GFR, LD, ESR, CMP, CBC, ADIFF #### [place] [address] #### HBSAB #### [place] [address] Albumin/Globulin [Mass ratio] 0.8 {ratio} Low 1.1-2.5 [facility] ([place] Comment on above: Performed By: #### A CAROLEE, CRP, GFR, LD, ESR, CMP, CBC, ADIFF #### [address] [address] #### HBSAB #### [address] [address] ALP [Catalytic activity/Vol] 79 U/L Normal 40-135 [facility] ([place] Comment on above: Performed By: #### A CAROLEE, CRP, GFR, LD, ESR, CMP, CBC, ADIFF #### [place] [address] #### HBSAB #### [address] [address] ALT [Catalytic activity/Vol] 37 U/L Normal 14-59 [facility] ([place] Comment on above: Performed By: #### A CAROLEE, CRP, GFR, LD, ESR, CMP, CBC, ADIFF #### [place] [address] #### HBSAB #### [place] [address] AST [Catalytic activity/Vol] 17 U/L Normal 10-40 [facility] ([place] Comment on above: Performed By: #### A CAROLEE, CRP, GFR, LD, ESR, CMP, CBC, ADIFF #### [place] [address] #### HBSAB #### [address] [address] Bili Total 0.5 mg/dL Normal 0.2-1.0 [facility] ([place] Comment on above: Result Comment: Use of this assay is not recommended for patients undergoing treatment with eltrombopag due to the potential for falsely elevated results. Performed By: #### A CAROLEE, CRP, GFR, LD, ESR, CMP, CBC, ADIFF #### [place] [address] #### HBSAB #### [address] [address] BUN/Creatinine Ratio 12 ratio Normal 7-27 [facility] ([place] Comment on above: Performed By: #### A CAROLEE, CRP, GFR, LD, ESR, CMP, CBC, ADIFF #### [address] [address] #### HBSAB #### [address] [address] Calcium [Mass/Vol] 9.8 mg/dL Normal 8.4-10.2 [facility] ([place]) Comment on above: Performed By: #### A CAROLEE, CRP, GFR, LD, ESR, CMP, CBC, ADIFF #### [address] [address] #### HBSAB #### [address] [address] Chloride [Moles/Vol] 102 mmol/L Normal 98-107 [facility] ([place] Comment on above: Performed By: #### A CAROLEE, CRP, GFR, LD, ESR, CMP, CBC, ADIFF #### [place] [address] #### HBSAB #### [address] [address] CO2 [Moles/Vol] 29 mmol/L Normal 22-29 [facility] ([place] Comment on above: Performed By: #### A CAROLEE, CRP, GFR, LD, ESR, CMP, CBC, ADIFF #### [address] [address] #### HBSAB #### [address] [address] Creatinine [Mass/Vol] 0.80 mg/dL Normal 0.55-1.02 [facility] ([place] Comment on above: Performed By: #### A CAROLEE, CRP, GFR, LD, ESR, CMP, CBC, ADIFF #### [address] [address] #### HBSAB #### [address] [address] Electrolyte Balance 8.0 mEq/L Normal 4.0-15.0 [facility] ([place] Comment on above: Performed By: #### A CAROLEE, CRP, GFR, LD, ESR, CMP, CBC, ADIFF #### [address] [address] #### HBSAB #### [address] [address] Globulin 4.6 G/dL Normal [facility] ([place] Comment on above: Performed By: #### A CAROLEE, CRP, GFR, LD, ESR, CMP, CBC, ADIFF #### [address] [address] #### HBSAB #### [address] [address] Glucose [Mass/Vol] 91 mg/dL Normal 70-105 [facility] ([place] Comment on above: Performed By: #### A CAROLEE, CRP, GFR, LD, ESR, CMP, CBC, ADIFF #### [address] [address] #### HBSAB #### [address] [address] Potassium [Moles/Vol] 4.5 mmol/L Normal 3.5-5.1 [facility] ([place] Comment on above: Performed By: #### A CAROLEE, CRP, GFR, LD, ESR, CMP, CBC, ADIFF #### [address] [address] #### HBSAB #### [address] [address] Sodium [Moles/Vol] 139 mmol/L Normal 136-145 [facility] ([place] Comment on above: Performed By: #### A CAROLEE, CRP, GFR, LD, ESR, CMP, CBC, ADIFF #### [address] [address] #### HBSAB #### [address] [address] Total Protein 8.3 G/dL High 6.4-8.2 [facility] ([place] Comment on above: Performed By: #### A CAROLEE, CRP, GFR, LD, ESR, CMP, CBC, ADIFF #### [address] [address] #### HBSAB #### [place] [address] Urea nitrogen [Mass/Vol] 10 mg/dL Normal 7-18 [facility] ([place] Comment on above: Performed By: #### A CAROLEE, CRP, GFR, LD, ESR, CMP, CBC, ADIFF #### [address] [address] #### HBSAB #### [place] [address] CRPon 09-29-2023 C-Reactive Protein 0.8 mg/dL High 0.0-0.3 [facility] ([place]) Comment on above: Performed By: #### A CAROLEE, CRP, GFR, LD, ESR, CMP, CBC, ADIFF #### [address] [address] #### HBSAB #### [place] [address] ESRon 09-29-2023 Erythrocyte Sed Rate 42 mm/hr High 0-20 [facility] ([place] Comment on above: Performed By: #### A CAROLEE, CRP, GFR, LD, ESR, CMP, CBC, ADIFF ####[address] [address]#### HBSAB ####[place] [address] HBSABon 09-29-2023 Hep B Surf Ab 52.4 mIU/mL Normal >=10.0 [facility] ([place] Comment on above: Result Comment: 0 to < 10.0 mIU/mL Nonreactive Patient is considered not to have protective immunity to HBV infection >/= 10.0 mIU/mL Reactive Patient is considered to have protective immunity to HBV infection. This assay is traceable to the World Health Organization (WHO) Hepatitis B Immunoglobulin 1st International Reference Preparation (1976). The accepted criteria for immunity to HBV is anti-HBs activity >/= 10.0 mIU/mL, as defined by the WHO International Reference Preparation. Performed By: #### A CAROLEE, CRP, GFR, LD, ESR, CMP, CBC, ADIFF ####[facility] [place], [place] [address]#### HBSAB ####[facility] [place] [address] LDHon 09-29-2023 LDH 183 U/L Normal 81-234 [facility] ([place] Comment on above: Performed By: #### A CAROLEE, CRP, GFR, LD, ESR, CMP, CBC, ADIFF #### [facility] [address] [place], [place] [address] #### HBSAB #### [facility] [address] [place] [address] Laboratory - Chemistry and C hemistry - challengeOrdered By: Shine Hunt on 07-30-2023 HCG ( test) Ql (U) Negative [facility] Comment on above: Very dilute urine sp ecimens, as indicated by a low specificgravity, may not contain quality assurance representative levels of hCG. If is still suspected, a first morning urinespecimen should be collected 48 hours later and tested. Erythrocyte sedimentation ra teOrdered By: El Peterson on 05-23-2023 ESR (Bld) [Velocity] 8 mm/h 0-30 [facility] No Panel InformationOrdered By: El Peterson on 05-23-2023 Miscellaneous Test See comment [facility] Comment on above: Scanned image report available in EMR Serum or plasma C reactive p rotein measurement (mass/volume)Ordered By: El Peterson on 05-23-2023 CRP [Mass/Vol] 9.01 mg/L 0.0-3.0 [facility] Comment on above: C-Reactive Protein ( CRP) provides useful information for thediagnosis, therapy and monitoring of inflammatory processesand associated diseases. For the evaluation of Relative Riskfor Cardiovascular Disease, a High Sensitivity CRP (HSCRP)should be ordered. LABORATORYOrdered By: SYSTEM SYSTEM on 03-17-2023 Albumin BCP dye [Mass/Vol] 4.0 G/dL Invalid Interpretation Code 3.5 - 5.0 G/dL AO ADM SS Albumin/Globulin [Mass ratio] 1.0 {ratio} Invalid Interpretation Code 1.1 - 2.5 ratio AO ADM SS ALP [Catalytic activity/Vol] 71 U/L Invalid Interpretation Code 40 - 135 U/L AO ADM SS ALT With P-5'-P [Catalytic activity/Vol] 37 U/L Invalid Interpretation Code 14 - 59 U/L AO ADM SS AST With P-5'-P [Catalytic activity/Vol] 19 U/L Invalid Interpretation Code 10 - 40 U/L AO ADM SS Bilirubin [Mass/Vol] 0.4 mg/dL Invalid Interpretation Code 0.2 - 1.0 mg/dL AO ADM SS Comment on above: Interpretive Data: U se of this assay is not recommended for patients undergoing treatment with eltrombopag due to the potential for falsely elevated results. Calcium [Mass/Vol] 9.4 mg/dL Invalid Interpretation Code 8.4 - 10.2 mg/dL AO ADM SS Chloride [Moles/Vol] 101 mmol/L Invalid Interpretation Code 98 - 107 mmol/L AO ADM SS CO2 [Moles/Vol] 29 mmol/L Invalid Interpretation Code 22 - 29 mmol/L AO ADM SS Creatinine [Mass/Vol] 0.89 mg/dL Invalid Interpretation Code 0.55 - 1.02 mg/dL AO ADM SS Electrolyte Balance 9.0 mEq/L Invalid Interpretation Code 4.0 - 15.0 mEq/L AO ADM SS GFR/1.73 sq M.predicted among blacks MDRD (S/P/Bld) [Vol rate/Area] 89 ml/min/1.73sqm Invalid Interpretation Code AO Chemistry S Comment on above: Interpretive Data: GFR Population mean for , Non- Americans Ages 20-29 = 116 mL/min/1.73 sq.m. Ages 30-39 = 107 mL/min/1.73 sq.m. Ages 40-49 = 99 mL/min/1.73 sq.m. Ages 50-59 = 93 mL/min/1.73 sq.m. Ages 60-69 = 85 mL/min/1.73 sq.m. Ages 70+ = 75 mL/min/1.73 sq.m. Chronic Kidney Disease: Less than 60 mL/min/1.73 square meters End Stage Renal Disease: Less than 15 mL/min/1.73 square meters GFR/1.73 sq M.predicted among non-blacks MDRD (S/P/Bld) [Vol rate/Area] 74 ml/min/1.73sqm Invalid Interpretation Code AO Chemistry S Comment on above: Interpretive Data: GFR Population mean for , Non- Americans Ages 20-29 = 116 mL/min/1.73 sq.m. Ages 30-39 = 107 mL/min/1.73 sq.m. Ages 40-49 = 99 mL/min/1.73 sq.m. Ages 50-59 = 93 mL/min/1.73 sq.m. Ages 60-69 = 85 mL/min/1.73 sq.m. Ages 70+ = 75 mL/min/1.73 sq.m. Chronic Kidney Disease: Less than 60 mL/min/1.73 square meters End Stage Renal Disease: Less than 15 mL/min/1.73 square meters Globulin 4.2 G/dL Invalid Interpretation Code AO ADM SS Glucose [Mass/Vol] 103 mg/dL Invalid Interpretation Code 70 - 105 mg/dL AO ADM SS Potassium [Moles/Vol] 4.2 mmol/L Invalid Interpretation Code 3.5 - 5.1 mmol/L AO ADM SS Protein [Mass/Vol] 8.2 G/dL Invalid Interpretation Code 6.4 - 8.2 G/dL AO ADM SS Sodium [Moles/Vol] 139 mmol/L Invalid Interpretation Code 136 - 145 mmol/L AO ADM SS Urea nitrogen [Mass/Vol] 10 mg/dL Invalid Interpretation Code 7 - 18 mg/dL AO ADM SS Urea nitrogen/Creatinine [Mass ratio] 11 ratio Invalid Interpretation Code 7 - 27 ratio AO ADM SS LABORATORYOrdered By: Sintia Woody on 03-17-2023 Cholesterol [Mass/Vol] 219 mg/dL Invalid Interpretation Code 0 - 200 mg/dL AO ADM SS Comment on above: Interpretive Data: C holesterol Reference Interval: Less than 200 Desirable 200-239 Borderline high risk 240 and above High risk Cholesterol in HDL [Mass/Vol] 49 mg/dL Invalid Interpretation Code 40 - 60 mg/dL AO ADM SS Cholesterol in LDL [Mass/Vol] 133 mg/dL Invalid Interpretation Code 0 - 130 mg/dL AO ADM SS Triglyceride [Mass/Vol] 184 mg/dL Invalid Interpretation Code 0 - 150 mg/dL AO ADM SS Comment on above: Interpretive Data: T riglyceride Reference Interval: Less than 150 Normal 150-199 Borderline high risk 200-499 High risk 500 or higher Very high risk No Panel InformationOrdered By: El Peterson on 02-28-2023 Miscellaneous Test See comment [facility] Comment on above: Scanned image report available in EMR Absolute lymphocyte countOrd ered By: El Peterson on 12-30-2022 Lymphocytes Auto (Unsp spec) [#/Vol] 3.88 10*3/uL 0.83-4.51 [facility] Basophil percentageOrdered B y: El Peterson on 12-30-2022 Basophils/100 WBC (Bld) 0.8 % 0-1 [facility] Bilirubin [Mass/Vol] 0.40 mg/dL 0.20-1.00 [facility] Comment on above: For patients on eltr ombopag therapy, use of Dimension [place] TBIL is not recommended. Chloride [Moles/Vol] 105 mmol/L 98-107 [facility] Eosinophils/100 WBC (Bld) 1.9 % 0-5 [facility] Glucose [Mass/Vol] 118 mg/dL 74-106 [facility] Comment on above: Fasting Glucose resu lt from 100 to 125 mg/dL suggests IMPAIRED HOMEOSTASIS per A.D.A. criteria. Neutrophils (Bld) [#/Vol] 5.7 10*3/uL 2.0-7.7 [facility] Neutrophils/100 WBC (Bld) 54.1 % 47-70 [facility] Potassium [Moles/Vol] 3.5 mmol/L 3.5-5.1 [facility] Protein [Mass/Vol] 7.8 g/dL 6.4-8.2 [facility] Sodium [Moles/Vol] 137 mmol/L 136-145 [facility] WBC (Bld) [#/Vol] 10.6 10*3/uL 4.4-11.0 [facility] Blood erythrocytes count (nu mber/volume)Ordered By: El Peterson on 12-30-2022 RBC (Bld) [#/Vol] 4.50 10*6/uL 4.2-5.4 [facility] Blood hemoglobin measurement (mass/volume)Ordered By: El Peterson on 12-30-2022 Hemoglobin (Bld) [Mass/Vol] 13.3 g/dL 12.0-15.0 [facility] Blood lymphocytes/100 leukoc ytesOrdered By: El Peterson on 12-30-2022 Lymphocytes/100 WBC (Bld) 36.5 % 19-41 [facility] Blood monocytes/100 leukocyt esOrdered By: El Peterson on 12-30-2022 Monocytes/100 WBC (Bld) 6.4 % 0-10 [facility] Blood platelet mean volumeOr dered By: El Peterson on 12-30-2022 Platelet mean volume (Bld) [Entitic vol] 11.0 fL 6.2-12.0 [facility] Determination of erythrocyte mean corpuscular volume (MCV)Ordered By: El Peterson on 12-30-2022 MCV (RBC) [Entitic vol] 91.3 fL 81-99 [facility] Erythrocyte sedimentation ra teOrdered By: El Peterson on 12-30-2022 ESR (Bld) [Velocity] 23 mm/h 0-30 [facility] Hematocrit Auto (Bld) [Volum e fraction]Ordered By: El Peterson on 12-30-2022 Hematocrit (Bld) [Volume fraction] 41.1 % 37-47 [facility] - Chemistry and C hemistry - challengeOrdered By: El Peterson on 12-30-2022 ALP [Catalytic activity/Vol] 82 U/L 45-117 [facility] ALT [Catalytic activity/Vol] 42 U/L 13-56 [facility] CO2 [Moles/Vol] 29.0 mmol/L 21.0-32.0 [facility] Globulin (S) [Mass/Vol] 4.2 g/dL 2.2-4.2 [facility] Urea nitrogen/Creatinine [Mass ratio] 10.6 mg/mg 10-20 [facility] - Hematology and Cell countsOrdered By: El Peterson on 12-30-2022 Erythrocyte distribution width (RBC) [Entitic vol] 43.6 fL 35.1-43.9 [facility] Erythrocyte distribution width (RBC) [Ratio] 13.0 % 11.6-14.6 [facility] Immature granulocytes/100 WBC (Bld) 0.300 % 0.0-0.9 [facility] Comment on above: IG% - Immature Granu locytes (promyelocytes, myelocytes and metamyelocytes) > 1% indicates that a LEFT SHIFT is Present. MCH (RBC) [Entitic mass] 29.6 pg 27.0-32.0 [facility] Nucleated RBC/100 WBC (Bld) [Ratio] 0 % 0-5 [facility] MCHC Auto (RBC) [Mass/Vol]Or dered By: El Peterson on 12-30-2022 MCHC (RBC) [Mass/Vol] 32.4 g/dL 32-36 [facility] No Panel InformationOrdered By: El Peterson on 12-30-2022 Estimated GFR (MDRD) Amer 100 mL/min >60 [facility] Comment on above: GFR Calc Estimated GFR (MDRD) Non-Af Amer 83 mL/min >60 [facility] Comment on above: Non- GFR Calc Miscellaneous Test See comment [facility] Comment on above: Scanned image report available in EMR Platelets bldOrdered By: Johnson Peterson on 12-30-2022 Platelets (Bld) [#/Vol] 313 10*3/uL 150-450 [facility] Qualitative QuantiFERON-TB g old in tube testOrdered By: El Peterson on 12-30-2022 M. tuberculosis tuberculin stim IFN-g Ql (Bld) 0.08 IU/mL . [facility] Serum or plasma C reactive p rotein measurement (mass/volume)Ordered By: El Peterson on 12-30-2022 CRP [Mass/Vol] 6.62 mg/L 0.0-3.0 [facility] Comment on above: C-Reactive Protein ( CRP) provides useful information for thediagnosis, therapy and monitoring of inflammatory processesand associated diseases. For the evaluation of Relative Riskfor Cardiovascular Disease, a High Sensitivity CRP (HSCRP)should be ordered. Serum or plasma albumin nomi urement (mass/volume)Ordered By: El Peterson on 12-30-2022 Albumin [Mass/Vol] 3.6 g/dL 3.2-5.0 [facility] Serum or plasma albumin/glob ulin mass ratioOrdered By: El Peterson on 12-30-2022 Albumin/Globulin [Mass ratio] 0.9 {ratio} 0.9-2.4 [facility] Serum or plasma calcium nomi urement (mass/volume)Ordered By: El Peterson on 12-30-2022 Calcium [Mass/Vol] 8.9 mg/dL 8.5-10.1 [facility] Serum or plasma creatinine m easurement (mass/volume)Ordered By: El Peterson on 12-30-2022 Creatinine [Mass/Vol] 0.85 mg/dL 0.55-1.02 [facility] Comment on above: The validity of the calculated GFR & GFRAA in patients over 70 years has not been determined. Clinical correlation is essential. Serum or plasma urea nitroge n measurement (mass/volume)Ordered By: El Peterson on 12-30-2022 Urea nitrogen [Mass/Vol] 9 mg/dL 7-18 [facility] Thin prep Papanicolaou smear with manual screeningOrdered By: El Peterson on 12-30-2022 Thin prep Papanicolaou smear with manual screening 23 U/L 15-37 [facility] Thin prep Papanicolaou smear with manual screening 3 5-15 [facility] Thin prep Papanicolaou smear with manual screening Comment . [facility] Comment on above: QuantiFERON-TB Gold Plus is a qualitative indirect test forM tuberculosis infection (including disease) and isintended for use in conjunction with risk assessment,radiography, and other medical and diagnostic evaluations.The QuantiFERON-TB Gold Plus result is determined bysubtracting the Nil value from either TB antigen (Ag)value. The Mitogen tube serves as a control for the test. Thin prep Papanicolaou smear with manual screening 0.10 IU/mL . [facility] Thin prep Papanicolaou smear with manual screening 0.03 IU/mL . [facility] Thin prep Papanicolaou smear with manual screening > 10.00 IU/mL . [facility] Thin prep Papanicolaou smear with manual screening Negative Negative [facility] Comment on above: No response to M tub erculosis antigens detected.Infection with M tuberculosis is unlikely, but high riskindividuals should be considered for additional testing(ATS/IDSA/CDC Clinical Practice Guidelines, 2017). Thereference range is an Antigen minus Nil result of <0.35IU/mL.The specimen received for QuantiFERON testing was incubatedby the ordering institution. Specific procedures outlinedin our Directory of Services and in the package insert forthe QuantiFERON Gold (In Tube) test must be followed toenable for proper stimulation of cells for the productionof interferon gamma. Chemiluminescence immunoassaymethodologyPerformed at: [facility] [id number] Director: Meng Carmona PhD, Phone: [phone] No Panel Informationon 12-21 Culture Urine 10,000 - 50,000 cfu/ ml Multiple bacterial morphotypes present. Probable Contamination. Suggest recollection if clinically indicated. [facility] Work Phone: No Panel Informationon 09-27 Vitamin D 25-Hydroxy 25.1 ng/mL [facility] Comment on above: Vitamin D 25(OH) Sta tus Range Deficiency <20 ng/mL (50nmol/L) Insufficiency 20 - 30 ng/mL (50 - 75 nmol/L) Sufficiency 30 - 100 ng/mL (75 - 250 nmol/L) Toxicity >100 ng/mL (>250 nmol/L) LABORATORYOrdered By: SYSTEM SYSTEM on 08-16-2022 E2 [Mass/Vol] 88.46 pg/mL Invalid Interpretation Code ADM SS Follitropin Qn 5.1 m[IU]/mL Invalid Interpretation Code ADM SS Insulin Qn 23.18 munit/L Invalid Interpretation Code 2.60 - 37.60 mU/L ADM SS Lutropin Qn 5.4 m[IU]/mL Invalid Interpretation Code ADM SS Prolactin [Mass/Vol] 8.2 ng/mL Invalid Interpretation Code 2.0 - 30.0 ng/mL ADM SS TSH Qn 0.75 m[IU]/L Invalid Interpretation Code 0.36 - 3.74 mcIU/mL ADM SS Absolute lymphocyte countOrd ered By: El Peterson on 07-05-2022 Lymphocytes Auto (Unsp spec) [#/Vol] 4.40 10*3/uL 0.83-4.51 [facility] Basophil percentageOrdered B y: El Peterson on 07-05-2022 Basophils/100 WBC (Bld) 0.5 % 0-1 [facility] Bilirubin [Mass/Vol] 0.20 mg/dL 0.20-1.00 [facility] Comment on above: For patients on eltr ombopag therapy, use of Dimension [place] TBIL is not recommended. Chloride [Moles/Vol] 101 mmol/L 98-107 [facility] Eosinophils/100 WBC (Bld) 0.9 % 0-5 [facility] Glucose [Mass/Vol] 97 mg/dL 74-106 [facility] Neutrophils (Bld) [#/Vol] 7.2 10*3/uL 2.0-7.7 [facility] Neutrophils/100 WBC (Bld) 56.2 % 47-70 [facility] Potassium [Moles/Vol] 3.4 mmol/L 3.5-5.1 [facility] Protein [Mass/Vol] 8.5 g/dL 6.4-8.2 [facility] Sodium [Moles/Vol] 136 mmol/L 136-145 [facility] WBC (Bld) [#/Vol] 12.8 10*3/uL 4.4-11.0 [facility] Blood erythrocytes count (nu mber/volume)Ordered By: El Peterson on 07-05-2022 RBC (Bld) [#/Vol] 4.67 10*6/uL 4.2-5.4 [facility] Blood hemoglobin measurement (mass/volume)Ordered By: El Peterson on 07-05-2022 Hemoglobin (Bld) [Mass/Vol] 13.3 g/dL 12.0-15.0 [facility] Blood lymphocytes/100 leukoc ytesOrdered By: El Peterson on 07-05-2022 Lymphocytes/100 WBC (Bld) 34.5 % 19-41 [facility] Blood monocytes/100 leukocyt esOrdered By: El Peterson on 07-05-2022 Monocytes/100 WBC (Bld) 7.4 % 0-10 [facility] Blood platelet mean volumeOr dered By: El Peterson on 07-05-2022 Platelet mean volume (Bld) [Entitic vol] 10.8 fL 6.2-12.0 [facility] Determination of erythrocyte mean corpuscular volume (MCV)Ordered By: El Peterson on 07-05-2022 MCV (RBC) [Entitic vol] 89.9 fL 81-99 [facility] Erythrocyte sedimentation ra teOrdered By: El Peterson on 07-05-2022 ESR (Bld) [Velocity] 21 mm/h 0-30 [facility] Hematocrit Auto (Bld) [Volum e fraction]Ordered By: Elnahid Peterson on 07-05-2022 Hematocrit (Bld) [Volume fraction] 42.0 % 37-47 [facility] - Chemistry and C hemistry - challengeOrdered By: El Peterson on 07-05-2022 ALP [Catalytic activity/Vol] 86 U/L 45-117 [facility] ALT [Catalytic activity/Vol] 57 U/L 13-56 [facility] CO2 [Moles/Vol] 31.0 mmol/L 21.0-32.0 [facility] Globulin (S) [Mass/Vol] 4.6 g/dL 2.2-4.2 [facility] Urea nitrogen/Creatinine [Mass ratio] 13.2 mg/mg 10-20 [facility] - Hematology and Cell countsOrdered By: El Peterson on 07-05-2022 Erythrocyte distribution width (RBC) [Entitic vol] 44.2 fL 35.1-43.9 [facility] Erythrocyte distribution width (RBC) [Ratio] 13.5 % 11.6-14.6 [facility] Immature granulocytes/100 WBC (Bld) 0.500 % 0.0-0.9 [facility] Comment on above: IG% - Immature Granu locytes (promyelocytes, myelocytes and metamyelocytes) > 1% indicates that a LEFT SHIFT is Present. MCH (RBC) [Entitic mass] 28.5 pg 27.0-32.0 [facility] Nucleated RBC/100 WBC (Bld) [Ratio] 0 % 0-5 [facility] MCHC Auto (RBC) [Mass/Vol]Or dered By: El Peterson on 07-05-2022 MCHC (RBC) [Mass/Vol] 31.7 g/dL 32-36 [facility] No Panel InformationOrdered By: El Peterson on 07-05-2022 Estimated GFR (MDRD) Amer 102 mL/min >60 [facility] Comment on above: GFR Calc Estimated GFR (MDRD) Non-Af Amer 84 mL/min >60 [facility] Comment on above: Non- GFR Calc Platelets bldOrdered By: Johnson Peterson on 07-05-2022 Platelets (Bld) [#/Vol] 356 10*3/uL 150-450 [facility] Serum or plasma C reactive p rotein measurement (mass/volume)Ordered By: El Peterson on 07-05-2022 CRP [Mass/Vol] 4.63 mg/L 0.0-3.0 [facility] Comment on above: C-Reactive Protein ( CRP) provides useful information for thediagnosis, therapy and monitoring of inflammatory processesand associated diseases. For the evaluation of Relative Riskfor Cardiovascular Disease, a High Sensitivity CRP (HSCRP)should be ordered. Serum or plasma albumin nomi urement (mass/volume)Ordered By: El Peterson on 07-05-2022 Albumin [Mass/Vol] 3.9 g/dL 3.2-5.0 [facility] Serum or plasma albumin/glob ulin mass ratioOrdered By: El Peterson on 07-05-2022 Albumin/Globulin [Mass ratio] 0.8 {ratio} 0.9-2.4 [facility] Serum or plasma calcium nomi urement (mass/volume)Ordered By: El Peterson on 07-05-2022 Calcium [Mass/Vol] 9.5 mg/dL 8.5-10.1 [facility] Serum or plasma creatinine m easurement (mass/volume)Ordered By: El Peterson on 07-05-2022 Creatinine [Mass/Vol] 0.84 mg/dL 0.55-1.02 [facility] Comment on above: The validity of the calculated GFR & GFRAA in patients over 70 years has not been determined. Clinical correlation is essential. Serum or plasma urea nitroge n measurement (mass/volume)Ordered By: El Peterson on 07-05-2022 Urea nitrogen [Mass/Vol] 11 mg/dL 7-18 [facility] Thin prep Papanicolaou smear with manual screeningOrdered By: El Peterson on 07-05-2022 Thin prep Papanicolaou smear with manual screening 24 U/L 15-37 [facility] Thin prep Papanicolaou smear with manual screening 4 5-15 [facility] LABORATORYOrdered By: Sirisha Bueno on 04-18-2022 Natriuretic peptide.B prohormone N-Terminal [Mass/Vol] 1427 pg/mL Invalid Interpretation Code 0 - 125 pg/mL AO ADM SS Calcium [Mass/Vol] 8.6 mg/dL Invalid Interpretation Code 8.4 - 10.2 mg/dL AO ADM SS Chloride [Moles/Vol] 100 mmol/L Invalid Interpretation Code 98 - 107 mmol/L AO ADM SS CO2 [Moles/Vol] 25 mmol/L Invalid Interpretation Code 22 - 29 mmol/L AO ADM SS Creatinine [Mass/Vol] 0.89 mg/dL Invalid Interpretation Code 0.55 - 1.02 mg/dL AO ADM SS Electrolyte Balance 11.0 mEq/L Invalid Interpretation Code 4.0 - 15.0 mEq/L AO ADM SS Fibrin D-dimer DDU (PPP) [Mass/Vol] 4837 ng/mL D-DU Invalid Interpretation Code 0 - 230 ng/mL D-DU AO Coag SS Glucose [Mass/Vol] 190 mg/dL Invalid Interpretation Code 70 - 105 mg/dL AO ADM SS Potassium [Moles/Vol] 3.5 mmol/L Invalid Interpretation Code 3.5 - 5.1 mmol/L AO ADM SS Sodium [Moles/Vol] 136 mmol/L Invalid Interpretation Code 136 - 145 mmol/L AO ADM SS Troponin I.cardiac DL <= 0.01 ng/mL [Mass/Vol] 1481.9 ng/L Invalid Interpretation Code 0.0 - 51.4 ng/L AO ADM SS Urea nitrogen [Mass/Vol] 7 mg/dL Invalid Interpretation Code 7 - 18 mg/dL AO ADM SS Urea nitrogen/Creatinine [Mass ratio] 8 ratio Invalid Interpretation Code 27 ratio AO ADM SS LABORATORYOrdered By: Yoko Freed on 04-18-2022 Basophil, Absolute 0.1 103/mcL Invalid Interpretation Code 0.0 - 0.2 10^3/mcL AO Workflow SS Basophils/100 WBC (Bld) 0.5 % Invalid Interpretation Code 0.0 - 2.5 % AO Workflow SS Eosinophil, Absolute 0.0 103/mcL Invalid Interpretation Code 0.0 - 0.4 10^3/mcL AO Workflow SS Eosinophils/100 WBC (Bld) 0.3 % Invalid Interpretation Code 0.0 - 7.0 % AO Workflow SS Erythrocyte distribution width (RBC) [Ratio] 14.2 % Invalid Interpretation Code 11.5 - 14.5 % AO Workflow SS Hematocrit (Bld) [Volume fraction] 37.0 % Invalid Interpretation Code 37.0 - 47.0 % AO Workflow SS Hemoglobin (Bld) [Mass/Vol] 12.4 G/dL Invalid Interpretation Code 12.0 - 16.0 G/dL AO Workflow SS Lymphocyte, Absolute 2.9 103/mcL Invalid Interpretation Code 0.8 - 3.9 10^3/mcL AO Workflow SS Lymphocytes/100 WBC (Bld) 22.8 % Invalid Interpretation Code 10.0 - 50.0 % AO Workflow SS MCH (RBC) [Entitic mass] 29.0 pg Invalid Interpretation Code 27.0 - 31.2 pg AO Workflow SS MCHC 33.5 G/dL Invalid Interpretation Code 33.0 - 37.0 G/dL AO Workflow SS MCV (RBC) [Entitic vol] 86.5 fL Invalid Interpretation Code 80.0 - 94.0 fL AO Workflow SS Monocyte distribution width Auto (Bld) [Entitic vol] 20.39 Invalid Interpretation Code 0.00 - 20.00 AO Workflow SS Comment on above: Result Comment: For adults in ED, MDW>20.0 may be associated with a higher risk of sepsis during the first 12hrs of hospital admission Monocyte, Absolute 1.0 103/mcL Invalid Interpretation Code 0.2 - 1.0 10^3/mcL AO Workflow SS Monocytes/100 WBC (Bld) 8.0 % Invalid Interpretation Code 1.7 - 13.0 % AO Workflow SS Neutrophil, Absolute 8.6 103/mcL Invalid Interpretation Code 2.9 - 6.2 10^3/mcL AO Workflow SS Neutrophils/100 WBC (Bld) 68.4 % Invalid Interpretation Code 37.0 - 80.0 % AO Workflow SS Platelet mean volume (Bld) [Entitic vol] 8.7 fL Invalid Interpretation Code 7.4 - 10.4 fL AO Workflow SS Platelets (Bld) [#/Vol] 210 103/mcL Invalid Interpretation Code 130 - 400 10^3/mcL AO Workflow SS RBC (Bld) [#/Vol] 4.28 106/mcL Invalid Interpretation Code 4.20 - 5.40 10^6/mcL AO Workflow SS WBC (Bld) [#/Vol] 12.6 103/mcL Invalid Interpretation Code 4.6 - 10.8 10^3/mcL AO Workflow SS LABORATORYOrdered By: SYSTEM SYSTEM on 04-18-2022 GFR 90 ml/min/1.73sqm Invalid Interpretation Code AO Chemistry S GFR Non- 74 ml/min/1.73sqm Invalid Interpretation Code AO Chemistry S LABORATORYOrdered By: Palmira Anthony on 03-29-2022 Albumin BCP dye [Mass/Vol] 3.2 G/dL Invalid Interpretation Code 3.5 - 5.0 G/dL AO ADM SS Albumin/Globulin [Mass ratio] 0.7 {ratio} Invalid Interpretation Code 1.1 - 2.5 ratio AO ADM SS ALP [Catalytic activity/Vol] 85 U/L Invalid Interpretation Code 40 - 135 U/L AO ADM SS ALT With P-5'-P [Catalytic activity/Vol] 20 U/L Invalid Interpretation Code 14 - 59 U/L AO ADM SS AST With P-5'-P [Catalytic activity/Vol] 17 U/L Invalid Interpretation Code 10 - 40 U/L AO ADM SS Basophil, Absolute 0.0 103/mcL Invalid Interpretation Code 0.0 - 0.2 10^3/mcL AO Workflow SS Basophils/100 WBC (Bld) 0.6 % Invalid Interpretation Code 0.0 - 2.5 % AO Workflow SS Bilirubin [Mass/Vol] 0.3 mg/dL Invalid Interpretation Code 0.2 - 1.0 mg/dL AO ADM SS Calcium [Mass/Vol] 9.0 mg/dL Invalid Interpretation Code 8.4 - 10.2 mg/dL AO ADM SS Chloride [Moles/Vol] 102 mmol/L Invalid Interpretation Code 98 - 107 mmol/L AO ADM SS CO2 [Moles/Vol] 27 mmol/L Invalid Interpretation Code 22 - 29 mmol/L AO ADM SS Creatinine [Mass/Vol] 0.88 mg/dL Invalid Interpretation Code 0.55 - 1.02 mg/dL AO ADM SS Electrolyte Balance 10.0 mEq/L Invalid Interpretation Code 4.0 - 15.0 mEq/L AO ADM SS Eosinophil, Absolute 0.1 103/mcL Invalid Interpretation Code 0.0 - 0.4 10^3/mcL AO Workflow SS Eosinophils/100 WBC (Bld) 1.8 % Invalid Interpretation Code 0.0 - 7.0 % AO Workflow SS Erythrocyte distribution width (RBC) [Ratio] 13.4 % Invalid Interpretation Code 11.5 - 14.5 % AO Workflow SS Globulin 4.3 G/dL Invalid Interpretation Code AO ADM SS Glucose [Mass/Vol] 86 mg/dL Invalid Interpretation Code 70 - 105 mg/dL AO ADM SS Hematocrit (Bld) [Volume fraction] 38.6 % Invalid Interpretation Code 37.0 - 47.0 % AO Workflow SS Hemoglobin (Bld) [Mass/Vol] 12.9 G/dL Invalid Interpretation Code 12.0 - 16.0 G/dL AO Workflow SS Lymphocyte, Absolute 2.8 103/mcL Invalid Interpretation Code 0.8 - 3.9 10^3/mcL AO Workflow SS Lymphocytes/100 WBC (Bld) 36.3 % Invalid Interpretation Code 10.0 - 50.0 % AO Workflow SS MCH (RBC) [Entitic mass] 28.8 pg Invalid Interpretation Code 27.0 - 31.2 pg AO Workflow SS MCHC 33.5 G/dL Invalid Interpretation Code 33.0 - 37.0 G/dL AO Workflow SS MCV (RBC) [Entitic vol] 86.2 fL Invalid Interpretation Code 80.0 - 94.0 fL AO Workflow SS Monocyte, Absolute 0.7 103/mcL Invalid Interpretation Code 0.2 - 1.0 10^3/mcL AO Workflow SS Monocytes/100 WBC (Bld) 8.8 % Invalid Interpretation Code 1.7 - 13.0 % AO Workflow SS Neutrophil, Absolute 4.1 103/mcL Invalid Interpretation Code 2.9 - 6.2 10^3/mcL AO Workflow SS Neutrophils/100 WBC (Bld) 52.5 % Invalid Interpretation Code 37.0 - 80.0 % AO Workflow SS Platelet mean volume (Bld) [Entitic vol] 9.1 fL Invalid Interpretation Code 7.4 - 10.4 fL AO Workflow SS Platelets (Bld) [#/Vol] 288 103/mcL Invalid Interpretation Code 130 - 400 10^3/mcL AO Workflow SS Potassium [Moles/Vol] 4.2 mmol/L Invalid Interpretation Code 3.5 - 5.1 mmol/L AO ADM SS Protein [Mass/Vol] 7.5 G/dL Invalid Interpretation Code 6.4 - 8.2 G/dL AO ADM SS RBC (Bld) [#/Vol] 4.48 106/mcL Invalid Interpretation Code 4.20 - 5.40 10^6/mcL AO Workflow SS Sodium [Moles/Vol] 139 mmol/L Invalid Interpretation Code 136 - 145 mmol/L AO ADM SS Urea nitrogen [Mass/Vol] 11 mg/dL Invalid Interpretation Code 7 - 18 mg/dL AO ADM SS Urea nitrogen/Creatinine [Mass ratio] 12 ratio Invalid Interpretation Code 7 - 27 ratio AO ADM SS WBC (Bld) [#/Vol] 7.8 103/mcL Invalid Interpretation Code 4.6 - 10.8 10^3/mcL AO Workflow SS LABORATORYOrdered By: SYSTEM SYSTEM on 03-29-2022 GFR 91 ml/min/1.73sqm Invalid Interpretation Code AO Chemistry S GFR Non- 75 ml/min/1.73sqm Invalid Interpretation Code AO Chemistry S Absolute lymphocyte counton 03-22-2022 Lymphocytes Auto (Unsp spec) [#/Vol] 3.21 10*3/uL 0.83-4.51 [facility] Work Phone: Basophil percentageon 2021 Basophils/100 WBC (Bld) 0.4 % 0-1 [facility] Work Phone: Bilirubin [Mass/Vol] 0.20 mg/dL 0.20-1.00 [facility] Work Phone: Comment on above: For patients on eltr ombopag therapy, use of Dimension [place] TBIL is not recommended. Chloride [Moles/Vol] 105 mmol/L 98-107 [facility] Work Phone: Eosinophils/100 WBC (Bld) 0.9 % 0-5 [facility] Work Phone: Glucose [Mass/Vol] 97 mg/dL 74-106 [facility] Work Phone: Neutrophils (Bld) [#/Vol] 5.9 10*3/uL 2.0-7.7 [facility] Work Phone: Neutrophils/100 WBC (Bld) 58.2 % 47-70 [facility] Work Phone: Potassium [Moles/Vol] 3.5 mmol/L 3.5-5.1 [facility] Work Phone: Protein [Mass/Vol] 7.8 g/dL 6.4-8.2 [facility] Work Phone: Sodium [Moles/Vol] 138 mmol/L 136-145 [facility] Work Phone: WBC (Bld) [#/Vol] 10.1 10*3/uL 4.4-11.0 [facility] Work Phone: Blood erythrocytes count (nu mber/volume)on 03-22-2022 RBC (Bld) [#/Vol] 4.30 10*6/uL 4.2-5.4 [facility] Work Phone: Blood hemoglobin measurement (mass/volume)on 03-22-2022 Hemoglobin (Bld) [Mass/Vol] 12.4 g/dL 12.0-15.0 [facility] Work Phone: Blood lymphocytes/100 leukoc yteson 03-22-2022 Lymphocytes/100 WBC (Bld) 31.8 % 19-41 [facility] Work Phone: Blood monocytes/100 leukocyt eson 03-22-2022 Monocytes/100 WBC (Bld) 8.4 % 0-10 [facility] Work Phone: Blood platelet mean volumeon 03-22-2022 Platelet mean volume (Bld) [Entitic vol] 10.9 fL 6.2-12.0 [facility] Work Phone: Determination of erythrocyte mean corpuscular volume (MCV)on 03-22-2022 MCV (RBC) [Entitic vol] 87.2 fL 81-99 [facility] Work Phone: Erythrocyte sedimentation ra winnie 03-22-2022 ESR (Bld) [Velocity] 33 mm/h 0-30 [facility] Phone: Hematocrit Auto (Bld) [Volum e fraction]on 03-22-2022 Hematocrit (Bld) [Volume fraction] 37.5 % 37-47 [facility] Work Phone: Laboratory - Chemistry and C hemistry - challengeon 03-22-2022 ALP [Catalytic activity/Vol] 74 U/L 45-117 [facility] Work Phone: ALT [Catalytic activity/Vol] 18 U/L 13-56 [facility] Work Phone: CO2 [Moles/Vol] 27.0 mmol/L 21.0-32.0 [facility] Work Phone: Globulin (S) [Mass/Vol] 4.6 g/dL 2.2-4.2 [facility] Work Phone: Urea nitrogen/Creatinine [Mass ratio] 10.5 mg/mg 10-20 [facility] Work Phone: Laboratory - Hematology and Cell countson 03-22-2022 Erythrocyte distribution width (RBC) [Entitic vol] 41.1 fL 35.1-43.9 [facility] Work Phone: Erythrocyte distribution width (RBC) [Ratio] 13.1 % 11.6-14.6 [facility] Work Phone: Immature granulocytes/100 WBC (Bld) 0.300 % 0.0-0.9 [facility] Work Phone: Comment on above: IG% - Immature Granu locytes (promyelocytes, myelocytes and metamyelocytes) > 1% indicates that a LEFT SHIFT is Present. MCH (RBC) [Entitic mass] 28.8 pg 27.0-32.0 [facility] Work Phone: Nucleated RBC/100 WBC (Bld) [Ratio] 0 % 0-5 [facility] Work Phone: MCHC Auto (RBC) [Mass/Vol]on 03-22-2022 MCHC (RBC) [Mass/Vol] 33.1 g/dL 32-36 [facility] Work Phone: No Panel Informationon 03-22 Estimated GFR (MDRD) Amer 99 mL/min >60 [facility] Work Phone: Comment on above: GFR Calc Estimated GFR (MDRD) Non-Af Amer 82 mL/min >60 [facility] Work Phone: Comment on above: Non- GFR Calc Miscellaneous Test See comment [facility] Work Phone: Comment on above: Scanned image report available in EMR Platelets bldon 03-22-2022 Platelets (Bld) [#/Vol] 301 10*3/uL 150-450 [facility] Work Phone: Serum or plasma C reactive p rotein measurement (mass/volume)on 03-22-2022 CRP [Mass/Vol] 17.20 mg/L 0.0-3.0 [facility] Work Phone: Comment on above: C-Reactive Protein ( CRP) provides useful information for thediagnosis, therapy and monitoring of inflammatory processesand associated diseases. For the evaluation of Relative Riskfor Cardiovascular Disease, a High Sensitivity CRP (HSCRP)should be ordered. Serum or plasma albumin nomi urement (mass/volume)on 03-22-2022 Albumin [Mass/Vol] 3.2 g/dL 3.2-5.0 [facility] Work Phone: Serum or plasma albumin/glob ulin mass ratioon 03-22-2022 Albumin/Globulin [Mass ratio] 0.7 {ratio} 0.9-2.4 [facility] Work Phone: Serum or plasma calcium nomi urement (mass/volume)on 03-22-2022 Calcium [Mass/Vol] 9.3 mg/dL 8.5-10.1 [facility] Work Phone: Serum or plasma creatinine m easurement (mass/volume)on 03-22-2022 Creatinine [Mass/Vol] 0.86 mg/dL 0.55-1.02 [facility] Work Phone: Comment on above: The validity of the calculated GFR & GFRAA in patients over 70 years has not been determined. Clinical correlation is essential. Serum or plasma urea nitroge n measurement (mass/volume)on 03-22-2022 Urea nitrogen [Mass/Vol] 9 mg/dL 7-18 [facility] Work Phone: Thin prep Papanicolaou smear with manual screeningon 03-22-2022 Thin prep Papanicolaou smear with manual screening 12 U/L 15-37 [facility] Work Phone: Thin prep Papanicolaou smear with manual screening 6 5-15 [facility] Work Phone: Erythrocyte sedimentation ra winnie 01-04-2022 ESR (Bld) [Velocity] 20 mm/h 0-30 [facility] Work Phone: No Panel Informationon 01-04 Miscellaneous Test See comment [facility] Work Phone: Comment on above: Scanned image report available in EMR Serum or plasma C reactive p rotein measurement (mass/volume)on 01-04-2022 CRP [Mass/Vol] 10.80 mg/L 0.0-3.0 [facility] Work Phone: Comment on above: C-Reactive Protein ( CRP) provides useful information for thediagnosis, therapy and monitoring of inflammatory processesand associated diseases. For the evaluation of Relative Riskfor Cardiovascular Disease, a High Sensitivity CRP (HSCRP)should be ordered. Absolute lymphocyte counton 12-28-2021 Lymphocytes Auto (Unsp spec) [#/Vol] 3.14 10*3/uL 0.83-4.51 [facility] Work Phone: Basophil percentageon 2021 Basophils/100 WBC (Bld) 0.6 % 0-1 [facility] Work Phone: Bilirubin [Mass/Vol] 0.30 mg/dL 0.20-1.00 [facility] Work Phone: Comment on above: For patients on eltr ombopag therapy, use of Dimension [place] TBIL is not recommended. Chloride [Moles/Vol] 105 mmol/L 98-107 [facility] Work Phone: Eosinophils/100 WBC (Bld) 1.8 % 0-5 [facility] Work Phone: Glucose [Mass/Vol] 107 mg/dL 74-106 [facility] Work Phone: Comment on above: Fasting Glucose resu lt from 100 to 125 mg/dL suggests IMPAIRED HOMEOSTASIS per A.D.A. criteria. Neutrophils (Bld) [#/Vol] 5.0 10*3/uL 2.0-7.7 [facility] Work Phone: Neutrophils/100 WBC (Bld) 54.8 % 47-70 [facility] Work Phone: Potassium [Moles/Vol] 3.5 mmol/L 3.5-5.1 [facility] Work Phone: [phone] Protein [Mass/Vol] 7.9 g/dL 6.4-8.2 [facility] Work Phone: Sodium [Moles/Vol] 138 mmol/L 136-145 [facility] Work Phone: [phone] WBC (Bld) [#/Vol] 9.1 10*3/uL 4.4-11.0 [facility] Work Phone: [phone] Blood erythrocytes count (nu mber/volume)on 12-28-2021 RBC (Bld) [#/Vol] 4.33 10*6/uL 4.2-5.4 [facility] Work Phone: Blood hemoglobin measurement (mass/volume)on 12-28-2021 Hemoglobin (Bld) [Mass/Vol] 12.1 g/dL 12.0-15.0 [facility] Work Phone: [phone] Blood lymphocytes/100 leukoc yteson 12-28-2021 Lymphocytes/100 WBC (Bld) 34.5 % 19-41 [facility] Work Phone: Blood monocytes/100 leukocyt eson 12-28-2021 Monocytes/100 WBC (Bld) 8.1 % 0-10 [facility] Work Phone: Blood platelet mean volumeon 12-28-2021 Platelet mean volume (Bld) [Entitic vol] 10.6 fL 6.2-12.0 [facility] Work Phone: [phone] Determination of erythrocyte mean corpuscular volume (MCV)on 12-28-2021 MCV (RBC) [Entitic vol] 86.1 fL 81-99 [facility] Work Phone: Hematocrit Auto (Bld) [Volum e fraction]on 12-28-2021 Hematocrit (Bld) [Volume fraction] 37.3 % 37-47 [facility] Work Phone: INR in Blood by Coagulation assayon 12-28-2021 INR Coag (Bld) [Relative time] 1.0 {INR} [facility] Work Phone: Laboratory - Chemistry and C hemistry - challengeon 12-28-2021 ALP [Catalytic activity/Vol] 78 U/L 45-117 [facility] Work Phone: ALT [Catalytic activity/Vol] 21 U/L 13-56 [facility] Work Phone: CO2 [Moles/Vol] 23.0 mmol/L 21.0-32.0 [facility] Work Phone: Globulin (S) [Mass/Vol] 4.6 g/dL 2.2-4.2 [facility] Work Phone: Urea nitrogen/Creatinine [Mass ratio] 10.5 mg/mg 10-20 [facility] Work Phone: Laboratory - Coagulationon 0 12-28-2021 PT Coag (PPP) [Time] 12.9 s 11.7-14.9 [facility] Work Phone: Laboratory - Hematology and Cell countson 12-28-2021 Erythrocyte distribution width (RBC) [Entitic vol] 42.5 fL 35.1-43.9 [facility] Work Phone: Erythrocyte distribution width (RBC) [Ratio] 13.6 % 11.6-14.6 [facility] Work Phone: Immature granulocytes/100 WBC (Bld) 0.200 % 0.0-0.9 [facility] Work Phone: Comment on above: IG% - Immature Granu locytes (promyelocytes, myelocytes and metamyelocytes) > 1% indicates that a LEFT SHIFT is Present. MCH (RBC) [Entitic mass] 27.9 pg 27.0-32.0 [facility] Work Phone: Nucleated RBC/100 WBC (Bld) [Ratio] 0 % 0-5 [facility] Work Phone: Laboratory - Microbiology an d Antimicrobial susceptibilityon 12-28-2021 SARS-CoV-2 (COVID-19) IgG Ab [Presence] in Serum or Plasma by Immunoassay See comment [facility] Work Phone: Comment on above: TEST RESULT LIMITSSA RS-CoV-2 Antibody, IgG SARS-CoV-2 Semi- Quant IgG Ab, >800.0 AU/mL Neg <13.0 SARS-CoV-2 Hayder Ab Interp, PositiveAntibodies against the SARS-CoV-2 spike protein, including the receptor binding domain (RBD) were detected. It is not yet known what level of antibody to SARS-CoV-2 spike protein correlates to immunity against developing symptomatic SARS-CoV-2 disease.This assay was performed using Sportodyison(R) SARS-CoV-2 Trimeric S IgG assay. TESTING PERFORMED AT [facility]. ORIGINAL REPORT ON FILE IN LAB CONTAINS ADDITIONAL TEST SITE INFORMATION. MCHC Auto (RBC) [Mass/Vol]on 12-28-2021 MCHC (RBC) [Mass/Vol] 32.4 g/dL 32-36 [facility] Work Phone: No Panel Informationon 12-28 Estimated GFR (MDRD) Amer 114 mL/min >60 [facility] Work Phone: Comment on above: GFR Calc Estimated GFR (MDRD) Non-Af Amer 94 mL/min >60 [facility] Work Phone: Comment on above: Non- GFR Calc Platelets bldon 12-28-2021 Platelets (Bld) [#/Vol] 340 10*3/uL 150-450 [facility] Work Phone: Serum or plasma albumin nomi urement (mass/volume)on 12-28-2021 Albumin [Mass/Vol] 3.3 g/dL 3.2-5.0 [facility] Work Phone: Serum or plasma albumin/glob ulin mass ratioon 12-28-2021 Albumin/Globulin [Mass ratio] 0.7 {ratio} 0.9-2.4 [facility] Work Phone: Serum or plasma calcium nomi urement (mass/volume)on 12-28-2021 Calcium [Mass/Vol] 9.3 mg/dL 8.5-10.1 [facility] Work Phone: Serum or plasma creatinine m easurement (mass/volume)on 12-28-2021 Creatinine [Mass/Vol] 0.76 mg/dL 0.55-1.02 [facility] Work Phone: Comment on above: The validity of the calculated GFR & GFRAA in patients over 70 years has not been determined. Clinical correlation is essential. Serum or plasma urea nitroge n measurement (mass/volume)on 12-28-2021 Urea nitrogen [Mass/Vol] 8 mg/dL 7-18 [facility] Work Phone: Thin prep Papanicolaou smear with manual screeningon 12-28-2021 Thin prep Papanicolaou smear with manual screening 14 U/L 15-37 [facility] Work Phone: Thin prep Papanicolaou smear with manual screening 10 5-15 [facility] Work Phone: No Panel Informationon 11-02 Miscellaneous Test See comment [facility] Work Phone: Comment on above: Scanned image report available in EMR No Panel Informationon 09-14 Stool Calprotectin 62 ug/g 0-120 [facility] Work Phone: Comment on above: Concentration Interp retation Follow-Up<16 - 50 ug/g Normal None>50 -120 ug/g Borderline Re-evaluate in 4-6 weeks >120 ug/g Abnormal Repeat as clinically indicatedPerformed at: - [facility] [address] [id number] Director: Selina Hobson MD, Phone: [phone] Absolute lymphocyte counton 09-07-2021 Lymphocytes Auto (Unsp spec) [#/Vol] 2.35 10*3/uL 0.83-4.51 [facility] Work Phone: Basophil percentageon 2021 Basophils/100 WBC (Bld) 0.5 % 0-1 [facility] Work Phone: Bilirubin [Mass/Vol] 0.20 mg/dL 0.20-1.00 [facility] Work Phone: Comment on above: For patients on eltr ombopag therapy, use of Dimension [place] TBIL is not recommended. Chloride [Moles/Vol] 106 mmol/L 98-107 [facility] Work Phone: Eosinophils/100 WBC (Bld) 1.0 % 0-5 [facility] Work Phone: Glucose [Mass/Vol] 124 mg/dL 74-106 [facility] Work Phone: Comment on above: Fasting Glucose resu lt from 100 to 125 mg/dL suggests IMPAIRED HOMEOSTASIS per A.D.A. criteria. Neutrophils (Bld) [#/Vol] 9.2 10*3/uL 2.0-7.7 [facility] Work Phone: Neutrophils/100 WBC (Bld) 72.9 % 47-70 [facility] Work Phone: Potassium [Moles/Vol] 3.5 mmol/L 3.5-5.1 [facility] Work Phone: Protein [Mass/Vol] 7.7 g/dL 6.4-8.2 [facility] Work Phone: Sodium [Moles/Vol] 137 mmol/L 136-145 [facility] Work Phone: WBC (Bld) [#/Vol] 12.6 10*3/uL 4.4-11.0 [facility] Work Phone: [phone] Blood erythrocytes count (nu mber/volume)on 09-07-2021 RBC (Bld) [#/Vol] 4.40 10*6/uL 4.2-5.4 [facility] Work Phone: Blood hemoglobin measurement (mass/volume)on 09-07-2021 Hemoglobin (Bld) [Mass/Vol] 12.1 g/dL 12.0-15.0 [facility] Work Phone: [phone] Blood lymphocytes/100 leukoc yteson 09-07-2021 Lymphocytes/100 WBC (Bld) 18.6 % 19-41 [facility] Work Phone: Blood monocytes/100 leukocyt eson 09-07-2021 Monocytes/100 WBC (Bld) 6.6 % 0-10 [facility] Work Phone: Blood platelet mean volumeon 09-07-2021 Platelet mean volume (Bld) [Entitic vol] 10.1 fL 6.2-12.0 [facility] Work Phone: [phone] Determination of erythrocyte mean corpuscular volume (MCV)on 09-07-2021 MCV (RBC) [Entitic vol] 85.5 fL 81-99 [facility] Work Phone: Erythrocyte sedimentation ra winnie 09-07-2021 ESR (Bld) [Velocity] 36 mm/h 0-30 [facility] Work Phone: Hematocrit Auto (Bld) [Volum e fraction]on 09-07-2021 Hematocrit (Bld) [Volume fraction] 37.6 % 37-47 [facility] Work Phone: Laboratory - Chemistry and C hemistry - challengeon 09-07-2021 ALP [Catalytic activity/Vol] 86 U/L 45-117 [facility] Work Phone: ALT [Catalytic activity/Vol] 17 U/L 13-56 [facility] Work Phone: CO2 [Moles/Vol] 23.0 mmol/L 21.0-32.0 [facility] Work Phone: Globulin (S) [Mass/Vol] 4.6 g/dL 2.2-4.2 [facility] Work Phone: Urea nitrogen/Creatinine [Mass ratio] 10.1 mg/mg 10-20 [facility] Work Phone: Laboratory - Hematology and Cell countson 09-07-2021 Erythrocyte distribution width (RBC) [Entitic vol] 47.5 fL 35.1-43.9 [facility] Work Phone: Erythrocyte distribution width (RBC) [Ratio] 15.2 % 11.6-14.6 [facility] Work Phone: Immature granulocytes/100 WBC (Bld) 0.400 % 0.0-0.9 [facility] Work Phone: Comment on above: IG% - Immature Granu locytes (promyelocytes, myelocytes and metamyelocytes) > 1% indicates that a LEFT SHIFT is Present. MCH (RBC) [Entitic mass] 27.5 pg 27.0-32.0 [facility] Work Phone: Nucleated RBC/100 WBC (Bld) [Ratio] 0 % 0-5 [facility] Work Phone: MCHC Auto (RBC) [Mass/Vol]on 09-07-2021 MCHC (RBC) [Mass/Vol] 32.2 g/dL 32-36 [facility] Work Phone: No Panel Informationon 09-07 Estimated GFR (MDRD) Amer 95 mL/min >60 [facility] Work Phone: Comment on above: GFR Calc Estimated GFR (MDRD) Non-Af Amer 79 mL/min >60 [facility] Work Phone: Comment on above: Non- GFR Calc Platelets bldon 09-07-2021 Platelets (Bld) [#/Vol] 364 10*3/uL 150-450 [facility] Work Phone: Qualitative QuantiFERON-TB g old in tube teston 09-07-2021 M. tuberculosis tuberculin stim IFN-g Ql (Bld) 0.03 IU/mL [facility] Work Phone: Serum or plasma C reactive p rotein measurement (mass/volume)on 09-07-2021 CRP [Mass/Vol] 11.00 mg/L 0.0-3.0 [facility] Work Phone: Comment on above: C-Reactive Protein ( CRP) provides useful information for thediagnosis, therapy and monitoring of inflammatory processesand associated diseases. For the evaluation of Relative Riskfor Cardiovascular Disease, a High Sensitivity CRP (HSCRP)should be ordered. Serum or plasma albumin nomi urement (mass/volume)on 09-07-2021 Albumin [Mass/Vol] 3.1 g/dL 3.2-5.0 [facility] Work Phone: Serum or plasma albumin/glob ulin mass ratioon 09-07-2021 Albumin/Globulin [Mass ratio] 0.7 {ratio} 0.9-2.4 [facility] Work Phone: Serum or plasma calcium nomi urement (mass/volume)on 09-07-2021 Calcium [Mass/Vol] 8.9 mg/dL 8.5-10.1 [facility] Work Phone: Serum or plasma creatinine m easurement (mass/volume)on 09-07-2021 Creatinine [Mass/Vol] 0.89 mg/dL 0.55-1.02 [facility] Work Phone: Comment on above: The validity of the calculated GFR & GFRAA in patients over 70 years has not been determined. Clinical correlation is essential. Serum or plasma urea nitroge n measurement (mass/volume)on 09-07-2021 Urea nitrogen [Mass/Vol] 9 mg/dL 7-18 [facility] Work Phone: Thin prep Papanicolaou smear with manual screeningon 09-07-2021 Thin prep Papanicolaou smear with manual screening 10 U/L 15-37 [facility] Work Phone: Thin prep Papanicolaou smear with manual screening 8 5-15 [facility] Work Phone: Thin prep Papanicolaou smear with manual screening Comment [facility] Work Phone: Comment on above: The QuantiFERON-TB G old Plus result is determined bysubtracting the Nil value from either TB antigen (Ag) tube.The mitogen tube serves as a control for the test. Thin prep Papanicolaou smear with manual screening 0.03 IU/mL [facility] Work Phone: Thin prep Papanicolaou smear with manual screening 0.02 IU/mL [facility] Work Phone: Thin prep Papanicolaou smear with manual screening > 10.00 IU/mL [facility] Work Phone: Thin prep Papanicolaou smear with manual screening Negative Negative [facility] Work Phone: Comment on above: The specimen receive d for QuantiFERON testing was incubatedby the ordering institution. Specific procedures outlinedin our Directory of Services and in the package insert forthe QuantiFERON Gold (In Tube) test must be followed toenable for proper stimulation of cells for the productionof interferon gamma. Chemiluminescence immunoassaymethodologyPerformed at: [facility] [id number] Director: Meng Carmona PhD, Phone: [phone] Absolute lymphocyte counton 07-27-2021 Lymphocytes Auto (Unsp spec) [#/Vol] 3.23 10*3/uL 0.83-4.51 [facility] Work Phone: Basophil percentageon 2021 Basophils/100 WBC (Bld) 0.5 % 0-1 [facility] Work Phone: Bilirubin [Mass/Vol] 0.30 mg/dL 0.20-1.00 [facility] Work Phone: Comment on above: For patients on eltr ombopag therapy, use of Dimension [place] TBIL is not recommended. Chloride [Moles/Vol] 104 mmol/L 98-107 [facility] Work Phone: Eosinophils/100 WBC (Bld) 4.3 % 0-5 [facility] Work Phone: Glucose [Mass/Vol] 84 mg/dL 74-106 [facility] Work Phone: Comment on above: Please note revised GLUCOSE reference range effective 2017. Neutrophils (Bld) [#/Vol] 7.4 10*3/uL 2.0-7.7 [facility] Work Phone: Neutrophils/100 WBC (Bld) 59.9 % 47-70 [facility] Work Phone: Potassium [Moles/Vol] 3.8 mmol/L 3.5-5.1 [facility] Work Phone: Protein [Mass/Vol] 8.4 g/dL 6.4-8.2 [facility] Work Phone: Sodium [Moles/Vol] 139 mmol/L 136-145 [facility] Work Phone: WBC (Bld) [#/Vol] 12.3 10*3/uL 4.4-11.0 [facility] Work Phone: Blood erythrocytes count (nu mber/volume)on 07-27-2021 RBC (Bld) [#/Vol] 4.34 10*6/uL 4.2-5.4 [facility] Work Phone: Blood hemoglobin measurement (mass/volume)on 07-27-2021 Hemoglobin (Bld) [Mass/Vol] 11.9 g/dL 12.0-15.0 [facility] Work Phone: Blood lymphocytes/100 leukoc yteson 07-27-2021 Lymphocytes/100 WBC (Bld) 26.3 % 19-41 [facility] Work Phone: Blood monocytes/100 leukocyt eson 07-27-2021 Monocytes/100 WBC (Bld) 8.5 % 0-10 [facility] Work Phone: Blood platelet mean volumeon 07-27-2021 Platelet mean volume (Bld) [Entitic vol] 9.3 fL 6.2-12.0 [facility] Work Phone: Determination of erythrocyte mean corpuscular volume (MCV)on 07-27-2021 MCV (RBC) [Entitic vol] 84.8 fL 81-99 [facility] Work Phone: Erythrocyte sedimentation ra winnie 07-27-2021 ESR (Bld) [Velocity] 49 mm/h 0-30 [facility] Work Phone: Hematocrit Auto (Bld) [Volum e fraction]on 07-27-2021 Hematocrit (Bld) [Volume fraction] 36.8 % 37-47 [facility] Work Phone: Laboratory - Chemistry and C hemistry - challengeon 07-27-2021 ALP [Catalytic activity/Vol] 105 U/L 45-117 [facility] Work Phone: ALT [Catalytic activity/Vol] 24 U/L 13-56 [facility] Work Phone: CO2 [Moles/Vol] 27.0 mmol/L 21.0-32.0 [facility] Work Phone: Globulin (S) [Mass/Vol] 5.3 g/dL 2.2-4.2 [facility] Work Phone: Urea nitrogen/Creatinine [Mass ratio] 10.5 mg/mg 10-20 [facility] Work Phone: Laboratory - Hematology and Cell countson 07-27-2021 Erythrocyte distribution width (RBC) [Entitic vol] 45.4 fL 35.1-43.9 [facility] Work Phone: Erythrocyte distribution width (RBC) [Ratio] 14.8 % 11.6-14.6 [facility] Work Phone: Immature granulocytes/100 WBC (Bld) 0.500 % 0.0-0.9 [facility] Work Phone: Comment on above: IG% - Immature Granu locytes (promyelocytes, myelocytes and metamyelocytes) > 1% indicates that a LEFT SHIFT is Present. MCH (RBC) [Entitic mass] 27.4 pg 27.0-32.0 [facility] Work Phone: Nucleated RBC/100 WBC (Bld) [Ratio] 0 % 0-5 [facility] Work Phone: MCHC Auto (RBC) [Mass/Vol]on 07-27-2021 MCHC (RBC) [Mass/Vol] 32.3 g/dL 32-36 [facility] Work Phone: No Panel Informationon 07-27 Bordetella pertussis IgG Antibody 1.88 index [facility] Work Phone: Comment on above: Negative <0.95 Equiv ocal 0.95 - 1.04 Positive >1.04Performed at: [facility] [id number] Director: Meng Carmona PhD, Phone: [phone] at: [facility] [address] [id number] Director: Selina Hobson MD, Phone: [phone] Estimated GFR (MDRD) Amer 114 mL/min >60 [facility] Work Phone: Comment on above: GFR Calc Estimated GFR (MDRD) Non-Af Amer 94 mL/min >60 [facility] Work Phone: Comment on above: Non- GFR Calc Hepatitis A IgM Antibody Negative Negative [facility] Work Phone: Hepatitis B Core IgM Antibody Negative Negative [facility] Work Phone: Hepatitis C Antibody (EIA) <0.1 s/co ratio [facility] Work Phone: Comment on above: Negative: < 0.8 Inde terminate: 0.8 - 0.9 Positive: > 0.9 The CDC recommends that a positive HCV antibody result be followed up with a HCV Nucleic Acid Amplification test (135895).Effective October 03, 2021 Hepatitis Panel (4) will be made non-orderable. [email or web address] offers order code [id number] Acute Hepatitis. Rubella IgG Antibody Reactive Nonreactive [facility] Work Phone: Comment on above: Antibody Results Int erpretation of Immune Status Non Reactive Presumed Non-Immune Equivocal Equivocal Reactive Presumed Immune Platelets bldon 07-27-2021 Platelets (Bld) [#/Vol] 455 10*3/uL 150-450 [facility] Work Phone: Serum Varicella zoster virus IgG antibody assay by immunoassay (units/volume)on 07-27-2021 VZV IgG IA Qn (S) 219 index Immune >165 [facility] Work Phone: Comment on above: Negative <135 Equivo enrique 135 - 165 Positive >165A positive result generally indicates exposure to thepathogen or administration of specific immunoglobulins,but it is not indication of active infection or stageof disease. Serum mumps virus IgM antibo dy assay (units/volume)on 07-27-2021 MuV IgM Qn (S) < 0.80 AU [facility] Work Phone: Comment on above: Negative < 0.80 Bord jaylan 0.80 - 1.20 Positive > 1.20Note: The presence of IgM specific antibody should beinterpreted in conjunction with the patient's clinicalhistory and exposure risk when an acute infection issuspected. Serum or plasma C reactive p rotein measurement (mass/volume)on 07-27-2021 CRP [Mass/Vol] 21.90 mg/L 0.0-3.0 [facility] Work Phone: Comment on above: C-Reactive Protein ( CRP) provides useful information for thediagnosis, therapy and monitoring of inflammatory processesand associated diseases. For the evaluation of Relative Riskfor Cardiovascular Disease, a High Sensitivity CRP (HSCRP)should be ordered. Serum or plasma albumin nomi urement (mass/volume)on 07-27-2021 Albumin [Mass/Vol] 3.1 g/dL 3.2-5.0 [facility] Work Phone: Serum or plasma albumin/glob ulin mass ratioon 07-27-2021 Albumin/Globulin [Mass ratio] 0.6 {ratio} 0.9-2.4 [facility] Work Phone: Serum or plasma calcium nomi urement (mass/volume)on 07-27-2021 Calcium [Mass/Vol] 9.6 mg/dL 8.5-10.1 [facility] Work Phone: Serum or plasma creatinine m easurement (mass/volume)on 07-27-2021 Creatinine [Mass/Vol] 0.76 mg/dL 0.55-1.02 [facility] Work Phone: Comment on above: The validity of the calculated GFR & GFRAA in patients over 70 years has not been determined. Clinical correlation is essential. Serum or plasma hepatitis B virus surface antigen detection by immunoassayon 07-27-2021 HBV surface Ag IA Ql Negative Negative [facility] Work Phone: Serum or plasma urea nitroge n measurement (mass/volume)on 07-27-2021 Urea nitrogen [Mass/Vol] 8 mg/dL 7-18 [facility] Work Phone: Thin prep Papanicolaou smear with manual screeningon 07-27-2021 Thin prep Papanicolaou smear with manual screening 17 U/L 15-37 [facility] Work Phone: Thin prep Papanicolaou smear with manual screening 8 5-15 [facility] Work Phone: OBSOLETEon 01-28-2019 OBSOLETE Refill ([facility]) -- WALT SANCHEZ ([id number]) 1990 F Date Time Provider Department 01/28/19 JOSE CARLOS SCHMIDT [facility] During your visit today, we recorded the following information about you: Sirisha Burden 01/28/2019 10:14 AM Signed Pharmacy faxed requesting the following refill. Pending Prescriptions Disp Refills ENSKYCE 0.15 MG-0.03 MG TABLET 112 tablet 1 Sig: TAKE 1 TABLET DAILY XAVI: Yes Last refill: 12/31/2017 Patient last appointment: 04/18/2017 Patient next appointment: Visit date not found Patient Phone numbers: [phone] (home) Request is for script(s) to be escript to pharmacy. Sirisha Schmidt MD 01/28/2019 12:18 PM Signed Needs an appt for refill - has been 2 years Allergies As of Date: 01/28/2019 (No Known Allergies) Date Reviewed: 04/18/2017 Reviewed by: Renae ([facility])(Hist) Ninoska - Fully Assessed Reason for Visit: Refill Request [94] Refill Request [94] Reason For Visit History Recorded Prescriptions as of 01/28/2019 Sig: SPIRONOLACTONE 25 MG TABLET Take 1 tablet by mouth twice * SPIRONOLACTONE 50 MG TABLET Take 0.5 tablets by mouth twi* ENSKYCE 0.15 MG-0.03 MG TABLET TAKE 1 TABLET DAILY DOXYCYCLINE HYCLATE 20 MG TAB* ALREX 0.2 % EYE DROPS,SUSPENS* CHOLECALCIFEROL (VITAMIN D3) * Take 2,000 Units by mouth onc* CLINDAMYCIN 1 % LOTION Apply 1 application to affect* CETIRIZINE 10 MG TABLET Take 10 mg by mouth once ramona* Problem List As Of Date 01/28/2019 Noted Resolved Cystic acne [L70.0] Polycystic ovaries [E28.2] Hidradenitis suppurativa [L73.2] INVALID FOR* Vitamin D deficiency [E55.9] Encounter Status:Closed by SIRISHA GRIGSBY CMA on 02/03/19 [facility] OBSOLETEon 03-21-2018 OBSOLETE Refill ([facility]) -- WALT SANCHEZ ([id number]) 1990 F Date Time Provider Department 03/21/18 [facility] your visit today, we recorded the following information about you: Gloria Dupont CMA 03/21/2018 1:39 PM Signed Patient called requesting the following refill. PT called in stating that [facility] has the 50mg tab on back order and the Pt wants to know if you can write the Rx as 25mg tab twice a day because the Pharmacy has those available now and not on back order. I did change the dose amount but did not add Dispense or refills. Thank You Gloria Dupont CMA Pending Prescriptions Disp Refills SPIRONOLACTONE 50 MG TABLET Sig: Take 0.5 tablets by mouth twice daily. XAVI: No Last refill: 12/22/17 Patient last appointment: Visit date not found Patient next appointment: Visit date not found Patient Phone numbers: [phone] (home) Request is for script(s) to be escript to pharmacy. YONIS Ortiz MD 03/21/2018 3:30 PM Signed Needs an appt soon ! Solo Bell CMA 03/27/2018 3:04 PM Addendum Pt called in stating that the 50 mg of spironolactone is on back order at [facility] so the 50 mg take 0.5 tabs BID will not work she states she is asking for the spironolactone to be sent in as 25 mg BID as they have the 25 mg in stock an this will equal 50 mg daily together. Order pended. Please advise. Pt notified that she is due for an appointment soon last physical was 04/18/2017 pt states that she will call to set up an appointment once she knows what her schedule is going to be as she has an upcoming appointment with a specialist and may need surgery so once she knows what is happening with that she will call and set up an appointment. Solo Bell CMA March 27, 2018 2:50 PM Solo Bell CMA 03/27/2018 2:52 PM Signed Addended by: SOLO BELL CMA on: 03/27/2018 02:52 PM Modules accepted: Orders Allergies As of Date: 03/21/2018 (No Known Allergies) Date Reviewed: 04/18/2017 Reviewed by: Renae ([facility])(Hist) Ninoska - Fully Assessed Reason for Visit: Refill Request [94] Cmt: Spironolactone Reason For Visit History Recorded Order(s):spironolactone (ALDACTONE) 50 mg tabletTake 0.5 tablets by mouth twice daily.Disp: 30 tabletRfl: 0 Prescriptions as of 03/21/2018 Sig: SPIRONOLACTONE 50 MG TABLET Take 0.5 tablets by mouth twi* ENSKYCE 0.15 MG-0.03 MG TABLET TAKE 1 TABLET DAILY DOXYCYCLINE HYCLATE 20 MG TAB* ALREX 0.2 % EYE DROPS,SUSPENS* CHOLECALCIFEROL (VITAMIN D3) * Take 2,000 Units by mouth onc* CLINDAMYCIN 1 % LOTION Apply 1 application to affect* CETIRIZINE 10 MG TABLET Take 10 mg by mouth once ramona* Problem List As Of Date 03/21/2018 Noted Resolved Cystic acne [L70.0] Polycystic ovaries [E28.2] Hidradenitis suppurativa [L73.2] INVALID FOR* Vitamin D deficiency [E55.9] Prescriptions ordered this encounter Disp Refills Start End SPIRONOLACTONE 50 MG TABLET 30 t* 0 03/21/2018 04/20/2018 Route: ORAL Sig: Take 0.5 tablets by mouth twice daily. Medications Discontinued During This Encounter spironolactone (ALDACTONE) 50 mg tab* 90 t* 0 12/22/2017 03/21/2018 Route: ORAL Sig: Take 1 tablet by mouth once daily. Disc: Reason for discontinue is not on file. Encounter Status:Closed by JOSE CARLOS SCHMIDT on 03/21/18 [facility] Vital Signs Date Time Vital Sign Value Performing Clinician Facility 12-17-2024 14:56-0400 Body height 165.1 cm Heidy Butler [facility] Work Phone: [facility] 12-17-2024 14:56-0400 Body mass index (BMI) [Ratio] 49.4 kg/m2 Heidy Butler [employer] Work Phone: [facility] 12-17-2024 14:56-0400 Body weight 134.71 kg Heidy Butler [employer] Work Phone: [facility] 12-17-2024 14:56-0400 Diastolic blood pressure 84 mm[Hg] Heidy Butler [employer] Work Phone: [facility] 12-17-2024 14:56-0400 Heart rate 84 /min Heidy Butler [employer] Work Phone: [facility] 12-17-2024 14:56-0400 Respiratory rate 16 /min Hediy Butler [employer] Work Phone: [facility] 12-17-2024 14:56-0400 SaO2% (BldA) [Mass fraction] 94 % Heidy Butler [employer] Work Phone: [facility] 12-17-2024 14:56-0400 Systolic blood pressure 125 mm[Hg] Heidy Butler [employer] Work Phone: [facility] 10-16-2023 05:49-0400 Diastolic Blood Pressure Non-Invasive 97 mm[Hg] VERENA RODRIGUEZ DO [facility] 10-16-2023 05:49-0400 Heart rate 100 /min VERENA RODRIGUEZ DO [facility] 10-16-2023 05:49-0400 Respiratory rate 18 /min VERENA RODRIGUEZ DO [facility] 10-16-2023 05:49-0400 Systolic Blood Pressure Non-Invasive 151 mm[Hg] VERENA RODRIGUEZ DO [facility] 10-16-2023 04:48-0400 Body temperature 96.98 [degF] VERENA RODRIGUEZ DO [facility] 10-16-2023 04:48-0400 Body weight 136 kg VERENA RODRIGUEZ DO [facility] 10-16-2023 04:48-0400 Diastolic Blood Pressure Non-Invasive 90 mm[Hg] VERENA RODRIGUEZ DO [facility] 10-16-2023 04:48-0400 Heart rate 103 /min VERENA RODRIGUEZ DO [facility] 10-16-2023 04:48-0400 Respiratory rate 18 /min VERENA RODRIGUEZ DO [facility] 10-16-2023 04:48-0400 Systolic Blood Pressure Non-Invasive 173 mm[Hg] VERENA RODRIGUEZ [employer] [facility] 07-30-2023 07:13-0500 Body temperature 97.1 [degF] [facility] Heidy Butler [employer] Work Phone: [facility] 07-30-2023 07:13-0500 Diastolic blood pressure 71 mm[Hg] [employer] Heidy Butler [employer] Work Phone: [facility] 07-30-2023 07:13-0500 Heart rate 91 /min [employer] [employer] Heidy Butler [employer] Work Phone: [facility] 07-30-2023 07:13-0500 Respiratory rate 18 /min [employer] Heidy Butler [employer] Work Phone: [facility] 07-30-2023 07:13-0500 SaO2% (BldA) [Mass fraction] 100 % [employer] Heidy Butler [employer] Work Phone: [facility] 07-30-2023 07:13-0500 Systolic blood pressure 119 mm[Hg] [employer] Heidy Butler [employer] Work Phone: [facility] 07-30-2023 06:07-0500 Body height 165.1 cm [employer] [employer] Heidy Butler [employer] Work Phone: [facility] 07-30-2023 06:07-0500 Body mass index (BMI) [Ratio] 49.8 kg/m2 [employer] Heidy Butler [employer] Work Phone: [facility] 07-30-2023 06:07-0500 Body weight 135.8 kg [employer] Heidy Butler [employer] Work Phone: [facility] 04-19-2022 04:19-0400 Diastolic blood pressure 73 mm[Hg] DR JASON ALAS DO [facility] 04-19-2022 04:19-0400 Heart rate 108 /min DR JASON ALAS DO [facility] 04-19-2022 04:19-0400 Mean blood pressure 83 mm[Hg] DR JASON ALAS DO [facility] 04-19-2022 04:19-0400 Respiratory rate 16 /min DR JASON ALAS DO [facility] 04-19-2022 04:19-0400 Systolic blood pressure 103 mm[Hg] DR JASON ALAS DO [facility] 04-19-2022 02:52-0400 Diastolic blood pressure 76 mm[Hg] DR JASON ALAS DO [facility] 04-19-2022 02:52-0400 Heart rate 105 /min DR JASON ALAS DO [facility] 04-19-2022 02:52-0400 Mean blood pressure 86 mm[Hg] DR JASON ALAS DO [facility] 04-19-2022 02:52-0400 Respiratory rate 22 /min DR JASON ALAS DO [facility] 04-19-2022 02:52-0400 Systolic blood pressure 106 mm[Hg] DR JASON ALAS DO [facility] 04-19-2022 01:50-0400 Diastolic blood pressure 84 mm[Hg] DR JASON ALAS DO [facility] 04-19-2022 01:50-0400 Heart rate 109 /min DR JASON ALAS DO [facility] 04-19-2022 01:50-0400 Mean blood pressure 94 mm[Hg] DR JASON ALAS DO [facility] 04-19-2022 01:50-0400 Respiratory rate 20 /min DR JASON ALAS DO [facility] 04-19-2022 01:50-0400 Systolic blood pressure 113 mm[Hg] DR JASON ALAS DO [facility] 04-18-2022 22:55-0400 Reason For Taking VItal Signs DR JASON ALAS DO [facility] 04-18-2022 20:36-0400 Body temperature 96.98 [degF] DR JASON ALAS DO [facility] 04-18-2022 20:36-0400 Body weight 127.[address] JASON ALAS DO [facility] 04-18-2022 20:36-0400 Heart rate 109 /min DR JASON ALAS DO [facility] 04-07-2022 13:15-0400 Body height 165.1 cm ABILIO CAGLE DPM [facility] 04-07-2022 13:15-0400 Body weight 127.8 kg ABILIO GURJIT DPM [facility] 04-07-2022 13:15-0400 Body weight 46.89 kg/m2 ABILIO CAGLE DPM [facility] 04-07-2022 13:15-0400 diastolic 80 mm[Hg] ABILIO CAGLE DPM [facility] 04-07-2022 13:15-0400 Heart rate 93 /min ABILIO CAGLE DPM [facility] 04-07-2022 13:15-0400 Respiratory rate 20 /min ABILIO CAGLE DPM [facility] 04-07-2022 13:15-0400 systolic 118 mm[Hg] ABILIO CAGLE DPM [facility] 10-19-2021 12:59-0400 Body height 165.1 cm [employer] [facility]Dianne Butler [employer] Work Phone: [facility] Work Phone: 10-19-2021 12:59-0400 Body mass index (BMI) [Ratio] 44.7 kg/m2 [facility]Dianne Butler [employer] Work Phone: [facility] Work Phone: 10-19-2021 12:59-0400 Body weight 122.01 kg [employer]Dianne Butler [employer] Work Phone: [facility] Work Phone: 10-19-2021 12:59-0400 Diastolic blood pressure 83 mm[Hg] [employer]Dianne Butler [employer] Work Phone: [facility] Work Phone: 10-19-2021 12:59-0400 Heart rate 92 /min [employer] Heidy Butler [employer] Work Phone: [facility] Work Phone: 10-19-2021 12:59-0400 SaO2% (BldA) [Mass fraction] 96 % [employer] Heidy Butler [employer] Work Phone: [facility] Work Phone: 10-19-2021 12:59-0400 Systolic blood pressure 120 mm[Hg] [employer] Heidy Butler [employer] Work Phone: [facility] Work Phone: 10-19-2021 12:59-0400 Body height 165.1 cm [employer] [facility] Heidy Butler [employer] Work Phone: [facility] Work Phone: 10-19-2021 12:59-0400 Body mass index (BMI) [Ratio] 44.7 kg/m2 [employer] Heidy Butler [employer] Work Phone: [facility] Work Phone: 10-19-2021 12:59-0400 Body weight 122.01 kg [employer] Heidy Butler [employer] Work Phone: [facility] Work Phone: 10-19-2021 12:59-0400 Diastolic blood pressure 83 mm[Hg] [employer] [facility] Heidy Butler [employer] Work Phone: [facility] Work Phone: 10-19-2021 12:59-0400 Heart rate 92 /min [employer] Heidy Butler [employer] Work Phone: [facility] Work Phone: 10-19-2021 12:59-0400 SaO2% (BldA) [Mass fraction] 96 % [employer] Heidy Butler [employer] Work Phone: [facility] Work Phone: 10-19-2021 12:59-0400 Systolic blood pressure 120 mm[Hg] [employer] Heidy Butler [employer] Work Phone: [facility] Work Phone: Encounters Encounter Date Encounter Type Care Provider Facility Start: 02-20-2025 ambulatory El Peterson Facility :[facility] Start: 02-19-2025 Encounter for other preprocedural examination Eldeuce Peterson [facility] Start: 01-14-2025 End: 01-14-2025 ambulatory Heidy Butler [employer] Work Phone: -Laboratory Specimen Start: 01-14-2025 End: 01-14-2025 Patient encounter procedure Stefani CARNEYC -Laboratory Specimen Work Phone: Start: 01-14-2025 End: 01-14-2025 ambulatory Heidy Butler [employer] Facility:[facility] Start: 12-17-2024 End: 12-17-2024 ambulatory Heidy Butler [employer] Work Phone: [facility] Work Phone: Start: 12-17-2024 End: 12-17-2024 Patient encounter procedure Stefani CARNEYC -Laboratory Work Phone: Start: 12-17-2024 End: 12-17-2024 Patient encounter procedure Stefani CARNEYC -[facility] Work Phone: Start: 12-17-2024 End: 12-17-2024 ambulatory Heidy Butler [employer] Work Phone: [facility] Work Phone: Start: 12-17-2024 End: 12-17-2024 ambulatory Heidy Butler [employer] Facility:[facility] Start: 09-03-2024 End: 09-03-2024 Patient encounter procedure El Peterson DO -Laboratory Specimen Work Phone: Start: 09-03-2024 End: 09-03-2024 ambulatory Heidy Butler NP Facility:[facility] Start: 08-06-2024 End: 08-06-2024 ambulatory El Friend Facility:[facility] Start: 08-06-2024 End: 08-06-2024 ambulatory El Friend Facility:[facility] Start: 04-09-2024 End: 04-09-2024 ambulatory El Friend Facility:[facility] Start: 03-12-2024 End: 03-16-2024 ambulatory UNKNOWN PROVIDER Facility:[facility] Start: 03-12-2024 End: 03-16-2024 Outreach Lab AGUS RICE MD [facility] Start: 11-12-2023 End: 11-16-2023 ambulatory ANABELLA SHAUN [employer]OR [employer] Facility:[facility] Start: 11-12-2023 End: 11-16-2023 Outreach Lab ANABELLA SHAUN INSPECTOR [employer] [facility] Start: 10-16-2023 End: 10-16-2023 Emergency department patient visit VERENA RODRIGUEZ DO [facility] Start: 09-29-2023 End: 10-03-2023 ambulatory EL PETERSON DO Facility:[facility] Start: 09-27-2023 End: 09-27-2023 ambulatory EL FRIEND DO Facility:[facility] Start: 09-27-2023 End: 09-27-2023 Patient encounter procedure EL FRIEND DO [facility] Start: 07-30-2023 Non-patient / Non-visit [employer]Dianne Butler [employer] Work Phone: [facility] Start: 07-30-2023 End: 07-30-2023 Admission to same day surgery center [facility]Dianne Butler [employer] Work Phone: [facility]-Endoscopy Work Phone: Start: 07-30-2023 End: 07-30-2023 ambulatory [employer] Heidy Butler [employer] Work Phone: [facility] Work Phone: Start: 05-23-2023 End: 05-23-2023 ambulatory [employer] Heidy Butler [employer] Work Phone: [facility] Work Phone: Start: 05-23-2023 End: 05-23-2023 Patient encounter procedure [employer] Heidy Butler [employer] Work Phone: [facility]-Laboratory Work Phone: Start: 05-23-2023 End: 05-23-2023 Patient encounter procedure [employer] Heidy Butler [employer] Work Phone: [facility] Work Phone: Start: 03-17-2023 End: 03-17-2023 Patient encounter procedure HEIDY BUTLER INSPECTOR [employer] [facility] Start: 02-28-2023 End: 02-28-2023 ambulatory [facility] Work Phone: Start: 02-28-2023 End: 02-28-2023 Patient encounter procedure [facility]Laboratory Work Phone: Start: 12-30-2022 End: 12-30-2022 ambulatory [employer] [facility] Heidy Butler [employer] Work Phone: [facility] Work Phone: Start: 12-30-2022 End: 12-30-2022 Patient encounter procedure [employer] Heidy Butler [employer] Work Phone: [facility]-Laboratory Start: 12-21-2022 End: 12-25-2022 Outreach Lab CHAI CEJA MD [facility] Start: 11-22-2022 End: 11-22-2022 Patient encounter procedure HARPER PIMENTEL MD [facility] Start: 10-04-2022 End: 10-04-2022 Patient encounter procedure HARPER PIMENTEL MD [facility] Start: 09-27-2022 End: 09-27-2022 ambulatory [employer] Heidy Butler [employer] Work Phone: [facility] Work Phone: Start: 09-27-2022 End: 09-27-2022 Patient encounter procedure [employer] Heidy Butler [employer] Work Phone: [facility] Start: 08-16-2022 End: 08-16-2022 Patient encounter procedure HARPER PIMENTEL MD [facility] Start: 07-05-2022 End: 07-05-2022 ambulatory [employer] Heidy Butler [employer] Work Phone: [facility] Work Phone: Start: 07-05-2022 End: 07-05-2022 Patient encounter procedure [employer] Heidy Butler [employer] Work Phone: [facility] Start: 04-18-2022 End: 04-19-2022 Emergency department patient visit DR JASON ALAS DO [facility] Start: 04-07-2022 End: 04-07-2022 Admission to establishment ABILIO CAGLE DPM [facility] Start: 03-29-2022 End: 03-29-2022 Patient encounter procedure HEIDY BUTLER INSPECTOR [employer] [facility] Start: 03-22-2022 End: 03-22-2022 ambulatory [employer] Heidy Butler [employer] Work Phone: [facility] Work Phone: Start: 03-22-2022 End: 03-22-2022 Patient encounter procedure [employer] Heidy Butler [employer] Work Phone: [facility] Start: 01-04-2022 End: 01-04-2022 Patient encounter procedure [employer] Heidy Butler [employer] Work Phone: [facility]-Laboratory Start: 12-28-2021 End: 12-28-2021 Patient encounter procedure [employer] Heidy Butler [employer] Work Phone: [facility] Start: 12-27-2021 End: 12-27-2021 Patient encounter procedure [employer] Heidy Butler [employer] Work Phone: [facility] Start: 12-21-2021 End: 02-07-2022 Physical therapy management ABILIO CAGLE DPM [facility] Start: 11-02-2021 End: 11-02-2021 Patient encounter procedure [employer] Heidy Butler [employer] Work Phone: [facility]Laboratory Start: 10-19-2021 End: 10-19-2021 Patient encounter procedure [employer] Heidy Butler [employer] Work Phone: [facility] Start: 09-14-2021 End: 09-14-2021 Patient encounter procedure [employer] Heidy Butler [employer] Work Phone: [facility]-Laboratory, Specimen Start: 09-07-2021 End: 09-07-2021 Patient encounter procedure [employer] Heidy Butler [employer] Work Phone: [facility]Labor[facility] Start: 09-07-2021 End: 09-07-2021 Patient encounter procedure [employer] Heidy Butler [employer] Work Phone: [facility] Start: 08-17-2021 End: 08-17-2021 Patient encounter procedure [employer]-Dianne Butler [employer] Work Phone: [facility]Cat Scan, [facility] Start: 07-27-2021 End: 07-27-2021 Patient encounter procedure [employer]-Dianne Butler [employer] Work Phone: [facility]-Laboratory Start: 07-27-2021 End: 07-31-2021 Outreach Lab HEIDY BUTLER INSPECTOR [employer] [facility] Start: 07-27-2021 End: 07-27-2021 Patient encounter procedure [employer]Dianne Heidy Butler [employer] Work Phone: [facility] Start: 06-22-2021 End: 06-22-2021 Patient encounter procedure EL FRIEND DO [facility] Procedures Date Procedure Procedure Detail Performing Clinician Start: 12-17-2024 In-vitro immunologic test Heidy Butler [facility] Work Phone: Comment on above: QuantiFERON-TB Gold Plus is a qualitativ e indirect test forM tuberculosis infection (including disease) and isintended for use in conjunction with risk assessment,radiography, and other medical and diagnostic evaluations.The QuantiFERON-TB Gold Plus result is determined bysubtracting the Nil value from either TB antigen (Ag)value. The Mitogen tube serves as a control for the test. No response to M tub erculosis antigens detected.Infection with M tuberculosis is unlikely, but high riskindividuals should be considered for additional testing(ATS/IDSA/CDC Clinical Practice Guidelines, 2017). Thereference range is an Antigen minus Nil result of <0.35IU/mL.The specimen received for QuantiFERON testing was incubatedby the ordering institution. Specific procedures outlinedin our Directory of Services and in the package insert forthe QuantiFERON Gold (In Tube) test must be followed toenable for proper stimulation of cells for the productionof interferon gamma. Chemiluminescence immunoassaymethodologyPerformed at: [facility] [id number] Director: Meng Carmona PhD, Phone: [phone] Start: 09-03-2024 Clostridium difficile detection Heidy Sandeep [employer] Work Phone: Start: 09-03-2024 Lactoferrin measurement Heidy Juarezshruthi [employer] [facility] Work Phone: Start: 09-03-2024 Nucleic acid assay Heidy Juarezshruthi [employer] Work Phone: Start: 09-03-2024 Ova OR parasites identification Heidy Juarezshruthi [employer] Work Phone: Start: 09-03-2024 Iadna-dna/rna gi pthgn multiplex probe tq 6-11 Heidy Sandeep [employer] [facility] Work Phone: Start: 07-30-2023 Colonoscopy [employer] Heidy Butler [employer] Work Phone: Start: 12-27-2021 MRI of joint of lower extremity [employer] Irais Butler [employer] Work Phone: Start: 08-17-2021 Computed tomography of abdomen and pelvis with contrast [employer] Heidy Sandeep [employer] Work Phone: Ankle/foot orthosis (physical object) HEIDY BUTLER INSPECTOR [employer] Comment on above: debridement in joint Right ankle Colonoscopy ABILIO CAGLE DPM Structure of wisdom tooth (body structure) DR JASON ALAS DO Plan of Treatment Date Care Activity Detail Author Start: 07-30-2023 Patient discharge [facility] Start: 05-23-[address] [facility] [facility] Start: 03-22-[address] [facility] Work Phone: C reactive protein [ Mass/volume] in Serum or Plasma [facility] CBC W Auto Different ial panel - Blood [facility] Comprehensive metabo lic 2000 panel - Serum or Plasma [facility] Hepatitis B virus santillan rface Ab [Presence] in Serum [facility] In-vitro immunologic test [facility] Patient referral [facility] Work Phone: Procedure [facility] Work Phone: Procedure [facility] Procedure [facility] Protein measurement [facility] Urine test [facility] Immunizations Immunization Date Immunization Notes Care Provider Fa joyce 05-17-2022 influenza, injectabl e, quadrivalent, contains preservative; Translations: [Fluarix PF Quadrivalent ] HARPER PIMENTEL [facility] 06-30-2021 influenza virus vacc ine, unspecified formulation HEIDY BUTLER INSPECTOR METAL CAN-THIRD HELPER [facility] 06-01-2021 SARS-CoV-2 (COVID-19 ) mRNA-1273 vaccine HEIDY BUTLER INSPECTOR METAL CAN-THIRD HELPER [facility] 09-01-2020 SARS-CoV-2 (COVID-19 ) mRNA-1273 vaccine EL FRIEND DO [facility] 08-04-2020 SARS-CoV-2 (COVID-19 ) mRNA-1273 vaccine EL FRIEND DO [facility] 04-21-2020 influenza virus vacc ine, unspecified formulation EL FRIEND DO [facility] 01-05-2016 tetanus toxoid, redu volodymyr diphtheria toxoid, and acellular pertussis vaccine, adsorbed HEIDY BUTLER INSPECTOR METAL CAN-THIRD HELPER [facility] 01-21-2009 meningococcal polysaccharide (groups A, C, Y and W-135) diphtheria toxoid conjugate vaccine (MCV4P) HEIDY BUTLER INSPECTOR METAL CAN-THIRD HELPER [facility] 12-31-2001 measles/mumps/rubell a virus vaccine HEIDY BUTLER INSPECTOR METAL CAN-THIRD HELPER [facility] 02-11-1996 varicella virus vaccine LORA BUTLER INSPECTOR METAL CAN-THIRD HELPER [facility] 03-05-1995 hepatitis B pediatri c vaccine HEIDY BUTLER INSPECTOR METAL [employer]THIRD HELPER [facility] 04-06-1994 hepatitis B pediatri c vaccine HEIDY BUTLER INSPECTOR METAL CAN-THIRD HELPER [facility] 03-07-1994 hepatitis B pediatri c vaccine HEIDY BUTLER INSPECTOR METAL [employer]-THIRD HELPER [facility] 05-13-1992 measles/mumps/rubell a virus vaccine HEIDY BUTLER INSPECTOR METAL [employer]-THIRD HELPER [facility] Payers Date Payer Category Payer Self-pay [id number] 2023 Unknown [id number] 1991 Unknown [id number] 2.16.8 [id number] 1991 Unknown [id number] 2.16.8 [id number] 1991 Unknown [id number] 2.16.8 [id number] 1991 Unknown [id number] 2.16.8 [id number] 1991 Unknown [id number] 2.16.8 [id number] 1991 Unknown [id number] 2.16.8 [id number] Unknown [id number] Unknown [id number] 2.16.8 [id number] Unknown [id number] 2.16.8 [id number] Unknown [id number] 2.16.8 [id number] Unknown [id number] 2.16.8 [id number] Unknown [id number] 2.16.8 [id number] Unknown [id number] 2.16.8 [id number] Unknown [id number] 2.16.8 [id number] Unknown [id number] 2.16.8 [id number] Social History Date Type Detail Facility Start: 06-30-2020 End: 12-17-2024 Never smoked tobacco (finding) [facility] Start: 1990 Sex Assigned At Female [facility] Start: 10-19-2021 End: 07-26-2023 Tobacco smoking status NHIS Unknown if ever smoked [facility] NEGATED: Highlighted row [facility] Goals Date Patient Goal Desired Activity /State Functional Status Date Assessment Result Facility 10-16-2023 [facility] Functional Status Repositions self [facility] 04-19-2022 Functional Status Standard Safet y ID band on, Call device within reach, Bed in low position [facility] 04-19-2022 Functional Status [facility] 04-18-2022 Functional Status [facility] 04-07-2022 Functional Status Sensory Deficits None [facility] Mental Status Date Assessment Result Facility 10-16-2023 Mental Status Orientation Oriented x 4 [facility] 10-16-[address] [facility] 07-30-2023 Cognitive function Voice/Name [facility] Work Phone: 04-18-2022 Mental Status Orientation Oriented x 4 [facility] 04-18-2022 Mental Status [facility] Clinical Notes 07-27-2021 to 12-17-2024 Note Date & Type Note Facility 12-17-2024 Evaluation note Diagnosis Onset Date Resolution Fecal urgency acute December 17, 2 025 2:42pm Ulcerative colitis inactive December 172024 2:42pm [facility] Work Phone: 1(839) 514-668304-23-2024 Note. MICRO - Microbiology PROCEDURE: Urine Culture [*1] SOURCE: Urine, Clean Catch BODY SITE: COLLECTED DATE/TIME: 11/12/2023 09:19 EDT RECEIVED DATE/TIME: 11/12/2023 14:00 EDT START DATE/TIME: 11/12/2023 14:00 EDT FREE TEXT SOURCE: FINAL REPORTS Final Report [] Verified Date/Time/Personnel: 11/13/2023 14:05 EDT 10,000 - 50,000 cfu/ml Multiple bacterial morphotypes present. Probable Contamination. Suggest recollection if clinically indicated. Performing Locations *1: This test was performed at: [address], [id number] [place], [place] [address]70710-18-2023 Note. MICRO - Microbiology PROCEDURE: Urine Culture [O1 *1] SOURCE: Urine BODY SITE: COLLECTED DATE/TIME: 10/16/2023 07:02 EDT RECEIVED DATE/TIME: 10/16/2023 07:08 EDT START DATE/TIME: 10/16/2023 07:08 EDT FREE TEXT SOURCE: FINAL REPORTS Final Report [] Verified Date/Time/Personnel: 10/18/2023 08:02 EDT >100,000 cfu/ml Escherichia coli PRELIMINARY REPORTS Preliminary Report [] Verified Date/Time/Personnel: 10/17/2023 10:24 EDT >100,000 cfu/ml Escherichia coli UNIQUE to follow SUSCEPTIBILITY RESULTS Escherichia coli Antibiotic UNIQUE Dilut UNIQUE Inter Ampicillin <=8 Susceptible Ampicillin/ <=4/2 Susceptible Sulbactam Aztreonam <=4 Susceptible Cefazolin <=2 Susceptible Ciprofloxacin <=0.25 Susceptible Ertapenem <=0.5 Susceptible Gentamicin <=2 Susceptible ID Panel Not Not Applicable Applicable Imipenem <=1 Susceptible Levofloxacin <=0.5 Susceptible Meropenem <=1 Susceptible Minocycline <=4 Susceptible Nitrofurantoin <=32 Susceptible Trimethoprim/ <=0.5/9.5 Susceptible Sulfa Order Comments O1: Urine Culture Added by Discern Performing Locations *1: This test was performed at: [address], [address] [place], [place] [address]10-16-2023 Hospital Discharge instructions Patient Education 10/16/2023 07:02:43 Understanding Urinary Tract Infections (UTIs) Understanding Urinary Tract Infections (UTIs) Most UTIs are caused by bacteria, although they may also be caused by viruses or fungi. Bacteria from the bowel are the most common source of infection. The infection may start because of any of the following: Sexual activity. During sex, bacteria can travel from the penis, vagina, or rectum into the urethra. Bacteria on the skin outside the rectum may travel into the urethra. This is more common in women since the rectum and urethra are closer to each other than in men. Wiping from front to back after using the toilet and keeping the area clean can help prevent germs from getting to the urethra. Blockage of urine flow through the urinary tract. If urine sits too long, germs may start to grow out of control. Parts of the urinary tract The infection can occur in any part of the urinary tract. The kidneys collect and store urine. The ureters carry urine from the kidneys to the bladder. The bladder holds urine until you are ready to let it out. The urethra carries urine from the bladder out of the body. It is shorter in women, so bacteria canmove through it more easily. The urethra is longer in men, so a UTI is less likely to reach the bladder or kidneys in men. [id number] [employer]. [address] [place] [address]. All rights reserved. This information is not intended as a substitute for professional medical care. Always follow yourhealthcare professional's instructions. Follow Up Care 10/16/2023 04:41:44 With:HEIDY BUTLER Address: [place] [address] [phone] When:2-4 days [facility] 03-26-2024 Emergency department Discharge summary Discharge Instructions Thank you for allowing [facility] to assist you with your healthcare needs. The following is importantdischarge information regarding your hospital visit. Diagnosis from Today's Visit Abdominal pain Dizziness What to Do Next Instructions from Your Care Team No qualifying data available. Post Acute Orders No qualifying data available. You Need to Schedule the Following Appointments Follow Up with HEIDY BUTLER When Within 2-4 days Where: [place] [address]- [phone] Allergies NSAIDS Vicodin (Paranoia) melatonin Medications Please ask your primary doctor or pharmacist before taking any other medication not listed, including over the counter drugs, herbal medications, vitamins and or supplements as they may interact withyour home medications. What How Much When Instructions Last Dose New cephalexin (Keflex use cephalexin ) 500 Milligram by mouth Every 6 hours Duration: 7 Days Printed Prescription Unchanged adalimumab (Humira Pen 40 mg/ 0.4 mL subcutaneous kit) Unchanged ascorbic acid (Vitamin C 250 mg oral tablet) 1 tab(s) by mouth Once a day Unchanged calcium carbonate Unchanged cetirizine (cetirizine 10 mg oral tablet) 1 tab(s) by mouth Once a day Unchanged cholecalciferol (Vitamin D3) 20 Microgram by mouth Every day Unchanged clindamycin topical (clindamycin 1% topical lotion) 1 application Topical Two (2) times a day sent in absence of PCP Unchanged cyanocobalamin (Vitamin B12 1000 mcg oral tablet) 1 tab(s) by mouth Once a day Unchanged folic acid (folic acid 1 mg oral tablet) 1 tab(s) by mouth Once a day Unchanged herbal/ nutritional product (Probiotic) Unchanged spironolactone (spironolactone 25 mg oral tablet) 1 tab(s) by mouth Two (2) times a day Duration: 90 Days Please take this list to your next doctor s visit. Bring all medications you take, including over the counter medications, herbals and other supplements with you to your doctor s visit. Patients and families are reminded to discard old lists and to update any records with all medication providers or retail pharmacies. Education Materials Understanding Urinary Tract Infections (UTIs) Most UTIs are caused by bacteria, although they may also be caused by viruses or fungi. Bacteria from the bowel are the most common source of infection. The infection may start because of any of the following: Sexual activity. During sex, bacteria can travel from the penis, vagina, or rectum into the urethra. Bacteria on the skin outside the rectum may travel into the urethra. This is more common in women since the rectum and urethra are closer to each other than in men. Wiping from front to back after using the toilet and keeping the area clean can help prevent germs from getting to the urethra. Blockage of urine flow through the urinary tract. If urine sits too long, germs may start to grow out of control. Parts of the urinary tract The infection can occur in any part of the urinary tract. The kidneys collect and store urine. The ureters carry urine from the kidneys to the bladder. The bladder holds urine until you are ready to let it out. The urethra carries urine from the bladder out of the body. It is shorter in women, so bacteria canmove through it more easily. The urethra is longer in men, so a UTI is less likely to reach the bladder or kidneys in men. [id number] [employer]. [address] [place] [address], [place] [address]. All rights reserved. This information is not intended as a substitute for professional medical care. Always follow yourhealthcare professional's instructions. Additional Information VACCINATE! IT SAVES LIVES! Members of the community who have not yet received the COVID-19 vaccine and would like to receive it can visit one of [facility] vaccine clinics. There are many vaccine clinic locations within the [facility]. For locations and available times, please visit www.gettheshot.coronavirus.[place].gov/. It is important to note that some COVID mobile vaccine clinics are held outdoors and may be canceled in rainy or stormy conditions. To learn more about pediatric vaccinations (ages 5-11), we invite you to visit the [facility] webpage. https://www.[employer].org/[email or web address] [email or web address] learn more about the COVID-19 vaccine, we invite you to visit the CDC website for a list of frequently asked questions. https://www.cdc.gov/coronavirus/2019-ncov/vaccines/faq.html [facility] Patient Portal Access Instructions: Stay connected with your healthcare team and access your personal medical information anytime with the [employer] Patient Portal. If you would like a full copy of your medical records please contact the [facility] Medical Records Department Sunday through Sunday between 8a.m. and 4:30p.m. Please follow the directions below to access the portal: 1.Access the email account you provided upon registration to the hospital.2.Look for an invitation email from [facility].3.Open the email and access the invitation link: Accept Invitation to [facility]4.Fill in the required mariscal to create your account. Sign into www.[employer] with your username and password that you created in the above steps to stay up to date. You can then view a summary of results, a summary of your visits, and the ability to download your summaries to your computer or send the information securely to a physician. Remember that your healthcare information is confidential, so carefully consider who you will allow to register on the [facility] Patient Portal for access to your information. You can also access the [facility] Patient Portal on the [employer] dell. Simply click on Health Records under [employer] and then click on the [employer] logo. HOW TO SAFELY DISPOSE OF PRESCRIPTION MEDICATIONS Please use one of the following methods to safely dispose of your unused medications. 1.Use a drug disposal kit: the drug disposal pouch allows you to safely discard your old and unuseddrugs. Ask your nurse to give you one when you are discharged.2.Visit a local take-back location: Many local pharmacies and police departments have programs that collect old and unwanted prescriptiondrugs. Call your local pharmacy or go to http://[employer]/1P7In6f to find one close to you.3.Make use of household items: Use cat litter or old coffee grounds to dispose medications if other options arenot available. Mix your drugs with these household products, seal them in an airtight container andthrow it into the garbage. Call [facility]: [phone] to be sure your drugs can be disposed of in this way. Some medicines may require a different approach.4.Never flush your medications down the toilet. IF YOU HAVE BEEN PRESCRIBED AN OPIOIDS FOR PAIN If you have been prescribed an opioid (such as hydrocodone, oxycodone or morphine), it is critical to understand the possible side effects and risks of opioid pain medications. Even when taken as directed, opioids can have several side effects including: Tolerance, meaning you might need to take more of a medication for the same pain relief. Nausea, vomiting and/or constipation. Sleepiness, dizziness, dry mouth, confusion, depression or itching. Physical dependence, meaning you have withdrawal symptoms when a medication is stopped ? this can develop within a few days. KNOW YOUR RESPONSIBILITIES It is important to know exactly how much and how often to take the opioid pain medications you are prescribed. Never take opioids in higher amounts or more often than prescribed. Do not combine opioids with alcohol or other drugs that cause drowsiness, such as benzodiazepines, also known as benzos,including diazepam and alprazolam, muscle relaxants or sleep aids. Never sell or share prescriptionopioids. This is illegal. Store opioids in a secure place and out of reach of others (including children, family, friends and visitors). The last page(s) of this document has been signed and retained as a CHART COPY Signatures Patient Education Materials Understanding Urinary Tract Infections (UTIs) Medication Leaflets My discharge plan and instructions have been reviewed and explained to me and I,WALT SANCHEZ understand my current condition and have read and understand these discharge instructions. I have received a written copy of the plan/instructions. If I have questions, I am aware that I should contact my doctor. 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 HISTORY: ORDERING SYSTEM PROVIDED HISTORY: Reason for Exam: PT C/O ABD PAIN LLQ PAIN RADIATING TO BACK N/V KNOWN ULCERATIVE COLITIS CHRONIC DIARRHEA CONSTIPATION abdominal pain, FINDINGS: The included lung bases are clear. There is no visible pleural or pericardial effusion. The heart is normal in size. The liver, spleen, adrenal glands, and pancreas are within normal limits. The gallbladder is unremarkable. Symmetric nephrograms. No hydronephrosis. The ureters are normal in course and caliber. Suspected mild wall thickening and inflammatory change noted adjacent to the urinary bladder suspicious for an infectious or inflammatory cystitis. Mild prominence of the right ureter with subtle adjacent haziness could represent a mild ascending ureteritis, a no definite inflammatory change of the left ureter is identified. The large and small bowel demonstrate no obstruction. The appendix is normal. No free intraperitoneal fluid or gas is identified. The aorta is normal in caliber. No abdominopelvic lymphadenopathy. There is no acute fracture or aggressive osseous lesion. Mild degenerative changes are present in the spine. No acute soft tissue abnormality. Small fat containing umbilical hernia. IMPRESSION: Wall thickening and inflammatory change suspected adjacent to the urinary bladder, suspicious for an infectious or inflammatory cystitis. Mild haziness and prominence of the ureter on the right could represent an infectious or inflammatory ascending ureteritis. Preliminary Report was Dictated by a Resident Interpreted by: Trevon Chinchilla MD Preliminary Report By: Tania Soliman Electronically signed By Trevon Chinchilla MD Dictated Date: 10/16/2023 6:36:10 AM Prelim Date: 10/16/2023 6:41:20 AM Sign Date: 10/16/2023 7:12:03 AM Ordering Provider: [facility]03-26-2024 NoteSINUS RHYTHM Electronic Signature: JENNIFER VERENA Jb GAMBINO 10/16/2023 06:40:15[facility] 03-09-2024 Note. MICRO - Microbiology PROCEDURE: Fecal Leukocytes [*1] SOURCE: Stool BODY SITE: COLLECTED DATE/TIME: 09/29/2023 12:25 EST RECEIVED DATE/TIME: 09/29/2023 15:08 EST START DATE/TIME: 09/29/2023 15:08 EST FREE TEXT SOURCE: FINAL REPORTS Final Report [] Verified Date/Time/Personnel: 09/29/2023 15:19 EST Microscopy: Fecal Leukocytes Absent From our data, approximately 50% of enteroinvasive bacterial pathogens will not be associated with stool WBC's. Performing Locations *1: This test was performed at: [facility], [address] [place] [address], [phone] , [facility] ([place])09-27-2023 Evaluation + Plan note Diagnostic Tests Pending * Miscellaneous LC Test 09/27/23 * Hepatitis B Surface Ab 09/27/23 * C-Reactive Protein 09/27/23 * Complete Blood Count 09/27/23 * Sedimentation Rate Automated 09/27/23 * Complete Metabolic Panel 09/27/23 * Lactate Dehydrogenase 09/27/23 Future Scheduled Tests Radiology* US Pelvis Non-OB W/Transvaginal 05/04/23 [facility] 01-08-2024 Procedure [facility] 07-30-2023 Procedure [facility]10-13-2023 Evaluation + Plan note Future Scheduled Tests Radiology* US Pelvis Non-OB W/Transvaginal 05/04/23 [facility] 01-25-2023 Evaluation + Plan note Diagnostic Tests Pending * [facility] Lab Send out (Blood Specimens) 08/16/22 [facility] 09-27-2022 Note ORIGINAL EXAMINATION: CTA OF THE CHEST [...] 04/18/2022 11:45:41 PM Ordering Provider: JASON ALAS [facility]09-27-2022 Note ORIGINAL EXAMINATION: CTA OF THE CHEST [...] Date: 04/18/2022 11:45:41 PM Ordering Provider: JASON [facility]09-27-2022 Hospital Discharge instructions Follow Up Care 04/18/2022 20:35:13 With:HEIDY BUTLER APRN-[facility] Address: [address] [place] [facility] [place] [address] [phone] When:2-4 days [facility] 09-27-2022 Note ORIGINAL EXAMINATION: ONE XRAY VIEW OF [...] Sign Date: 04/18/2022 10:11:55 PM Ordering Provider: [facility]09-27-2022 Note ORIGINAL EXAMINATION: ONE XRAY VIEW OF [...] Sign Date: 04/18/2022 10:11:55 PM Ordering Provider: [facility]09-27-2022 Evaluation + Plan note Future Appointments Diagnostic Tests Pending * Prothrombin Time - Panel 04/18/22 * APTT Panel 04/18/22 * APTT Panel 04/18/22 * Prothrombin Time - Panel 04/18/22 * APTT Panel 04/19/22 [facility] 01-05-2022 Evaluation + Plan note Future Scheduled Tests Laboratory* Pathology Diversity Specialist Request 07/27/21 [facility] Evaluation + Plan note Future Appointments Appointment Date:07/27/2021 01:00:00 PM Scheduled Provider:HEIDY BUTLER Location:[facility] Appointment Type:PC Wellness Annual [facility] Evaluation + Plan note Future Appointments Appointment Date:04/05/2022 02:30:00 PM Scheduled Provider:HEIDY BUTLER Location:[facility] Appointment Type:PC OV Pre Op [facility] Evaluation + Plan note Future Appointments [facility] Evaluation + Plan note Future Appointments Appointment Date:04/04/2023 02:30:00 PM Scheduled Provider:HEIDY BUTLER Location:[facility] Appointment Type:PC OV Appointment Date:06/06/2023 01:30:00 PM Scheduled Provider: Location:[facility] Appointment Type:US Pelvis Non-OB W/Transvaginal Appointment Date:06/13/2023 01:00:00 PM Scheduled Provider:AGUS RICE MD Location:[facility] Appointment Type:WH OV Future Scheduled Tests Radiology* US Pelvis Non-OB W/Transvaginal 06/06/23 [facility] Evaluation + Plan note Future Appointments Appointment Date:10/19/2023 01:00:00 PM Scheduled Provider:THOR HAMMOND DO Location:[facility] Appointment Type:PC OV ED Follow Up Diagnostic Tests Pending * Urine Culture 10/16/23 Future Scheduled Tests Radiology* US Pelvis Non-OB W/Transvaginal 05/04/23 [facility] Evaluation + Plan note Future Appointments Appointment Date:04/23/2024 01:30:00 PM Scheduled Provider:HEIDY BUTLER Location:[facility] Appointment Type:PC Wellness Annual Diagnostic Tests Pending * HPV Screen, DNA Probe 03/12/24 Future Scheduled Tests Radiology* US Pelvis Non-OB W/Transvaginal 05/04/23 [facility] Evaluation noteNo assessment information available [facility] Work Phone: evaluation note* Diagnosis Onset Date Resolution Status Ulcerative colitis with rectal bleeding acute [facility] Work Phone: evaluation note* Diagnosis Onset Date Resolution Status Ulcerative colitis with rectal bleeding acute Ulcerative colitis with rectal bleeding acute [facility] Work Phone: evaluation note* Diagnosis Onset Date Resolution Status Ulcerative colitis with rectal bleeding chronic Ulcerative colitis with rectal bleeding chronic [facility] Work Phone: Evaluation note* Diagnosis Onset Date Resolution Status Ulcerative colitis with rectal bleeding [facility] Work Phone: evaluation note* Diagnosis Onset Date Resolution Status Admit Date Ulcerative colitis inactive December 172024 2:42pm [facility] Work Phone: History and physical note Author El Friend [facility] July 30, 2023 6:40am Note Date/Time July 30, 2023 6: 41am [facility] Medical Records Department [address] [place] [address] History & Physical Exam 07/30/23 0640 MR#: [id number] Acct: [id number] Name: WALT SANCHEZ Rep #:[id number] : 1990 33 From: El Peterson DO PCP: UNIQUE Ward Status:REG S DC Location: [place] [address] History and Physical Date of Admission: 07/30/23 33 F who presents to the office today for *BGI established .08.12 with referral from PCP for evaluation of blood in her stools with years of bloating, cramping and intermittent diarrhea. PCP performedstool studies which were negative for C.Difficile, but fecal calprotectin was >3000.0. Colonoscopy 04.27.21 finding moderately active pancolitis ulcerative colitis, Chery Score 2; one 5mm pseudopolyp removed; congested mucosa in distal ileum. Shewas Start vancomycin and budesonide. OV 05.11.21 with continued diarrhea with blood, urgency, frequency and cramping. Start methotrexate. OV 12 with improvement of urgency and consistency of stool though continuedblood. Would like to pursue Humira in the new year. Continue methotrexate and budesonide until Humira start. OV .12.11 with continued improvement though liquid stools continue. Humira process initiated. Continue methotrexate and budesonide until Humira start. Humira started 08.10.21 OV 2.16. with continued improvement with resolution of blood and fecal incontinence; continued gas and abdominal cramping. OV 30. with budesonide tapering and intermittent symptoms of gas, watery BM,abdominal cramping, tenesmus. Continue Humira, start dicyclomine. OV 6.03.13 with improved symptoms with increase in Humira frequency; added Metamucil and this has been helpful also. Did experience increased stress since LV. OV 03.22.22 without symptoms r/t UC. Continue weekly Humira Surgery for ankle ligament repair with complication of massive saddle PE requiring ICU hospitalization with heparin; discharged 04.22.22 with outpatient Eliquis. No flare of UC symptoms during this time. OV 07.05.22 with continued UC symptom resolution. OV 3.. Reports she is doing well without GI manifestations of her UC. Also without rash, vision changes or joint pain. Contact 03.07.23 symptoms are well controlled. OV 11.08.14 reports she is doing very well at this time without active symptoms. Feels she is relearning her BM cues; she is having 1-2 BM with normal/formed consistency each day and feels some mild bloating/flatulence, feels she is having complete evacuation but perhaps smaller quantity. Since LV she has had a lot of health upheaval: gynecology interventions of metformin for weight loss and IUD placements which caused abdominal pain/cramping and start of mental health care to address anxiety related to life-threatening health issues in 2021. She would like to address weight in the future but currently wants to focus on mental health. ? CRP/ESR? Calpro/Lacto? Serum/ab 09.14.21 --/--? 62/-? --/-- 11.02.21 --/--? -/-? 5.6/neg? Increase frequency to weekly for two months 01.04.22 10.80/20? -/-? 7.7/neg? Continue weekly Humira 03.22.22 17.20/33? -/-? 9.8/neg? Ligament repair 07.05.22 4.63/21? -/-? --/-- 12.30.22? --/--? 8.6/neg? CBC, CMP, LFT, TB without pertinent abnormality. ReducedHumira to every other week. 02.28.23 --/--? --/--? 4.8/neg ROS Const Constitutional: No fatigue ENT ENT: No difficulty swallowing Gastro GI: No abdominal pain, belching, bloating, change in bowel habits, change in stool character, coffee ground emesis, constipation, cramping, diarrhea, heartburn, difficulty swallowing, feeling full early, excessive flatus, incontinent of stools, Vomiting blood/hematemesis, Blood in stool, loose stools,Black,tarry stools, nausea/dyspepsia, pain with swallowing, vomiting or other Musc Musculoskeletal: No joint pain Skin Skin: No yellowing of the eye or itchy eyes Psych Psychiatric: Positive for anxiety and No depression Endo Endocrine: No fatigue Aller/Imm Allergy/Immunologic: No itchy eyes Scot/Lymp Hematologic/Lymphatic: Positive for easy bruising; No easy bleeding Exam Const General: cooperative and comfortable Nutritional Appearance: average body habitus and well nourished [facility] Head: normal to inspection Ears: hearing grossly normal bilaterally Nose: external nose normal Face and sinus: normal facial exam Mouth: oral mucosae normal Throat: posterior oropharynx normal Eyes General: appearance normal, both eyes and all related structures Neck Neck: normal visual inspection Chest Chest palpation & inspection: normal inspection of the chest and normal palpation of entire chest wall Resp Effort & Inspection: normal respiratory effort Auscultation: Bilateral: Clear to Auscultation Cardio Palpation: normal PMI Rate: regular rate Rhythm: regular rhythm GI Inspection: normal to inspection Auscultation: normal bowel sounds Percussion: normal to percussion Palpation: no hepatosplenomegaly Skin General: no rashes or lesions noted Neuro General: patient alert Extrem General: normal to inspection Psych Affect: normal affect Quality Reporting Tobacco Screening ([facility] 138) Smoking Status: Never smoker Assessment and Plan Assessment and Plan (1) Ulcerative colitis with rectal bleeding: Status: Chronic Qualifiers: Ulcerative colitis location: ulcerative pancolitis Qualified Code(s): K51.011 - Ulcerative (chronic) pancolitis with rectal bleeding Plan: She is doing very well.? Subjectively she is having 1 formed bowel movement per day without any tenesmus, rectal bleeding or constipation.? She underwent ligament repair of her right foot. Unfortunately she developed a DVT which precipitated the area saddle embolus and the need for vascular surgery to removethe saddle embolus. She is off of control and on Eliquis 5 mg twice a dayfor the next 8 months. .? ? We will get adalimumab levels along with antibody levels, and CRP levels.? I suspect that her CRP levels were elevated at 10 secondary to chronic inflammation of her right foot.? All questions were answered and she will follow-up in 3 months. ? ? ? Orders: Orders: Orders Erythrocyte Sed Rate Today K51.911 - Ulcerative colitis, unspecified with rectalbleeding CRP Today K51.911 - Ulcerative colitis, unspecified with rectal bleeding Miscellaneous Lab Procedure Today K51.911 - Ulcerative colitis, unspecified withrectal bleeding I have examined the patient and the H&P has been reviewed. There are no clinicalchanges since date of exam. 07/30/23 0640 <Electronically signed by El Peterson DO> Cosigner Signature (if applicable): CC: UNIQUE Butler; El Peterson DO~ Signed [facility] Work Phone: Hospital course Narrative No data available for this section [facility] Hospital Discharge instructions No data available for this section [facility] Note* JASON ALAS DO: SIGN, VERIFY Event Display: EKG [ED AO] - CV Authored Date: [facility] Progress note No data available for this section [facility] Reason for referral (narrative)No reason for referral [facility] Work [facility]: Summary Purpose Family History No Family History Records Found No data available for this section No data available for this section No data available for this section No data available for this section No data available for this section No Family History Records FoundNo Family History Records Found Advance Directives No Advanced Directives Records Found Advance Directive Response Recorded Date/ Time Living Will No April 25 1 11:13am Power of Lathe Mechanic No April 25 11:13am Advance Directive Response Recorded Date/ Time Living Will No April 25 10:13am Power of Lathe Mechanic No April 25 10:13am Advance Directive Response Recorded Date/ Time Living Will No July 26 9:22am Power of Lathe Mechanic No July 26 9:22am Chief Complaint and Reason for Visit Chief Complaint 1 M FU E ORDER ABD PAIN, ULCERATIVE COLITIS 6 WK FU INT LABSPEC 6 wk FU PROMETHEUS Chief Complaint 6 WK FU INT LABSPEC 6 wk FU PROMETHEUS Osteochondritis dissecans, right ankle 2 MO FU E ORDERS Reason for Visit Ulcerative colitis w ith rectal bleeding Chief Complaint INT LABSPEC 6 wk FU PROMETHEUS Osteochondritis dissecans, right ankle 2 MO FU E ORDERS Reason for Visit Ulcerative colitis w ith rectal bleeding Chief Complaint Osteochondritis diss ecans, right ankle 2 MO FU E ORDERS 3 MO FU Reason for Visit Ulcerative colitis w ith rectal bleeding Ulcerative colitis with rectal bleeding Chief Complaint 3 MO FU 3 MO FU INT LABS Reason for Visit Ulcerative colitis w ith rectal bleeding Ulcerative colitis with rectal bleeding Chief Complaint 3 MO FU INT LABS 3 MO FU Reason for Visit Ulcerative colitis w ith rectal bleeding Ulcerative colitis with rectal bleeding Chief Complaint 3 MO FU EORDER Reason for Visit Ulcerative colitis w ith rectal bleeding Chief Complaint EORDER Chief Complaint 3 MO FU Reason for Visit Ulcerative colitis w ith rectal bleeding Chief Complaint Admit Date 4 M FU December 17, 2024 2:42p m Reason for Visit Admit Date Ulcerative colitis December 17, 2024 2:42p m Chief Complaint Admit Date 4 M FU December 17, 2024 2:42p m eorders December 17, 2024 4:17p m Reason for Visit Admit Date Fecal urgency December 17, 2024 2:42p m Ulcerative colitis December 17, 2024 2:42p m Additional Source Comments INFORMATION SOURCE (unrecogn ized section and content) DATE CREATED AUTHOR 02/10/2019 [facility] DATE CREATED AUTHOR AUTHOR'S ORGANIZ ATION 03/17/2024 [facility] ([place]) DATE CREATED AUTHOR AUTHOR'S ORGANIZ ATION 02/[facility] Goals (unrecognized section and content) Goals may be documented in a n alternate section Care Team (unrecognized sect ion and content) Care Team Personnel Name: HEIDY BUTLER APRN-THIRD HELPER Position: P4 Advanced Practice Nurse Med Service: Active Provider Member Role: Primary Care Physician Address: Address: [address] [facility] [place] [address]- Care Team Related Persons Name: LANA SANCHEZ Care Team Personnel Name: HEIDY BUTLER APRN-THIRD HELPER Position: P4 Advanced Practice Nurse Med Service: Active Provider Member Role: Primary Care Physician Address: Address: [address] [place] [address]- Care Team Related Persons Name: LANA SANCHEZ Care Team Personnel Name: HEIDY BUTLER INSPECTOR METAL CAN-THIRD HELPER Position: P4 Advanced Practice Nurse Med Service: Active Provider Member Role: Primary Care Physician Address: Address: [address] [place] [address] Care Team Related Persons Name: LANA SANCHEZ Care Team Personnel Name: HEIDY BUTLER INSPECTOR METAL CAN-THIRD HELPER Position: P4 Advanced Practice Nurse Med Service: Active Provider Member Role: Primary Care Physician Address: Address: [address] [place] [address]- Care Team Related Persons Name: LANA SANCHEZ Care Team Personnel Name: HEIDY BUTLER INSPECTOR METAL CAN-THIRD HELPER Position: P4 Advanced Practice Nurse Member Role: Primary Care Physician Address: Address: [address] [place] [address] Care Team Related Persons Name: LANA SANCHEZ Care Teams (unrecognized sec tion and content) Team Status: Active Member Role Status Dates Heidy Butler STUMMEL SELECTOR, STUMMEL SELECTOR-C Primary Care Provider Active Team Status: Inactive Member Role Status Dates Heidy Butler STUMMEL SELECTOR, STUMMEL SELECTOR-C Primary Care Provider, Referri ng Provider Active Dr. El Peterson DO Attending Provider Active Team Status: Inactive Member Role Status Dates Heidy Butler STUMMEL SELECTOR, STUMMEL SELECTOR-C Primary Care Provider Active Dr. El Peterson DO Attending Provider, Referring Provider Active Team Status: Inactive Member Role Status Dates Heidy Butler STUMMEL SELECTOR, STUMMEL SELECTOR-C Primary Care Provider Active LOREN SALEEM Attending Provider Active Team Status: Inactive Member Role Status Dates Heidy Butler STUMMEL SELECTOR, STUMMEL SELECTOR-C Primary Care Provider Active Dr. El Peterson DO Attending Provider Active Team Status: Active Member Role Status Dates Heidy Butler STUMMEL SELECTOR, STUMMEL SELECTOR-C Primary Care Provider, Referri ng Provider Active Dr. El Peterson DO Attending Provider, Other Prov ider Active Team Status: Inactive Member Role Status Dates Heidy Butler NP, STUMMEL SELECTOR-C Primary Care Provider Active Start: September 03, 2024 End: September 03, 2024 Dr. El Peterson DO Attending Provider Active Start: September 03, 2024 End: September 03, 2024 Dr. El Peterson DO Referring Provider Active Start: September 03, 2024 End: September 03, 2024 Team Status: Inactive Member Role Status Dates Heidy Butler NP, STUMMEL SELECTOR-C Primary Care Provider Active Start: December 17, 2024 End: December 17, 2024 Heidy Butler NP, STUMMEL SELECTOR-C Referring Provider Active Start: December 17, 2024 End: December 17, 2024 Stefani James STUMMEL SELECTOR-C Attending Provider Active Start: December 17, 2024 End: December 17, 2024 Team Status: Inactive Member Role Status Dates Heidy Butler NP, STUMMEL SELECTOR-C Primary Care Provider Active Start: December 17, 2024 End: December 17, 2024 Stefani James STUMMEL SELECTOR-C Attending Provider Active Start: December 17, 2024 End: December 17, 2024 Stefani James STUMMEL SELECTOR-C Referring Provider Active Start: December 17, 2024 End: December 17, 2024 Team Status: Active Member Role/Relationship Status Dates Heidy Butler NP, STUMMEL SELECTOR-C Primary Care Provider Active Team Status: Inactive Member Role/Relationship Status Dates Heidy Butler NP, STUMMEL SELECTOR-C Primary Care Provider Active Start: December 17, 2024 End: December 17, 2024 Heidy Butler STUMMEL SELECTOR, STUMMEL SELECTOR-C Referring Provider Active Start: December 17, 2024 End: December 17, 2024 Stefani James STUMMEL SELECTOR-C Attending Provider Active Start: December 17, 2024 End: December 17, 2024 Team Status: Inactive Member Role/Relationship Status Dates Heidy Butler NP, STUMMEL SELECTOR-C Primary Care Provider Active Start: December 17, 2024 End: December 17, 2024 Stefani James STUMMEL SELECTOR-C Attending Provider Active Start: December 17, 2024 End: December 17, 2024 Stefani James , STUMMEL SELECTOR-C Referring Provider Active Start: December 17, 2024 End: December 17, 2024 Team Status: Inactive Member Role/Relationship Status Dates Heidy Butler NP STUMMEL SELECTOR-Dianne Primary Care Provider Active Start: January 14, 2025 End: January 14, 2025 UNIQUE Parra Attending Provider Active Start: January 14, 2025 End: January 14, 2025 UNIQUE Parra Referring Provider Active Start: January 14, 2025 End: January 14, 2025 FOR RECORDS PERTAINING TO PATIENTS WHO ARE [...] BE BASED ON THE PRIMARY CLINICAL RECORDS. [facility] [employer] provides no warranty or guarantee of the accuracy or completeness of information in this document.
[2025-02-20] MEDS: Lactated Ringers 1,000 ML 15 ML IV (06:23)
[2025-02-20 06:25] LABS: Internal QC Validated? YES +Cl - CLEAR BKGD; Pregnancy, Urine Negative Negative; Record Kit Lot#,Urine Preg 0000962302
--- NOTE | 2025-02-20 06:31 | PCM.PRE.AN2 ---
ASA Classification* ASA Classification ASA Classification: 3 Assessment & Plan Anesthesia* Anesthesia Assessment Anesthesia Assessment: Discussed sedation and/or anesthesia options, risks, benefits, and alternatives with patient/parents/legal guardian/POA. Questions invited. The patient/parents/legal guardian/POA seems to understand and agrees to proceed with anesthesia plan. Reviewed the physical assessment, medical history, allergy history and patient home medications list prior to surgery/procedure/anesthetic and documented any changes. Performed airway and anesthesia risk assessments. Anesthesia Type Anesthesia Type: MAC History Source History Obtained from:: Patient and Chart Anesthesia Focused Assessment* Temperature: 98.4 F Pulse Rate: 86 Blood Pressure: 123/81 Respiratory Rate: 16 Pulse Ox: 100 Oxygen Delivery Method: Room Air Airway Assessment Mouth opens: >3 cm Mallampati Score: I Teeth Condition: Intact Neck Range of motion (ROM): Full ROM Labs Anesthesia Preop lab: CBC WBC 14.2 K/mm3 (4.4-11.0) H 12/17/24 16:22 12/17/24 RBC 4.28 M/mm3 (4.2-5.4) 12/17/24 16:22 12/17/24 Hgb 13.1 g/dL (12.0-15.0) 12/17/24 16:22 12/17/24 Hct 38.7 % (37-47) 12/17/24 16:22 12/17/24 Plt Count 334 K/mm3 (150-450) 12/17/24 16:22 12/17/24 CHEMISTRY Potassium 3.8 mmol/L (3.3-5.1) 12/17/24 16:22 12/17/24 Sodium 136 mmol/L (133-145) 12/17/24 16:22 12/17/24 BUN 8 mg/dL (4-19) 12/17/24 16:22 12/17/24 Creatinine 0.64 mg/dL (0.70-1.20) L 12/17/24 16:22 12/17/24 Glucose 83 mg/dL (70-99) 12/17/24 16:22 12/17/24 COAG PT 12.9 SECONDS (11.7-14.9) 12/28/21 13:18 06/08/22 Urine Test Negative Negative 02/20/25 06:10 02/20/25 Pre-Assessment Diagnosis/Proposed Procedure Planned Operative Procedure(s): COLONOSCOPY Anesthesia History Anesthesia History - hair and makeup designer: Anesthesia History - hair and makeup designer Hx Hospitalization No 02/16/25 11:52 Any Problems With Anesthesia No 02/16/25 11:52 Cholinesterase deficiency No 02/16/25 11:52 You/Your Family Experience No 02/16/25 11:52 fever (hyperthermia) with Relationship Recent Exposure to Contagious No 02/20/25 06:21 Disease Does patient have nerve No 02/16/25 11:52 stimulator Patient instructed to have device shut off --Does patient have Pacemaker No 02/20/25 06:21 or ICD? When Was Last Pacemaker Check QUESTION #4 FULL TEXT: You/Your Family Experience fever (hyperthermia) with Anesthesia Last Oral Intake Last Oral intake: Last Oral Intake NPO since 01:00 02/20/25 06:21 Meds taken in AM with sips of water? Meds patient instructed to take am of surgery Any additional information?: Yes NPO since: 01:00 (Patient finished prep at 1 AM.) Meds taken in AM with sips of water?: No PONV PONV - hair and makeup designer: PONV - hair and makeup designer Female Yes 02/16/25 11:52 HX of Motion Sickness Yes 02/16/25 11:52 HX of N/V After Surgery Yes 02/16/25 11:52 Non-Smoker Yes 02/16/25 11:52 Duration of Surgery greater No 02/16/25 11:52 than 60 minutes Number of Risk Factors 4 02/16/25 11:52 PONV Score Severe Risk 02/16/25 11:52 Height & Weight Height & Weight: Anesthesia: Height & Weight Height 5 ft 5 in 02/20/25 06:21 Weight: 130.4 kg 02/20/25 06:21 Body Mass Index (BMI) 47.8 02/20/25 06:21 Respiratory Assessment Respiratory Assessment - hair and makeup designer: Respiratory Tract Infection Hx - hair and makeup designer Hx Respiratory Tract Infection No 02/16/25 11:52 STOP Sleep Apnea STOP Sleep Apnea - hair and makeup designer: STOP Sleep Apnea - hair and makeup designer Hx Hypertension No 02/16/25 11:52 Hx Sleep Apnea No 02/16/25 11:52 CPAP BIPAP Do you snore loudly (louder No 02/16/25 11:52 than talking or can be heard Do you often feel tired/ No 02/16/25 11:52 fatigued/ sleepy during daytime? Has anyone observed you stop No 02/16/25 11:52 breathing during sleep? STOP Results Negative 02/16/25 11:52 QUESTION #5 FULL TEXT : Do you snore loudly (louder than talking or can be heard through closed doors)? 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 Specify any problems Hx of Preganancy in last 3 No 02/16/25 11:52 Months Nurse Filling Out Transfusion VCHRISTIN 02/16/25 11:52 & Questions: Date: 02/16/25 02/16/25 11:52 Time: 11:53 02/16/25 11:52 Patient unable to answer at this time (ie. confused, unrespo /Reproduction History /Reproductive History - hair and makeup designer: /Reproductive Hx- hair and makeup designer Hx Now No 02/16/25 11:52 Gestational Age (in weeks): EDC: Hx Hx Para Hx Section SAB No 02/16/25 11:52 Active Medications Active Medications: Current Medications Generic Name Dose Route Start Last Admin Trade Name Freq PRN Reason Stop Dose Admin Lactated Ringer's 1,000 mls @ 15 mls/hr 02/20/25 06:00 02/20/25 06:23 IV 15 mls/hr .Q48H CELSO Administration PFSH Medical History Migraine headache History of GI bleed Hx of ulcerative colitis Shortness of breath on exertion DVT (deep venous thrombosis) Leg cramps Hx of dislocation of ankle Ulcerative colitis with rectal bleeding PCOS (polycystic ovarian syndrome) Wears glasses Depression Anxiety Alcohol use Non-smoker Vitamin D-dependent rickets, type 1 Hypertriglyceridemia Hidradenitis suppurativa Allergic rhinitis Acne Anemia Hematochezia Home Medications ?Medication ?Instructions ?Recorded ?Last Taken ?Type ascorbic acid (vitamin C) 250 mg 250 mg PO DAILY 04/22/21 Unknown History tablet calcium carbonate (Calcium 500) 1,000 mg PO DAILY 04/22/21 Unknown History cetirizine 10 mg tablet 10 mg PO DAILY 04/22/21 07/29/23 History cholecalciferol (vitamin D3) 50 50 mcg PO DAILY 04/22/21 Unknown History mcg (2,000 unit) capsule clindamycin phosphate 1 % lotion 1 applic topical BID PRN 04/22/21 07/29/23 History hydradenitis lactobacillus combination no.4 3 3,000 mmu cells PO DAILY 04/22/21 07/29/23 History billion cell capsule (Probiotic) spironolactone 50 mg tablet 50 mg PO DAILY hydradenitis 04/22/21 07/29/23 History mecobalamin (vitamin B12) 1,000 1,000 mcg sublingual DAILY 09/07/21 Unknown History mcg disintegrating tablet,sublingual folic acid 1 mg tablet 1 mg PO DAILY #90 tabs 11/03/24 Unknown Rx ustekinumab 90 mg/mL subcutaneous 90 mg subcut Q8W #1 mL 11/03/24 Unknown Rx syringe (Stelara) dicyclomine 20 mg tablet 20 mg PO TID PRN abdominal pain 12/17/24 Unknown Rx #90 tabs nitrofurantoin macrocrystal 100 mg 100 mg PO QHS PRN PREVENTION UTI 12/17/24 Unknown History capsule ondansetron 4 mg disintegrating 4 mg PO Q8H #5 tabs 12/23/24 Unknown Rx tablet sod picosulf 10 mg-magnes 3.5 175 ml PO QAM 1 dose #350 mL 12/23/24 Unknown Rx gram-citric 12 gram/175 mL oral solution (Clenpiq) etonogestrel 68 mg subdermal 1 implant subdermal .Q3YRS 02/16/25 Unknown History implant (Nexplanon) inulin-sorbitol 2 gram chewable 2 tab PO DAILY 02/16/25 Unknown History tablet (Fiber Supplement (inulin)) Allergy/AdvReac Type Severity Reaction Status Date / Time milk (dairy) Allergy Severe Diarrhea Verified 02/20/25 06:20 NSAIDS (Non-Steroidal AdvReac Intermediate Bleeding Verified 02/20/25 06:36 Anti-Inflamma hydrocodone (From Vicodin) AdvReac paranoia Verified 02/20/25 06:20 Surgical History Hx of colonoscopy History of wisdom tooth extraction Social History 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
--- NOTE | 2025-02-20 07:00 | COLBX_PTH ---
PATIENT: WALT SANCHEZ LOC: EN U#:[id number] AGE/SX: 35/F ROOM: RE02/20/[address]: Dr. Adalberto Peterson DO : 1990 BED: DIS: 02/20/2025 SPEC #: [id number] RECD: 02/20/25 09:50 STATUS: MERON RENavya #: [id number] SHAWN: 02/20/25 07:[address]: Adalberto Peterson DEPT: SURGICAL PATHOLOGY RECD BY: Shadi Gomez ENTERED: 02/20/25 10:51 SP TYPE: COLON BX OT DR: Heidy Hopkins, DORMITORY SUPERVISOR-C Tissues: A - Cecum, NOS B - Ascending colon C - Transverse colon D - Descending colon E - Rectum, NOS Procedures: Surgery Specimen Level IV HEADER OPERATION: Colonoscopy PRE-OP DIAGNOSIS: Ulcerative colitis, fecal urgency TISSUE SUBMITTED: A- Cecum biopsy, B- Ascending colon biopsy, C- Transverse colon biopsy, D- Descending / sigmoid colon biopsy, E- Rectum biopsy MICROSCOPIC DIAGNOSIS A. Cecum, biopsy: - Focal active colitis. - Negative for dysplasia. B. Ascending colon, biopsy: - Quiescent chronic colitis. - Negative for dysplasia. C. Transverse colon, biopsy: - Quiescent chronic colitis. - Negative for dysplasia. D. Descending / sigmoid colon, biopsy: - Mildly active chronic colitis. - Negative for dysplasia. E. Rectum, biopsy: - Mildly active chronic colitis. - Negative for dysplasia. MICROSCOPIC DESCRIPTION Slides are reviewed. GROSS DESCRIPTION A. Received in fixative is one container labeled with the patient's name and designated Cecum biopsy. The specimen consists of one irregular fragment of light dejesus soft tissue that measures 0.5 cm. The specimen is totally submitted in one cassette. B. Received in fixative is one container labeled with the patient's name and designated Ascending colon biopsy. The specimen consists of two irregular fragments of light dejesus soft tissue that in aggregate measure 0.2 and 0.4 cm. The specimen is totally submitted in one cassette. C. Received in fixative is one container labeled with the patient's name and designated Transverse colon biopsy. The specimen consists of four irregular fragments of light dejesus soft tissue that in aggregate measure 0.2 to 0.4 cm. The specimen is totally submitted in one cassette. D. Received in fixative is one container labeled with the patient's name and designated Descending / sigmoid colon. The specimen consists of multiple irregular fragments of light dejesus soft tissue that in aggregate measure 1.4 x 0.6 x 0.1 cm. The specimen is totally submitted in one cassette. E. Received in fixative is one container labeled with the patient's name and designated Rectum biopsy. The specimen consists of two irregular fragments of light dejesus soft tissue, each measuring 0.4 cm. The specimen is totally submitted in one cassette. TN 02/20/2025 CPT:04128x1
--- NOTE | 2025-02-20 07:36 | HP.PCM_ITS ---
HPI - General General Date of Admission: 02/20/25 Date of Service: 02/20/25 HPI Narrative WALT SANCHEZ, is a 35 F who presents with the Chief Complaint: UC follow-up Initial Diagnosis: 2020 Presenting Symptoms: diarrhea, bleeding, pain CBC: 08/06/2024 WBC 12.3, HGB 13 CMP: 08/06/2024 normal transaminases and Cr CRP: 08/06/2024 14.30 VITAMIN 25.1 Ustekinumab: 08/06/2024 level 9.1 w/o Ab QUANTIFERON: 12/30/2022 negative HBVsAb: HBVsA07/27/2021 negative HBV Core Total Ab: 07/27/2021 negative Fecal Calprotectin: 09/03/2024 121 09/14/2021 62 COLON 07/30/2023 - negative for active inflammation - Mild (Chery Score 1) ulcerative colitis Inflammation was found in a continuous and circumferential pattern from the rectum to the sigmoid colon. This was graded as Chery Score 1 (mild, with erythema, decreased vascular pattern, mild friability), and when compared to the previous examination, the findings are improved. COLON 04/27/2021 - Rectal inflammatory pseudopolyp, random biopsies moderate to marked chronic active colitis (no dysplasia), TI biopsy unremarkable - Moderately active (Chery Score 2) pancolitis ulcerative colitis. A 5 mm polyp was found in the rectum (benign-appearing lesion). A patchy area of the distal ileum was congested. This was biopsied with a cold forceps for histology. Verification of patient identification for the specimen was done. Estimated blood loss was minimal. MEDS: dicyclomine (start 2021), September 2023 Colestipol added for diarrhea BIOLOGICS: Stelara start date December 2023 - due to developing AB to Humira Humira start 08-10-2021 - October 2021 increased to weekly -- January 2023 reduced to bi-weekly (Humira level 4.27 February 2023) Methotrexate start 05/11/2021 to 07/06/2021 increased bleeding with tapering Budesonide, Budesonide was resumed and Methotrexate discontinued STEROIDS: Budesonide tapered off since starting Stelara - discontinued February 2024 - caused terrible dry mouth, weight gain, trouble sleeping VACCINES COVID: YES Varicella Vaccine: 07/27/2021 VZV Ab >219 - immune Shingles Vaccine: denies Hepatitis B Vaccine: unknown Pneumonia Vaccine: denies Influenza Vaccine: YES IBD SYMPTOMS: Bowel movements are: can have formed stools, diarrhea, acidic burning stool, 2x - 6x a day - some foods are specific triggers Blood noted in stools: denies Bowel movement urgency present: YES Stool incontinence: denies in the past 9 months Nocturnal BM's: YES, but infrequent Abdominal pain: denies Rectal pain: occasional with frequent stools QOL: really misses hiking and going for walks, fears anytime she gets in a car for a long drive - she is not missing work - tearful when telling me about her QOL - reports she has OCD and obsess over lifestyle and - she is seeing a therapist - dicyclomine will cause dry mouth and slow down stools - we can discuss can use PRN ROS: Fever: denies Night Sweats: denies Visual changes: denies Mouth sores: denies Joint pain: denies Skin rashes/Lesions: denies Weight changes: denies Smoking status: denies NSAID use: denies Discussed importance of influenza vaccine yearly [facility] Medical History Migraine headache History of GI bleed Hx of ulcerative colitis Shortness of breath on exertion DVT (deep venous thrombosis) Leg cramps Hx of dislocation of ankle Ulcerative colitis with rectal bleeding PCOS (polycystic ovarian syndrome) Wears glasses Depression Anxiety Alcohol use Non-smoker Vitamin D-dependent rickets, type 1 Hypertriglyceridemia Hidradenitis suppurativa Allergic rhinitis Acne Anemia Hematochezia Home Medications ?Medication ?Instructions ?Recorded ?Last Taken ?Type ascorbic acid (vitamin C) 250 mg 250 mg PO DAILY 04/22 Unknown History tablet calcium carbonate (Calcium 500) 1,000 mg PO DAILY 08/12 Unknown History cetirizine 10 mg tablet 10 mg PO DAILY 04/22/2102/12 History cholecalciferol (vitamin D3) 50 50 mcg PO DAILY Unknown History mcg (2,000 unit) capsule clindamycin phosphate 1 % lotion 1 applic topical BID PRN 04/22/21 07/29/23 History hydradenitis lactobacillus combination no.4 3 3,000 mmu cells PO DA SRIDHAR 10/01/21 01/07/24 History billion cell capsule (Probiotic) spironolactone 50 mg tablet 50 mg PO DAILY hydradeniti s 04/22/21 07/29/23 History mecobalamin (vitamin B12) 1,000 1,000 mcg sublingual D AILY 09/07/21 Unknown H istory mcg disintegrating tablet,sublingual folic acid 1 mg tablet 1 mg PO DAILY #90 tabs 11/03 Unknown Rx ustekinumab 90 mg/mL subcutaneous 90 mg subcut Q8W #1 mL 11/03/24 Unknown Rx syringe (Stelara) dicyclomine 20 mg tablet 20 mg PO TID PRN abdominal p ain 12/17/24 Unknown Rx #90 tabs nitrofurantoin macrocrystal 100 mg 100 mg PO QHS PRN P REVENTION UTI 12/17/24 Unknown History capsule ondansetron 4 mg disintegrating 4 mg PO Q8H #5 tabs Unknown Rx tablet sod picosulf 10 mg-magnes 3.5 175 ml PO QAM 1 dose #35 0 mL 12/23/24 Unknown Rx gram-citric 12 gram/175 mL oral solution (Clenpiq) etonogestrel 68 mg subdermal 1 implant subdermal .Q3YR S 02/16/25 Unknown History implant (Nexplanon) inulin-sorbitol 2 gram chewable 2 tab PO DAILY 5 Unknown History tablet (Fiber Supplement (inulin)) Allergy/AdvReac Type Severity Reaction Status Date / Time milk (dairy) Allergy Severe Diarrhea Verified 02/20/25 06:20 NSAIDS (Non-Steroidal AdvReac Intermediate Bleeding Verified 02/20/25 06:36 Anti-Inflamma hydrocodone (From Vicodin) AdvReac paranoia Verified 02/20/25 06:20 Surgical History Hx of colonoscopy History of wisdom tooth extraction Social History 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 [place] Smoking Status: Never smoker ROS Constitutional Constitutional: Denies fatigue, fever(s), poor appetite, weight gain or weight loss Gastrointestinal Gastrointestinal: Denies belching, bloating, change in bowel habits, change in stool character, chewing difficulty, coffee ground emesis, constipation, cramping, diarrhea, dyspepsia, dysphagia, early satiety, excessive flatus, fecal incontinence, heartburn, hematemesis, hematochezia, hemorrhoids, loose stools, melena, nausea, odynophagia, rectal bleeding, tenesmus, vomiting or weight changes Vital Signs Vital Signs Vital Signs: 02/20/25 06:21 02/20/25 06:21 02/20/25 06:37 Temperature 98.4 F 98.4 F Temperature Source Temporal Pulse Rate 86 86 Respiratory Rate 16 16 Respiratory Pattern Normal Blood Pressure 123/81 H 123/81 H Blood Pressure Mean 95 Blood Pressure Source Monitor Blood Pressure Position Semi-Fowlers Blood Pressure Location Right Arm Pulse Ox 100 100 Oxygen Delivery Method Room Air Room Air Weight Weight: 287 lb 7.724 oz Body Mass Index (BMI) 47.8 Physical Exam Const alert, oriented x3, no apparent distress and healthy appearing General Appearance: cooperative GI normal to inspection, nondistended, normoactive bowel sounds, soft to palpation, non-tender and non-distended Percussion: normal to percussion Rectal Exam: deferred Results Lab / Micro Data Labs: Laboratory Results - last 24 hr 02/20/25 06:10: Urine Test Negative Assessment & Plan Assessment/Plan (1) Ulcerative colitis with rectal bleeding: QUALIFIERS: Ulcerative colitis location: ulcerative pancolitis Qualified Code(s): K51.011 - Ulcerative (chronic) pancolitis with rectal bleeding (2) Fecal urgency: PLAN: Assessment and Plan Assessment and Plan (1) Ulcerative colitis: Status: Inactive (2) Fecal urgency: Status: Acute Orders: Orders Quantiferon TB-Gold+ Today K51. - Ulcerative colitis, unspecified, without complications Hepatitis B Surface Antibody Today K5. - Ulcerative colitis, unspecified, without complications CBC W/Diff, Automated Today K51. - Ulcerative colitis, unspecified, without complications Comprehensive Metabolic Profil Today K51.90 - Ulcerative colitis, unspecified, without complications CRP Today K51.90 - Ulcerative colitis, unspecified, without complications Calprotectin, Stool Today K51. - Ulcerative colitis, unspecified, without co mplications Medications: New sod picosulf-mag ox-citric ac 10 mg-3.5 gram- 12 gram/175 mL (Clenpiq) take as directed for split dose bowel prep 175 mL PO QAM 350 mL 0RF ondansetron take two tablets PO two hours prior to start of bowel prep and one every 4 hours as needed for N/V 4 mg PO Q8H 5 tabs 0RF Refilled dicyclomine 20 mg PO TID PRN 90 tabs 2RF abdominal pain Plan 34-year-old female with a history of ulcerative colitis diagnosed in April 2021, initially presenting with pancolitis (Chery 2) and markedly elevated fecal calprotectin (> 3000). She was previously treated with budesonide and methot rexate (discontinued due to worsening rectal bleeding), followed by initiation and dose escalation of Humira. After her temporary response, she developed antibodies to Humira in mid 2023 and was transitioned to Stelara, which she continues every 8 weeks. Most recent colonoscopy in July 2023 showed mild endoscopic disease (Chery 1) in the rectosigmoid region with biopsies negative for active inflammation. Her fecal calprotectin has trended down (121 as of August 2024), and CRP remains mildly elevated (14.3). She reports mixed bowel habits with urgency and occasional nocturnal symptoms but denies bleeding or incontinence. Her quality of life remains significantly impacted by symptoms and anxiety about bowel urgency, limiting outdoor and travel activities. History of OCD may be contributing to symptom distress, and she is currently engaged in therapy. Symptoms may reflect a combination of mild residual UC activity and IBS overlap. We discussed as needed dicyclomine for symptomatic relief. Labs including CBC, CMP, CRP, fecal calprotectin, HBVsAb, and Quantiferon have been ordered, and she will proceed with a surveillance colonoscopy. No current use of antidiarrheal agents. Will continue monitoring response to Stelara. She will follow-up in the office postprocedure. Note: [employer] speech recognition healthcare corporate account director software was used to create portions of this document. Sound-alike and misspelled words, as well as other healthcare corporate account director errors may be contained in the documentation. Patient Instructions: Continue Stelara every 8 weeks Trial Dicyclomine as needed Avoid known trigger foods Complete labs (CBC, CMP, CRP, Quantiferon, HBVsAb) and stool testing (fecal calprotectin)
--- NOTE | 2025-02-20 08:08 | OP.COLON_ITS ---
Patient Name: Megan Meza Procedure Date: 02/20/2025 7:37 AM Date of : 1990 Age: 35 Procedure: Colonoscopy Indications: Left-sided chronic ulcerative colitis, Disease activity assessment of left-sided chronic ulcerative colitis, Assess therapeutic response to therapy of left-sided chronic ulcerative colitis Providers: Adalberto Peterson DO Referring MD: Heidy Hopkins Medicines: Monitored Anesthesia Care Patient Profile: This is a 35 year old female. Refer to note in patient chart for documentation of history and physical. Last Colonoscopy: within the past 3 years. Complications: No immediate complications. Procedure: Pre-Anesthesia Assessment: - Prior to the procedure, a History and Physical was performed, and patient medications and allergies were reviewed. The patient is competent. The risks and benefits of the procedure and the sedation options and risks were discussed with the patient. All questions were answered and informed consent was obtained. Patient identification and proposed procedure were verified by the physician in the pre-procedure area. Mental Status Examination: alert and oriented. Airway Examination: normal oropharyngeal airway and neck mobility. Respiratory Examination: clear to auscultation. CV Examination: normal. Prophylactic Antibiotics: The patient does not require prophylactic antibiotics. Prior Anticoagulants: The patient has taken no anticoagulant or antiplatelet agents except for NSAID medication. ASA Grade Assessment: II - A patient with mild systemic disease. After reviewing the risks and benefits, the patient was deemed in satisfactory condition to undergo the procedure. The anesthesia plan was to use monitored anesthesia care (MAC). Immediately prior to administration of medications, the patient was re-assessed for adequacy to receive sedatives. The heart rate, respiratory rate, oxygen saturations, blood pressure, adequacy of pulmonary ventilation, and response to care were monitored throughout the procedure. The physical status of the patient was re-assessed after the procedure. After I obtained informed consent, the scope was passed under direct vision. Throughout the procedure, the patient's blood pressure, pulse, and oxygen saturations were monitored continuously. The colonoscope was introduced through the anus and advanced to the cecum, identified by appendiceal orifice and ileocecal valve. The colonoscopy was performed without difficulty. The patient tolerated the procedure well. The quality of the bowel preparation was adequate. The ileocecal valve, appendiceal orifice, and rectum were photographed. Scope In: 7:49:49 AM Scope Withdrawal Time 0 hours 6 minutes 53 seconds Scope Out: 8:00:08 AM Total Procedure Duration Time 0 hours 10 minutes 19 seconds Findings: The perianal and digital rectal examinations were normal. Inflammation was found in a continuous and circumferential pattern from the anus to the descending colon. This was graded as Chery Score 2 (moderate, with marked erythema, absent vascular pattern, friability, erosions), and when compared to the previous examination, the findings are worsened. Biopsies were taken with a cold forceps for histology. Verification of patient identification for the specimen was done. Estimated blood loss was minimal. The exam was otherwise without abnormality on direct and retroflexion views. Impression: - Moderately active (Chery Score 2) ulcerative colitis, worsened since the last examination. Biopsied. - The examination was otherwise normal on direct and retroflexion views. Recommendation: - Discharge patient to home. - Resume previous diet. - Continue present medications. - Await pathology results. - Repeat colonoscopy for surveillance. Procedure Code(s): --- Professional --- 02898, Colonoscopy, flexible; with biopsy, single or multiple CPT copyright 2021 [employer]. All rights reserved. The codes documented in this report are preliminary and upon front desk host review may be revised to meet current compliance requirements. Adalberto Peterson DO 02/20/2025 8:08:01 AM This report has been signed electronically. Number of Addenda: 0 Note Initiated On: 02/20/2025 7:37 AM
--- NOTE | 2025-02-20 08:08 | OP.PROVAT_ITS ---
02/20/2025 Heidy Hopkins Re : Colonoscopy procedure for Megan Hopkins This procedure was performed on Thursday, February 20, 2025. My impressions and recommendations are as follows: Impressions : - Moderately active (Chery Score 2) ulcerative colitis, worsened since the last examination. Biopsied. - The examination was otherwise normal on direct and retroflexion views. Recommendations : - Discharge patient to home. - Resume previous diet. - Continue present medications. - Await pathology results. - Repeat colonoscopy for surveillance. My findings are described in the full procedure note, which is enclosed. If I can be of further assistance, please feel free to contact me at . Sincerely, Adalberto Peterson, 02/20/2025 8:08:01 AM This report has been signed electronically.
--- NOTE | 2025-02-20 08:10 | PCM.POST.ANE ---
Anesthesia: Postop Eval I Current Vital Signs Temperature: 97.2 F Pulse Rate: 83 Blood Pressure: 99/58 Respiratory Rate: 16 Pulse Ox: 97 Oxygen Delivery Method: Room Air Assessment Airway patent: Yes Spontaneous unlabored respirations: Yes Mental status: Awake and Calm nausea: No Vomiting: No Anesthesia Complication: No Fluid Hydration Crystalloid volume administer (ml): 500 Total IV fluid infused: 500 Progress Note Anesthesia document: Postop Eval 1 completed: Yes
--- NOTE | 2025-02-20 10:50 | PCM.POSTANE2 ---
Anesthesia Postop Eval I Sum Postop Eval Completion status Anesthesia document: Postop Eval 1 completed: Yes Anesthesia Postop Eval I Summary Anesthesia Postop Eval I Summary: Anesthesia Postop Eval I: Assessment Summary Airway patent Yes 02/20/25 08:11 [email or web address] Spontaneous unlabored Yes 02/20/25 08:11 [email or web address] respirations Mental status Awake,Calm 02/20/25 08:11 [email or web address] nausea No 02/20/25 08:11 [email or web address] Vomiting No 02/20/25 08:11 [email or web address] Anesthesia Postop Eval I: Fluid Summary Crystalloid volume administer 500 02/20/25 08:11 [email or web address] (ml) Colloids volume administered ( ml) Blood Product volume administered (ml) Total IV fluid infused 500 02/20/25 08:11 [email or web address] Anesthesia Postop Eval I: Summary Notes Anesthesia Complication No 02/20/25 08:11 [email or web address] Anesthesia Complication Comment: Post-operative progress note Anesthesia: Postop Eval II Evaluation Mental status: Awake Pain Level: 0 nausea: No Vomiting: No
== END 2025-02-20 08:53 | disposition home or self-care (01) ==
LOC: EN 06:04 → AC 06:05
PROVIDERS: Anesthesiology; PCP Nurse Practitioner Family; Referring Provider Nurse Practitioner Family; Visit Provider Internal Medicine Gastroenterology
PROC: 0DJD8ZZ Inspection of Lower Intestinal Tract, Via Natural or Artificial Opening Endoscopic (ICD-10-PCS; CPT 45378; principal; 2025-02-20 06:55)
DX: K51.011 Ulcerative (chronic) pancolitis with rectal bleeding (principal); E28.2 Polycystic ovarian syndrome; E55.9 Vitamin D deficiency, unspecified; L73.2 Hidradenitis suppurativa; J30.9 Allergic rhinitis, unspecified; Z87.19 Personal history of other diseases of the digestive system; Z86.718 Personal history of other venous thrombosis and embolism; Z79.899 Other long term (current) drug therapy
CPT/HCPCS: 45380; 81025; 88305; J2405

== ENCOUNTER → 2025-03-11 | Outpatient (CLI) | payer OTHER, SELFPAY ==
[2025-03-13 14:09] LABS: Giardia Lamblia, Stool EIA Negative (Negative)
[2025-03-15 00:07] LABS: Calprotectin, Stool 278 ug/g (0-120)
== END | disposition home or self-care (01) ==
LOC: LAB 14:14
PROVIDERS: PCP Nurse Practitioner Family; Referring Provider Nurse Practitioner Acute Care; Visit Provider Nurse Practitioner Acute Care
DX: K51.011 Ulcerative (chronic) pancolitis with rectal bleeding (principal); R15.2 Fecal urgency; R19.7 Diarrhea, unspecified
CPT/HCPCS: 36415; 83993; 87177; 87209; 87329; 87493; 87506

== ENCOUNTER → 2025-05-20 | Outpatient (CLI) | payer OTHER, SELFPAY ==
[2025-05-20 15:08] LABS: Hematocrit 40.3 % (37-47); Hemoglobin 13.6 g/dL (12.0-15.0); Immature Granulocytes Count 0.050 X10^3/uL (0.0-0.0); Mean Corp Hgb Conc 33.7 g/dL (32-36); Mean Corpuscular Volume 90.4 fL (81-99); Mean Platelet Vol. 10.9 fl (6.2-12.0); NRBC Flagged by Analyzer 0 % (0-5); Platelet Count 339 K/mm3 (150-450); RBC Distribution Width CV 12.2 % (11.6-14.6); RBC Distribution Width SD 40.5 fl (35.1-43.9); Red Blood Count 4.46 M/mm3 (4.2-5.4); White Blood Count 11.9 K/mm3 (4.4-11.0)
[2025-05-20 15:56] LABS: AST(SGOT) 19 U/L (<=31); Alanine Aminotransfer ALT/SGPT 22 U/L (<=34); Albumin, Serum 4.4 g/dL (3.5-5.0); Alkaline Phosphatase 72 U/L (35-104); Anion Gap 11 (5-15); BUN 9 mg/dL (4-19); BUN/Creat Ratio 13.0 RATIO (10-20); CRP 9.52 mg/L (0.0-3.0); Calcium,Total 9.9 mg/dL (7.6-11.0); Carbon Dioxide 25.3 mmol/L (21.0-32.0); Chloride 102 mmol/L (98-108); Globulin 3.9 g/dL (2.2-4.2); Glucose 93 mg/dL (70-99); Potassium 4.4 mmol/L (3.3-5.1); Vitamin B12 961 pg/mL (180-914); Vitamin D,25 Hydroxy 24.7 ng/mL (30-100)
== END | disposition home or self-care (01) ==
LOC: LAB 14:17
PROVIDERS: PCP Nurse Practitioner Family; Referring Provider Nurse Practitioner Acute Care; Visit Provider Nurse Practitioner Acute Care
DX: K51.50 Left sided colitis without complications (principal); R19.7 Diarrhea, unspecified; R15.2 Fecal urgency
CPT/HCPCS: 36415; 80053; 82306; 82607; 85025; 86140